=== PATIENT | male | born 1950 | race Caucasian/White ===

== ENCOUNTER → 2021-09-20 02:31 | Outpatient (CLI) | payer MEDICARE, SELFPAY ==
[2021-09-20 20:10] LABS: SARS-CoV-2 RNA PCR Negative
== END ==
PROVIDERS: PCP Family Medicine; Visit Provider Internal Medicine Gastroenterology
DX: Z01.812 Encounter for preprocedural laboratory examination (principal); Z20.822 Contact with and (suspected) exposure to COVID-19
CPT/HCPCS: C9803; U0003; U0005

== ENCOUNTER 2021-09-23 02:07 | Day surgery (SDC) | payer MEDICARE, SELFPAY ==
[2021-09-06 09:28] VITALS: BMI 26.7
--- NOTE | 2021-09-23 07:57 | WPDANESEPPF ---
Anes - Initial Pre Proc Eval Procedure: Operation Date: 09/23/21 10:30 Proposed Procedures p Screening Colonoscopy - Matheus Oliva MD Date/Time: 09/23/21 07:57 Surgeon: Matheus Oliva MD Pre Op Diagnosis: hx of colon polyps Patient Data Age: 71 Gender: M Height: 1.8 m Weight: 87 kg Allergies Allergy/AdvReac Type Severity Reaction Status Date / Time No Known Allergies Allergy Mild Verified 09/23/21 09:46 Home Medications Medication Instructions Recorded Confirmed Type albuterol sulfate 90 mcg/actuation 2 puff INHALATION Q4-6H PRN gm 10/06/19 09/23/21 History aerosol inhaler atorvastatin 10 mg tablet 10 mg PO DAILY #90 tablet 06/27/21 09/23/21 Rx amlodipine 10 mg tablet 10 mg PO DAILY #90 tablet 08/01/21 09/23/21 Rx cholecalciferol (vitamin D3) 25 mcg PO DAILY 09/06/21 09/23/21 History [Vitamin D3] fluticasone propionate 50 2 spray INTRANASAL DAILY #8.8 ml 09/06/21 09/23/21 Rx mcg/actuation nasal spray,suspension glucos sul 8MWj-[id number]-rocwh-C-Mn 1 cap PO DAILY 09/06/21 09/23/21 History [Glucosamine Chondroitin] methylprednisolone 4 mg tablets in See Rx Instructions PO PER PKG DIR 09/06/21 09/23/21 Rx a dose pack #21 ea doywrtaf-kgc-ffois-vit K-lycop 1 tablet PO DAILY 09/06/21 09/23/21 History [One-A-Day Men's Multivitamin] azelastine 137 mcg (0.1 %) nasal 1 spray INTRANASAL Q12H #30 ml 09/08/21 09/23/21 Rx spray aerosol Patient hx anesthesia problems: none Family hx anesthesia problems: none Results Review: All pre-operative results and documents have been reviewed as part of the pre-operative evaluation. [facility] Past Medical History Medical History Asthma Benign hypertension Eczema Heart murmur History of colon polyps Hypertension Osteoarthritis of left knee Surgical History Surgical History History of tonsillectomy S/P excision of lipoma 1980s - Back Family History Family History Mother Carcinoma of colon Social History Social History Smoking status: Never smoker Second hand tobacco smoke exposure: No Alcohol intake: never Substance use: never Substance use type: does not use Living arrangements: with family Gender identity (if verbalized by the patient): Male Spiritual care concerns: No Anes - Eval Final PreProcedure Day of Procedure 09/23/21 07:57 Patient weight: overweight Heart: regular rate and rhythm Lungs: clear to auscultation and normal air movement Airway: Mallampati scale class II Neurological: alert and oriented Last oral intake: >/= 8 hours ASA classification: II Emergent: no Anesthetic plan: proceed Anesthesia type and monitoring: general GIVS and standard monitoring Results Review: All pre-operative results and documents have been reviewed as part of the pre-operative evaluation. Informed Consent: The patient's anesthetic plan and its attendant risks and benefits were discussed with the patient/family/POA. Questions were solicited and answers provided to the satisfaction of the patient/family/POA.
[2021-09-23 09:47] VITALS: BP 153/92; PULSE 96; RESP 18; TEMP 36.3; O2SAT 100; BMI 26.6
[2021-09-23] MEDS: LACTATED RINGERS 1,000 ML 150 ML IV CONT (09:51)
--- NOTE | 2021-09-23 10:30 | WPDGICN ---
Assessment and Plan Assessment and plan (1) Encounter for screening colonoscopy: Code(s): Z12.11 - Encounter for screening for malignant neoplasm of colon Status: Acute Assessment and Plan: Patient presents today for screening colonoscopy. Family history is significant his father had metastatic cancer to the liver presumed to be from colon primary. Further recommendations will be given after colonoscopy. GI Consult Note Consult date/time: 09/23/21 10:30 HPI: Grupo Perez is a 71 year old male Presents for screening colonoscopy. Patient's current weight appetite bowel movements are normal. He denies abdominal pain. He has had no bleeding. Patient's last colonoscopy 7 years ago was unremarkable. Family history is significant that is father had liver cancer that was felt to be metastatic in presumed to be from the colon but never proven. Patient presents today for neoplasia screening colonoscopy. Review of Systems Review of Systems: All systems reviewed & are unremarkable except as noted in HPI and below PMFSH Past Medical History Medical History Asthma Benign hypertension Eczema Heart murmur History of colon polyps Hypertension Osteoarthritis of left knee Surgical History Surgical History History of tonsillectomy S/P excision of lipoma 1980s - Back Family History Family History Mother Carcinoma of colon Social History Social History Smoking status: Never smoker Second hand tobacco smoke exposure: No Alcohol intake: never Substance use: never Substance use type: does not use Living arrangements: with family Gender identity (if verbalized by the patient): Male Spiritual care concerns: No Meds Home Medications and Allergies Home Medications Medication Instructions Recorded Confirmed Type albuterol sulfate 90 mcg/actuation 2 puff INHALATION Q4-6H PRN gm 10/06/19 09/23/21 History aerosol inhaler atorvastatin 10 mg tablet 10 mg PO DAILY #90 tablet 06/27/21 09/23/21 Rx amlodipine 10 mg tablet 10 mg PO DAILY #90 tablet 08/01/21 09/23/21 Rx cholecalciferol (vitamin D3) 25 mcg PO DAILY 09/06/21 09/23/21 History [Vitamin D3] fluticasone propionate 50 2 spray INTRANASAL DAILY #8.8 ml 09/06/21 09/23/21 Rx mcg/actuation nasal spray,suspension glucos sul 5VNj-tsl-zhcjv-C-Mn 1 cap PO DAILY 09/06/21 09/23/21 History [Glucosamine Chondroitin] methylprednisolone 4 mg tablets in See Rx Instructions PO PER PKG DIR 09/06/21 09/23/21 Rx a dose pack #21 ea bqensqbi-nqt-mgxvz-vit K-lycop 1 tablet PO DAILY 09/06/21 09/23/21 History [One-A-Day Men's Multivitamin] azelastine 137 mcg (0.1 %) nasal 1 spray INTRANASAL Q12H #30 ml 09/08/21 09/23/21 Rx spray aerosol Allergies Allergy/AdvReac Type Severity Reaction Status Date / Time No Known Allergies Allergy Mild Verified 09/23/21 09:46 Vital Signs Vital Signs - 24 hr 09/23/21 09:47 Temperature 97.4 F L Pulse Rate 96 Respiratory Rate 18 Blood Pressure 153/92 H Pulse Oximetry 100 Exam Narrative: Physical exam reveals patient to be alert. Vital signs stable. HEENT exam is unremarkable. Lungs are clear to auscultation and percussion heart is without murmur or extra sounds. Abdominal exam bowel sounds are present soft nontender with no hepatosplenomegaly. Digital external rectal exam is normal.
[2021-09-23 10:47] VITALS: BP 83/52; PULSE 60; RESP 17; O2SAT 98
[2021-09-23 10:57] VITALS: BP 94/61; PULSE 82; RESP 18; O2SAT 99
[2021-09-23 11:07] VITALS: BP 121/86; PULSE 76; RESP 18; O2SAT 99
== END 2021-09-23 11:16 | disposition home or self-care (01) ==
PROVIDERS: PCP Family Medicine; Visit Provider Internal Medicine Gastroenterology
PROC: 0DJD8ZZ Inspection of Lower Intestinal Tract, Via Natural or Artificial Opening Endoscopic (ICD-10-PCS; CPT 45378; principal; 2021-09-23 10:30)
DX: Z12.11 Encounter for screening for malignant neoplasm of colon (principal); K64.8 Other hemorrhoids; K57.30 Diverticulosis of large intestine without perforation or abscess without bleeding; I10 Essential (primary) hypertension; J45.909 Unspecified asthma, uncomplicated; L30.9 Dermatitis, unspecified; R01.1 Cardiac murmur, unspecified; M17.12 Unilateral primary osteoarthritis, left knee; Z79.51 Long term (current) use of inhaled steroids
CPT/HCPCS: G0121; J2704; J7120

== ENCOUNTER 2022-08-16 09:16 | Outpatient (CLI) | payer MEDICARE, SELFPAY ==
[2022-08-16 18:52] LABS: Basophils Percent Auto 0.6 % (0.2-1.2); Eosinophils Absolute Auto 0.3 K/mm3 (0-0.3); Eosinophils Percent Auto 4.5 % (0-4.4); Hematocrit 48.1 % (42.0-52.0); Hemoglobin 15.7 g/dL (14.0-18.0); Immature Granulocyte Absolute 0.01 K/mm3 (0.00-0.031); Immature Granulocyte Percent A 0.2 % (0-0.5); Lymphocytes Absolute Auto 1.43 K/mm3 (0.9-3.2); Lymphocytes Percent Auto 22.3 % (18.3-44.2); Mean Corpuscular HGB Conc 32.6 g/dl (32-36); Mean Corpuscular Hemoglobin 30.1 pg (26-34); Mean Corpuscular Volume 92.3 fl (80-100); Monocytes Absolute Auto 0.5 K/mm3 (0.1-0.6); Monocytes Percent Auto 8.1 % (2.6-8.5); Neutrophils Absolute Auto 4.1 K/mm3 (1.3-6.7); Neutrophils Percent Auto 64.3 % (45.5-73.1); Platelet Count Result 249 k/mm3 (150-375); Red Blood Count 5.21 M/mm3 (4.6-6.20); Red Cell Distribution Width 12.8 % (11.5-14.5); White Blood Count 6.4 K/mm3 (4.5-10.0)
[2022-08-16 18:57] LABS: Alanine Aminotransferase 46 U/L (6-50); Albumin Level 5.1 g/dL (3.5-5.1); Alkaline Phosphatase 114 U/L (38-126); Anion Gap 10 mmol/L (8-16); Aspartate Amino Transferase 82 U/L (17-59); Blood Urea Nitrogen 15 mg/dL (9-20); Calcium 9.5 mg/dL (8.4-10.2); Carbon Dioxide 26 mmol/L (22-30); Chloride 104 mmol/L (98-107); Cholesterol 193 mg/dL (0-200); Estimated Glomerular Filt Rate > 60; Glucose 100 mg/dL (65-110); HDL Direct 71 mg/dL; Potassium 4.2 mmol/L (3.4-5.0); Sodium 140 mmol/L (137-145); Triglycerides 55 mg/dL (<150)
[2022-08-16 19:11] LABS: LDL Cholesterol Direct 73 mg/dL
[2022-08-16 19:30] LABS: Prostate Specific Antigen 4.3 ng/mL (< OR = 4.0)
[2022-08-16 19:38] LABS: Vitamin D 25 Hydroxy 48.1 ng/mL
== END 2022-08-16 09:17 | disposition home or self-care (01) ==
PROVIDERS: PCP Family Medicine; Visit Provider Family Medicine
DX: E78.5 Hyperlipidemia, unspecified (principal); I10 Essential (primary) hypertension; Z12.5 Encounter for screening for malignant neoplasm of prostate; Z79.899 Other long term (current) drug therapy; E53.8 Deficiency of other specified B group vitamins; E55.9 Vitamin D deficiency, unspecified
CPT/HCPCS: 36415; 80053; 80061; 82306; 82607; 84153; 84443; 85025; G0103

== ENCOUNTER 2022-09-15 08:11 | Outpatient (CLI) | payer MEDICARE, SELFPAY ==
[2022-09-15 21:35] LABS: Alanine Aminotransferase 51 U/L (6-50); Albumin Level 4.7 g/dL (3.5-5.1); Alkaline Phosphatase 106 U/L (38-126); Anion Gap 4 mmol/L (8-16); Aspartate Amino Transferase 47 U/L (17-59); Bilirubin,Total 0.6 mg/dL (0.2-1.3); Blood Urea Nitrogen 14 mg/dL (9-20); Calcium 9.2 mg/dL (8.4-10.2); Carbon Dioxide 32 mmol/L (22-30); Chloride 105 mmol/L (98-107); Estimated Glomerular Filt Rate > 60; Glucose 102 mg/dL (65-110); Potassium 3.9 mmol/L (3.4-5.0); Sodium 141 mmol/L (137-145)
[2022-09-18 20:20] LABS: PSA, Total 3.1 ng/mL (<=4.0); Percent Free Prostate Spec Ag 26 % (>25)
== END 2022-09-15 08:12 | disposition home or self-care (01) ==
LOC: ANHGOSHLAB 08:16
PROVIDERS: PCP Family Medicine; Visit Provider Family Medicine
DX: R97.20 Elevated prostate specific antigen [PSA] (principal); R79.89 Other specified abnormal findings of blood chemistry
CPT/HCPCS: 36415; 80053; 84153; 84154

== ENCOUNTER 2022-10-04 14:07 | Outpatient (CLI) | payer MEDICARE, SELFPAY ==
[2022-10-04 16:07] LABS: SARS-CoV-2 RNA PCR Negative
== END 2022-10-04 14:08 | disposition home or self-care (01) ==
LOC: ANHLAB 14:10
PROVIDERS: PCP Family Medicine; Visit Provider Nurse Practitioner
DX: Z11.52 Encounter for screening for COVID-19 (principal); Z20.822 Contact with and (suspected) exposure to COVID-19
CPT/HCPCS: U0003; U0005

== ENCOUNTER 2023-08-23 09:20 | Outpatient (CLI) | payer MEDICARE, SELFPAY ==
[2023-08-23 12:00] LABS: Basophils Absolute Auto 0.1 K/mm3 (0.0-0.1); Basophils Percent Auto 0.7 % (0.2-1.2); Eosinophils Absolute Auto 0.3 K/mm3 (0-0.3); Hematocrit 45.1 % (42.0-52.0); Hemoglobin 14.9 g/dL (14.0-18.0); Immature Granulocyte Absolute 0.02 K/mm3 (0.00-0.031); Immature Granulocyte Percent A 0.3 % (0-0.5); Lymphocytes Absolute Auto 1.72 K/mm3 (0.9-3.2); Mean Corpuscular Hemoglobin 29.7 pg (26-34); Mean Corpuscular Volume 89.8 fl (80-100); Mean Platelet Volume 10.1 fl (7.4-10.4); Monocytes Absolute Auto 0.6 K/mm3 (0.1-0.6); Monocytes Percent Auto 7.5 % (2.6-8.5); Neutrophils Absolute Auto 4.8 K/mm3 (1.3-6.7); Neutrophils Percent Auto 64.5 % (45.5-73.1); Platelet Count Result 262 k/mm3 (150-375); Red Blood Count 5.02 M/mm3 (4.6-6.20); Red Cell Distribution Width 12.4 % (11.5-14.5); White Blood Count 7.5 K/mm3 (4.5-10.0)
[2023-08-23 12:12] LABS: Alanine Aminotransferase 32 U/L (6-50); Albumin Level 4.7 g/dL (3.5-5.1); Alkaline Phosphatase 117 U/L (38-126); Anion Gap 9 mmol/L (8-16); Aspartate Amino Transferase 51 U/L (17-59); Bilirubin,Total 0.7 mg/dL (0.2-1.3); Blood Urea Nitrogen 14 mg/dL (9-20); Carbon Dioxide 30 mmol/L (22-30); Chloride 101 mmol/L (98-107); Cholesterol 176 mg/dL (0-200); Estimated Glomerular Filt Rate > 60; Glucose 105 mg/dL (65-110); HDL Direct 62 mg/dL; Potassium 3.7 mmol/L (3.4-5.0); Sodium 140 mmol/L (137-145); Triglycerides 57 mg/dL (<150)
[2023-08-23 12:24] LABS: LDL Cholesterol Direct 74 mg/dL
[2023-08-23 12:42] LABS: Prostate Specific Antigen 3.4 ng/mL (< OR = 4.0)
[2023-08-23 13:39] LABS: Hemoglobin A1C 5.5 % (<5.7)
[2023-08-23 18:13] LABS: Vitamin D 25 Hydroxy 44.3 ng/mL
== END 2023-08-23 09:21 | disposition home or self-care (01) ==
PROVIDERS: PCP Family Medicine; Visit Provider Family Medicine
DX: Z12.5 Encounter for screening for malignant neoplasm of prostate (principal); I10 Essential (primary) hypertension; R73.9 Hyperglycemia, unspecified; E78.5 Hyperlipidemia, unspecified; E55.9 Vitamin D deficiency, unspecified; N52.9 Male erectile dysfunction, unspecified; E53.8 Deficiency of other specified B group vitamins
CPT/HCPCS: 36415; 80053; 80061; 82306; 82607; 83036; 84153; 84443; 85025; G0103

== ENCOUNTER 2024-01-15 10:54 | Outpatient (CLI) | payer MEDICARE, SELFPAY ==
[2024-01-15 19:45] LABS: Anion Gap 8 mmol/L (4-12); Blood Urea Nitrogen 13 mg/dL (9-20); Calcium 9.4 mg/dL (8.4-10.2); Carbon Dioxide 28 mmol/L (22-30); Chloride 105 mmol/L (98-107); Estimated Glomerular Filt Rate > 60; Glucose 113 mg/dL (65-110); Potassium 3.8 mmol/L (3.4-5.0); Sodium 141 mmol/L (137-145)
[2024-01-15 20:11] LABS: Appearance Urine Clear (Clear); Bilirubin Urine Negative (Negative); Blood Urine Negative (Negative); Color Urine Yellow (Yellow); Glucose Urine UA Negative (Negative); Ketones Urine Negative (Negative); Leukocyte Esterase Ur Negative LEU/UL (Negative); Nitrate Urine Negative (Negative); Protein Urine Negative (Negative); Specific Grav Ur 1.018 (1.001-1.035); pH Urine 6.5 (5.0-9.0)
[2024-01-15 20:11] LABS: Prostate Specific Antigen 46.2 ng/mL (< OR = 4.0)
[2024-01-15 20:24] LABS: Add Urine Microscopic? NO
== END 2024-01-15 10:55 | disposition home or self-care (01) ==
LOC: ANHGOSHLAB 10:56
PROVIDERS: PCP Family Medicine; Visit Provider Emergency Medicine
DX: R30.0 Dysuria (principal); R10.2 Pelvic and perineal pain; R97.20 Elevated prostate specific antigen [PSA]
CPT/HCPCS: 36415; 80048; 81003; 84153

== ENCOUNTER 2024-05-27 15:40 | Outpatient (CLI) | payer MEDICARE, SELFPAY ==
[2024-05-27 18:58] LABS: Alanine Aminotransferase 41 U/L (6-50); Albumin Level 4.4 g/dL (3.5-5.1); Alkaline Phosphatase 98 U/L (38-126); Anion Gap 9 mmol/L (4-12); Aspartate Amino Transferase 48 U/L (17-59); Bilirubin,Total 0.5 mg/dL (0.2-1.3); Blood Urea Nitrogen 21 mg/dL (9-20); Calcium 9.2 mg/dL (8.4-10.2); Carbon Dioxide 30 mmol/L (22-30); Chloride 101 mmol/L (98-107); Estimated Glomerular Filt Rate > 60; Glucose 119 mg/dL (65-110); Potassium 3.8 mmol/L (3.4-5.0); Sodium 140 mmol/L (137-145)
[2024-05-27 20:41] LABS: Hemoglobin A1C 5.9 % (<5.7)
== END 2024-05-27 15:41 | disposition home or self-care (01) ==
LOC: ANHGOSHLAB 15:41
PROVIDERS: PCP Family Medicine; Visit Provider Family Medicine
DX: R73.9 Hyperglycemia, unspecified (principal); I10 Essential (primary) hypertension
CPT/HCPCS: 36415; 80053; 83036

== ENCOUNTER 2024-10-21 14:08 | Outpatient (CLI) | payer MEDICARE, SELFPAY ==
[2024-10-21 16:52] LABS: Basophils Absolute Auto 0.1 K/mm3 (0.0-0.1); Eosinophils Absolute Auto 0.3 K/mm3 (0-0.3); Eosinophils Percent Auto 4.2 % (0-4.4); Hemoglobin 14.6 g/dL (14.0-18.0); Immature Granulocyte Absolute 0.02 K/mm3 (0.00-0.031); Immature Granulocyte Percent A 0.3 % (0-0.5); Lymphocytes Absolute Auto 1.56 K/mm3 (0.9-3.2); Lymphocytes Percent Auto 25.4 % (18.3-44.2); Mean Corpuscular HGB Conc 32.4 g/dl (32-36); Mean Corpuscular Hemoglobin 29.6 pg (26-34); Mean Corpuscular Volume 91.1 fl (80-100); Mean Platelet Volume 9.8 fl (7.4-10.4); Monocytes Absolute Auto 0.5 K/mm3 (0.1-0.6); Neutrophils Absolute Auto 3.8 K/mm3 (1.3-6.7); Neutrophils Percent Auto 61.1 % (45.5-73.1); Platelet Count Result 324 k/mm3 (150-375); Red Blood Count 4.94 M/mm3 (4.6-6.20); Red Cell Distribution Width 13.2 % (11.5-14.5); White Blood Count 6.1 K/mm3 (4.5-10.0)
[2024-10-21 16:57] LABS: Add Urine Microscopic? YES; Appearance Urine Clear (Clear); Bilirubin Urine 2+ (Negative); Blood Urine Negative (Negative); Color Urine Dark Yellow (Yellow); Glucose Urine UA Negative (Negative); Ketones Urine 1+ mg/dL (Negative); Leukocyte Esterase Ur Negative LEU/UL (Negative); Nitrate Urine Negative (Negative); Protein Urine Negative (Negative); Specific Grav Ur 1.017 (1.001-1.035); Urobilinogen Urine 0.2 mg/dL (<2.0); pH Urine 5.5 (5.0-9.0)
[2024-10-21 18:51] LABS: Vitamin D 25 Hydroxy 57.6 ng/mL
[2024-10-21 19:41] LABS: Alanine Aminotransferase 469 U/L (6-50); Albumin Level 4.7 g/dL (3.5-5.1); Alkaline Phosphatase 1012 U/L (38-126); Anion Gap 14 mmol/L (4-12); Aspartate Amino Transferase 286 U/L (17-59); Bilirubin,Total 6.1 mg/dL (0.2-1.3); Blood Urea Nitrogen 12 mg/dL (9-20); Calcium 9.9 mg/dL (8.4-10.2); Carbon Dioxide 27 mmol/L (22-30); Chloride 101 mmol/L (98-107); Cholesterol 176 mg/dL (0-200); Estimated Glomerular Filt Rate > 60; Glucose 95 mg/dL (65-110); HDL Direct 85 mg/dL; Potassium 3.5 mmol/L (3.4-5.0); Sodium 142 mmol/L (137-145); Triglycerides 58 mg/dL (<150)
[2024-10-21 19:52] LABS: LDL Cholesterol Direct 58 mg/dL
[2024-10-24 14:54] LABS: PSA, Free 0.4 ng/mL; PSA, Total 2.6 ng/mL (< OR = 4.0); Percent Free Prostate Spec Ag 15 % (calc) (>25)
== END 2024-10-21 14:09 | disposition home or self-care (01) ==
LOC: ANHGOSHLAB 14:09
PROVIDERS: PCP Family Medicine; Visit Provider Family Medicine
DX: R30.0 Dysuria (principal); I10 Essential (primary) hypertension; E55.9 Vitamin D deficiency, unspecified; E53.8 Deficiency of other specified B group vitamins; E78.2 Mixed hyperlipidemia; R73.03 Prediabetes; E78.5 Hyperlipidemia, unspecified; R97.20 Elevated prostate specific antigen [PSA]
CPT/HCPCS: 36415; 80053; 80061; 81001; 82306; 82607; 83036; 84153; 84154; 84443; 85025

== ENCOUNTER 2024-10-22 12:14 | Emergency (ER) | payer MEDICARE, SELFPAY ==
--- NOTE | ~2024-10-22 | CT_ITS ---
CLINICAL INDICATION: Abnormal blood work with his primary care physician/Alexandra the common to the emerge ncy department for full evaluation. COMPARISON: None. TECHNIQUE: Multiple contiguous axial images of the abdomen and pelvis were performed following the ad ministration of with 100 mL Omnipaque-350 intravenous contrast The dose-length product (DLP) was 635.81 mGy-cm. Automated exposure control and iterative reconstruction technique were employed. FINDINGS/OBSERVATIONS: Chest: The lungs are clear. No pulmonary nodules or discrete pulmonary masses are appreciated. No pathologically enlarged or morphologically suspicious lymph nodes within the mediastinum, bilatera l axilla or bilateral pulmonary kyle. The heart is of normal size, without pericardial effusion. Small hiatal hernia is present. Liver: Within segment 6 is a well-circumscribed focus of decreased attenuation measuring 34 x 38 x 39 mm (anterior to posterior x medial to lateral x cranial to caudal dimension), with attenuation value s minimally denser than simple fluid. This focus within segment 6 effaces the biliary radicals and in trahepatic vasculature for which a mass is suspected. An additional well-circumscribed focus of decreased attenuation is identified within segment 8 of the liver measuring 9.8 x 10.6 x 11.2 mm. Scattered smaller foci of decreased attenuation are also present, too small to characterize. Gallbladder and biliary system: Significant intrahepatic and extrahepatic biliary ductal dilatation is identified. The common bile duct measures 18 mm in caliber The gallbladder is distended and hydropic. . Pancreas: Dilatation of the main pancreatic duct is also noted, extending to the head of the pancreas. An irreg ular focus of mixed attenuation with angular margins is identified within the left, likely the source of obstruction. Alternatively, mixed attenuation is identified within the head of the pancreas with surrounding inflammatory change for which a pancreatic mass is not excluded. Spleen: The spleen enhances homogeneously and is not enlarged measuring 6 cm in longitudinal dimension. Kidneys: The bilateral kidneys enhance symmetrically without hydronephrosis or renal calculi. Adrenal glands: Unremarkable. Gastrointestinal tract: Colonic diverticulosis without surrounding inflammatory change. Appendix: The appendix is not definitively visualized. However, no pericecal inflammatory change is identified suggest the presence of acute appendicitis. Vasculature: A clear fat plane is identified surrounding both the celiac axis and the superior mesenteric artery o rigin. The superior mesenteric artery traverses the pancreas, adjacent to this mass, likely involved. Irregular flow detected along the posterior wall of the portal vein, which is likely involved. Filling defects are suspected within the inferior vena cava, at the level of the left renal vein, whi ch may represent tumor thrombus. Lymph nodes: Lymphadenopathy is identified within the retroperitoneum, and within the lesser sac. A morphologically suspicious lymph node is also detected at the vikki hepatis measuring 9 mm in short axis dimension. Pelvic structures: The bladder is distended, and otherwise unremarkable. The prostate gland is not enlarged, but contains punctate calcifications.. Body wall and musculoskeletal: Small fat-containing umbilical hernia. Bridging endplate osteophytes at multiple levels in the lower thoracic and lumbosacral spine are iden tified, consistent with diffuse idiopathic skeletal hyperostosis (DISH). No lytic or blastic lesions are identified. IMPRESSION: Findings within the upper abdomen which most likely represent a primary pancreatic malignancy, with i ntra and extrahepatic biliary ductal dilatation, likely metastatic disease within the liver and possi ble vascular involvement (with the superior mesenteric artery, portal vein and IVC), as detailed abov e. Consultation with surgical oncology and medical oncology is recommended. Further evaluation may be performed with MRI, with pancreatic mass protocol and MRCP. These findings were discussed with Senia Schwartz APRN at 8:00 PM on 10/22/2024 Reviewed, dictated and finalized at location A. D SEISMOLOGIST IMPRESSION: Findings within the upper abdomen which most likely represent a primary pancrea tic malignancy, with intra and extrahepatic biliary ductal dilatation, likely m etastatic disease within the liver and possible vascular involvement (with the superior mesenteric artery, portal vein and IVC), as detailed above. Consultation with surgical oncology and medical oncology is recommended. Further evaluation may be performed with MRI, with pancreatic mass protocol and MRCP. These findings were discussed with Senia Schwartz APRN at 8:00 PM on 10/22/2024
[2024-10-22 12:35] VITALS: BP 135/77; PULSE 86; RESP 18; TEMP 36.6; O2SAT 99
--- NOTE | 2024-10-22 15:05 | ECG_ITS ---
Test Date: 2024-10-22 18:20:39 Measurements Intervals [place] Rate: 72 P: 73 AK: 189 QRS: 31 QRSD: 97 T: 44 QT: 406 QTc: 445 Interpretive Statements SINUS RHYTHM WITH OCCASIONAL VENTRICULAR PREMATURE COMPLEXES DELAYED PRECORDIAL R/S TRANSITION BORDERLINE ECG No previous ECG available for comparison Electronically Signed On 10-23-2024 06:07:35 [employer] by Jonnathan Lomax D.O.
--- NOTE | 2024-10-22 15:09 | ED.RECABL ---
HPI - Recheck/Abnormal Lab/Rx General Chief Complaint: Recheck/Abnormal Lab/Rx <Beverly Schwartz APRN - Last Filed: 10/22/24 15:16> Stated Complaint: Elevated liver enzymes <Beverlybita Schwartz APRN - Last Filed: 10/22/24 15:16> Time Seen by Provider: 10/22/24 15:00 <Beverly Schwartz APRN - Last Filed: 10/22/24 15:16> Focused HPI: Patient is a 74-year-old male who presents to the ER following abnormal blood work at his primary care provider's office. He reports for the last 2 weeks he has experienced dark urine and increased lethargy. Patient's last bowel movement was yesterday and it was ?loose and forrest/cream colored. He denies any recent abdominal pain or alcohol use. Patient endorses a history of respiratory issues, hyperlipidemia and hypertension. He denies any chest pain, shortness of breath, recent fevers, or back pain. GENERAL: Ill-appearing (mild jaundice), well-nourished, and in no acute distress. HEAD: Normocephalic, atraumatic. CHEST: Clear to auscultation. ?No respiratory distress. HEART: Regular rate and rhythm.? NEURO: ?Alert and oriented x3. Patient screened in triage and initial orders placed.? ?Additional care and disposition to be based upon?diagnostic testing and treatment. <Beverly Schwartz APRN - Last Filed: 10/22/24 15:16> Source: patient <Jamari Mcadams PA-C - Last Filed: 10/22/24 23:05> Mode of arrival: ambulatory <Jamari Mcadams PA-C - Last Filed: 10/22/24 23:05> Limitations: no limitations <Jamari Mcadams PA-C - Last Filed: 10/22/24 23:05> History of Present Illness HPI narrative: Agree with triage note above. <Jamari Mcadams PA-C - Last Filed: 10/22/24 23:05> Related Data Home Medications: Home Medications ?Medication ?Instructions ?Recorded ?Confirmed ?Last Taken ?Type cholecalciferol (vitamin D3) 25 25 mcg PO DAILY 09/06/21 10/22/24 10/22/24 History mcg (1,000 unit) tablet (Vitamin D3) glucosamine sulf dipot 1 cap PO DAILY 09/06/21 10/22/24 10/22/24 History chlr,msm,chond 550 mg-C 30 mg-jonah 1 mg capsule (Glucosamine Chondroitin) bwdbgklf-zoemtxog-ggxbx acid 400 1 tablet PO DAILY 09/06/21 10/22/24 10/22/24 History mcg-vit K 20 mcg-lycop 300 mcg tablet (One-A-Day Men's Multivitamin) finasteride 5 mg tablet 5 mg PO DAILY 05/27/24 10/22/24 10/22/24 History amlodipine 10 mg tablet 10 mg PO DAILY 10/21/24 10/22/24 10/22/24 History <Beverly Schwartz APRN - Last Filed: 10/22/24 15:16> Allergies/Adverse Reactions: Allergies Allergy/AdvReac Type Severity Reaction Status Date / Time No Known Allergies Allergy Mild Verified 10/22/24 19:00 <Beverly Schwartz APRN - Last Filed: 10/22/24 15:16> Review of Systems Review of Systems: All systems as dictated in HPI <Jamari Mcadams PA-C - Last Filed: 10/22/24 23:05> [facility] Past Medical History Medical History: Medical History Prediabetes Chronic venous insufficiency of lower extremity Vitamin D deficiency Erectile dysfunction History of colon polyps Heart murmur Exercise-induced asthma Benign hypertension Hypertension Asthma Osteoarthritis of left knee Eczema <Beverly Schwartz APRN - Last Filed: 10/22/24 15:16> Surgical History Surgical History: Surgical History S/P excision of lipoma 1980s - Back History of tonsillectomy <Beverly Schwartz APRN - Last Filed: 10/22/24 15:16> Family History Family History: Family History Mother Carcinoma of colon <Beverly Schwartz APRN - Last Filed: 10/22/24 15:16> Social History Social History: Social History Smoking status: Never smoker Second hand tobacco smoke exposure: No Alcohol intake: never Substance use: never Substance use type: does not use Lack of Transportation: No Lack of Food: Never True Current Housing: I Have Housing Concerned About Future Housing: No Difficulty Paying Gas/Electric Bills: No Difficulty Paying for Meds: No Currently Unemployed: No Education: Bachelor's Degree Difficulty w/ Childcare or Family Care: No Living arrangements: with family Occupation/Education: retired Gender identity (if verbalized by the patient): Male Spiritual care concerns: No Agree to blood products: Yes <Beverly Schwartz APRN - Last Filed: 10/22/24 15:16> Exam Narrative: GENERAL: Well-appearing, well-nourished, and in no acute distress. HEAD: Normocephalic, atraumatic. EYES: PERRLA and EOMI. ENT: Nares clear, no rhinorrhea or epistaxis. Mucous membranes moist. Oropharynx without tonsillar hypertrophy exudate or other lesions. NECK: Supple. No adenopathy or masses. CHEST: No respiratory distress. Clear to auscultation. No wheezes rales or rhonchi HEART: Regular rate and rhythm. No murmur heard. Normal peripheral pulses. ABDOMEN: Soft, nontender, nondistended, normal active bowel sounds. MSK: Normal range of motion. No edema. SKIN: Warm, dry, no rash. NEURO: Alert and oriented x4. No focal deficits. PSYCH: Normal mood and affect. <Jamari Mcadams PA-C - Last Filed: 10/22/24 23:05> Course Vital Signs Vital signs: Vital Signs Temperature 97.9 F 10/22/24 12:35 Pulse Rate 86 10/22/24 12:35 Respiratory Rate 18 10/22/24 12:35 Blood Pressure 135/77 10/22/24 12:35 Pulse Oximetry 99 10/22/24 12:35 Temperature 97 F L 10/22/24 16:05 Pulse Rate 71 10/22/24 21:27 Respiratory Rate 16 10/22/24 21:27 Blood Pressure 138/70 10/22/24 21:27 Pulse Oximetry 97 10/22/24 21:27 <Beverly Schwartz APRN - Last Filed: 10/22/24 15:16> Vital Signs Temperature 97.9 F 10/22/24 12:35 Pulse Rate 86 10/22/24 12:35 Respiratory Rate 18 10/22/24 12:35 Blood Pressure 135/77 10/22/24 12:35 Pulse Oximetry 99 10/22/24 12:35 Temperature 97 F L 10/22/24 16:05 Pulse Rate 71 10/22/24 21:27 Respiratory Rate 16 10/22/24 21:27 Blood Pressure 138/70 10/22/24 21:27 Pulse Oximetry 97 10/22/24 21:27 <Jamari Mcadams PA-C - Last Filed: 10/22/24 23:05> MDM - Recheck/Abnormal Lab/Rx MDM Narrative Medical decision making narrative: This patient has elected to leave against medical advice. In my opinion, the patient has capacity to leave AMA. The patient is clinically sober, free from distracting injury, appears to have intact insight and judgment and reason, and in my opinion has capacity to make decisions. I explained to the patient that his symptoms may represent severe compression of the gall bladder/liver and the patient verbalized understanding of my concerns. I had a discussion with the patient about their workup and results, and that they may still have life threatening illness. I informed the patient that the next step in diagnosis and treatment would be transfer to higher level of care for further testing and treatment and they verbalized understanding of this as well. I explained the risks of leaving without further workup or treatment, which included reasonably foreseeable complications such as , serious injury, permanent disability. The patient is refusing any further care, specifically transfer to tertiary care, and is leaving against medical advice. I am unable to convince the patient to stay. I have asked them to return as soon as possible to complete their evaluation, and also explained that they were welcome to return to the ER for further evaluation whenever they choose. I have asked the patient to follow up with their primary doctor as soon as possible. I have answered all their questions. Patient signed AMA paperwork. <Jamari Mcadams PA-C - Last Filed: 10/22/24 23:05> Lab Data Result diagrams: 10/22/24 15:22 10/22/24 15:22 <Beverly Kristi Schwartz, [employer] ATTENDANT - Last Filed: 10/22/24 15:16> Labs: Lab Results 10/22/24 Range/Units 15:22 WBC 6.4 (4.5-10.0) K/mm3 RBC 4.75 (4.6-6.20) M/mm3 Hgb 14.2 (14.0-18.0) g/dL Hct 42.9 (42.0-52.0) % MCV 90.3 (80-100) fl MCH 29.9 (26-34) pg MCHC 33.1 (32-36) g/dl RDW 13.1 (11.5-14.5) % Plt Count 299 (150-375) k/mm3 MPV 9.5 (7.4-10.4) fl Immature Gran % (Auto) 0.2 (0-0.5) % Neut % (Auto) 64.3 (45.5-73.1) % Lymph % (Auto) 21.7 (18.3-44.2) % Whiteside % (Auto) 9.0 H (2.6-8.5) % Eos % (Auto) 3.9 (0-4.4) % Baso % (Auto) 0.9 (0.2-1.2) % Lymph # (Auto) 1.40 (0.9-3.2) K/mm3 Whiteside # (Auto) 0.6 (0.1-0.6) K/mm3 Eos # (Auto) 0.3 (0-0.3) K/mm3 Baso # (Auto) 0.1 (0.0-0.1) K/mm3 Abs Immat Gran (auto) 0.01 (0.00-0.031) K/mm3 Absolute Neuts (auto) 4.1 (1.3-6.7) K/mm3 Absolute Nucleated RBC 0.000 (0.0-0.012) K/mm3 Nucleated RBC % 0.0 (0.0-0.2) % PT 14.3 (11.1-14.7) Seconds INR 1.1 APTT 27.9 (22.3-36.8) Seconds Sodium 141 (137-145) mmol/L Potassium 3.8 (3.4-5.0) mmol/L Chloride 101 (98-107) mmol/L Carbon Dioxide 26 (22-30) mmol/L Anion Gap 14 H (4-12) mmol/L BUN 12 (9-20) mg/dL Creatinine 0.72 (0.7-1.3) mg/dL Estim Creat Clear Calc 80 ml/min Estimated GFR > 60 (59 - ) Glucose 111 H (65-110) mg/dL Calcium 9.3 (8.4-10.2) mg/dL Total Bilirubin 5.6 H (0.2-1.3) mg/dL AST 269 H (17-59) U/L ALT 449 H (6-50) U/L Alkaline Phosphatase 864 H (38-126) U/L Troponin I < 0.012 (0.000-0.034) ng/mL Total Protein 8.0 (6.3-8.2) g/dL Albumin 4.3 (3.5-5.1) g/dL Lipase 3290 H (23-300) U/L Urine Color Dark yellow (Yellow) Urine Appearance Cloudy H (Clear) Urine pH 5.5 (5.0-9.0) Ur Specific [place] 1.023 (1.001-1.035) Urine Protein Trace (Negative) mg/dL Urine Glucose (UA) Negative (Negative) mg/dL Urine Ketones Trace H (Negative) mg/dL Ur Blood (Man) Negative (Negative) Urine Nitrate Negative (Negative) Urine Bilirubin 3+ H (Negative) Urine Urobilinogen 1.0 (<2.0) mg/dL Add Ur Microanalysis Reviewed Leukocyte Esterase Rfl Trace H (Negative) OLLIE/UL Urine RBC 3-5 H (0-2) /hpf Urine WBC 0-5 (0-3) /hpf Ur Squamous Epith Cells None seen (Few) /hpf Urine Bacteria None seen /hpf Urine Casts 0-2 <Beverly Schwartz, [employer] ATTENDANT - Last Filed: 10/22/24 15:16> Lab Results 10/22/24 Range/Units 15:22 WBC 6.4 (4.5-10.0) K/mm3 RBC 4.75 (4.6-6.20) M/mm3 Hgb 14.2 (14.0-18.0) g/dL Hct 42.9 (42.0-52.0) % MCV 90.3 (80-100) fl MCH 29.9 (26-34) pg MCHC 33.1 (32-36) g/dl RDW 13.1 (11.5-14.5) % Plt Count 299 (150-375) k/mm3 MPV 9.5 (7.4-10.4) fl Immature Gran % (Auto) 0.2 (0-0.5) % Neut % (Auto) 64.3 (45.5-73.1) % Lymph % (Auto) 21.7 (18.3-44.2) % Whiteside % (Auto) 9.0 H (2.6-8.5) % Eos % (Auto) 3.9 (0-4.4) % Baso % (Auto) 0.9 (0.2-1.2) % Lymph # (Auto) 1.40 (0.9-3.2) K/mm3 Whiteside # (Auto) 0.6 (0.1-0.6) K/mm3 Eos # (Auto) 0.3 (0-0.3) K/mm3 Baso # (Auto) 0.1 (0.0-0.1) K/mm3 Abs Immat Gran (auto) 0.01 (0.00-0.031) K/mm3 Absolute Neuts (auto) 4.1 (1.3-6.7) K/mm3 Absolute Nucleated RBC 0.000 (0.0-0.012) K/mm3 Nucleated RBC % 0.0 (0.0-0.2) % PT 14.3 (11.1-14.7) Seconds INR 1.1 APTT 27.9 (22.3-36.8) Seconds Sodium 141 (137-145) mmol/L Potassium 3.8 (3.4-5.0) mmol/L Chloride 101 (98-107) mmol/L Carbon Dioxide 26 (22-30) mmol/L Anion Gap 14 H (4-12) mmol/L BUN 12 (9-20) mg/dL Creatinine 0.72 (0.7-1.3) mg/dL Estim Creat Clear Calc 80 ml/min Estimated GFR > 60 (59 - ) Glucose 111 H (65-110) mg/dL Calcium 9.3 (8.4-10.2) mg/dL Total Bilirubin 5.6 H (0.2-1.3) mg/dL AST 269 H (17-59) U/L ALT 449 H (6-50) U/L Alkaline Phosphatase 864 H (38-126) U/L Troponin I < 0.012 (0.000-0.034) ng/mL Total Protein 8.0 (6.3-8.2) g/dL Albumin 4.3 (3.5-5.1) g/dL Lipase 3290 H (23-300) U/L Urine Color Dark yellow (Yellow) Urine Appearance Cloudy H (Clear) Urine pH 5.5 (5.0-9.0) Ur Specific [place] 1.023 (1.001-1.035) Urine Protein Trace (Negative) mg/dL Urine Glucose (UA) Negative (Negative) mg/dL Urine Ketones Trace H (Negative) mg/dL Ur Blood (Man) Negative (Negative) Urine Nitrate Negative (Negative) Urine Bilirubin 3+ H (Negative) Urine Urobilinogen 1.0 (<2.0) mg/dL Add Ur Microanalysis Reviewed Leukocyte Esterase Rfl Trace H (Negative) OLLIE/UL Urine RBC 3-5 H (0-2) /hpf Urine WBC 0-5 (0-3) /hpf Ur Squamous Epith Cells None seen (Few) /hpf Urine Bacteria None seen /hpf Urine Casts 0-2 <Jamari Mcadams PA-C - Last Filed: 10/22/24 23:05> Discharge Plan Discharge Clinical Impression: Abnormal CT of the abdomen, Mass of pancreas, Liver mass, Hyperbilirubinemia <Beverly Schwartz APRN - Last Filed: 10/22/24 15:16> Patient Disposition: Left Against Medical Advice <Beverly Schwartz APRN - Last Filed: 10/22/24 15:16> Condition: Stable <Beverly Schwartz APRN - Last Filed: 10/22/24 15:16> Patient Language: [place]ian <Beverly Schwartz APRN - Last Filed: 10/22/24 15:16> Prescriptions: No Action tadalafil [Cialis] 20 mg tablet 20 mg PO DAILY PRN (Reason: sexual activity) Qty: 30 0RF Rx Instructions: administer approximately 30min before sexual activity; do not use more than 1 dose per 24hrs finasteride 5 mg tablet 5 mg PO DAILY amlodipine 10 mg tablet 10 mg PO DAILY cholecalciferol (vitamin D3) [Vitamin D3] 25 mcg (1,000 unit) Tablet 25 mcg PO DAILY One-A-Day Men's Multivitamin 400-20-300 mcg Tablet 1 tablet PO DAILY Glucosamine Chondroitin 550-30-1 mg Capsule 1 cap PO DAILY albuterol sulfate 90 mcg/actuation HFA aerosol inhaler 2 puff INHALATION Q4-6H PRN (Reason: Shortness Of Breath) Qty: 8.5 1RF Rx Instructions: inhale 2 puff by inhalation route every 4 - 6 hours as needed fluticasone propionate 50 mcg/actuation spray,suspension 2 spray intranasal DAILY Qty: 16 5RF atorvastatin 10 mg tablet 10 mg PO QHS Qty: 90 1RF <Beverly Schwartz APRN - Last Filed: 10/22/24 15:16> Follow-up/Referrals: Rahat Moore MD [Primary Care Provider] - <Beverly Schwartz APRN - Last Filed: 10/22/24 15:16>
[2024-10-22 15:30] LABS: Basophils Absolute Auto 0.1 K/mm3 (0.0-0.1); Basophils Percent Auto 0.9 % (0.2-1.2); Eosinophils Absolute Auto 0.3 K/mm3 (0-0.3); Eosinophils Percent Auto 3.9 % (0-4.4); Hematocrit 42.9 % (42.0-52.0); Hemoglobin 14.2 g/dL (14.0-18.0); Immature Granulocyte Absolute 0.01 K/mm3 (0.00-0.031); Immature Granulocyte Percent A 0.2 % (0-0.5); Lymphocytes Percent Auto 21.7 % (18.3-44.2); Mean Corpuscular HGB Conc 33.1 g/dl (32-36); Mean Corpuscular Hemoglobin 29.9 pg (26-34); Mean Corpuscular Volume 90.3 fl (80-100); Mean Platelet Volume 9.5 fl (7.4-10.4); Monocytes Absolute Auto 0.6 K/mm3 (0.1-0.6); Neutrophils Absolute Auto 4.1 K/mm3 (1.3-6.7); Neutrophils Percent Auto 64.3 % (45.5-73.1); Platelet Count Result 299 k/mm3 (150-375); Red Blood Count 4.75 M/mm3 (4.6-6.20); Red Cell Distribution Width 13.1 % (11.5-14.5); White Blood Count 6.4 K/mm3 (4.5-10.0)
[2024-10-22 15:39] LABS: INR 1.1; Prothrombin Time 14.3 Seconds (11.1-14.7)
[2024-10-22 15:40] LABS: Partial Thromboplastin Time 27.9 Seconds (22.3-36.8)
[2024-10-22 15:42] LABS: Alanine Aminotransferase 449 U/L (6-50); Albumin Level 4.3 g/dL (3.5-5.1); Alkaline Phosphatase 864 U/L (38-126); Anion Gap 14 mmol/L (4-12); Aspartate Amino Transferase 269 U/L (17-59); Bilirubin,Total 5.6 mg/dL (0.2-1.3); Blood Urea Nitrogen 12 mg/dL (9-20); Calcium 9.3 mg/dL (8.4-10.2); Carbon Dioxide 26 mmol/L (22-30); Chloride 101 mmol/L (98-107); Estimated CRCL calculation 80 ml/min; Estimated Glomerular Filt Rate > 60; Glucose 111 mg/dL (65-110); Potassium 3.8 mmol/L (3.4-5.0); Sodium 141 mmol/L (137-145)
[2024-10-22 15:47] LABS: Add Urine Microscopic? YES; Appearance Urine Cloudy (Clear); Bacteria Urine None Seen /hpf; Bilirubin Urine 3+ (Negative); Blood Urine Negative (Negative); Color Urine Dark Yellow (Yellow); Glucose Urine UA Negative (Negative); Ketones Urine Trace mg/dL (Negative); Leukocyte Esterase Ur Trace LEU/UL (Negative); Need Manual Microscopic Reviewed; Nitrate Urine Negative (Negative); Non Pathogenic Casts 0-2; Protein Urine Trace mg/dL (Negative); Specific Grav Ur 1.023 (1.001-1.035); Squamous Epithelial Cell Urine None Seen /hpf (Few); WBC Urine 0-5 /hpf (0-3); pH Urine 5.5 (5.0-9.0)
[2024-10-22 15:52] LABS: Troponin I < 0.012 ng/mL (0.000-0.034)
[2024-10-22 15:55] LABS: Lipase 3290 U/L (23-300)
[2024-10-22 16:05] VITALS: BP 130/77; PULSE 75; RESP 17; TEMP 36.1; O2SAT 98
[2024-10-22 18:47] VITALS: BP 134/74; PULSE 79; RESP 18; O2SAT 100
--- OUTSIDE RECORDS SUMMARY | 2024-10-22 19:15 | XMS_ITS | Data Portability ---
Author Organization [place] [facility], Main Office Address [address] [place] [address] Care Team Providers Care Exchange Administrator Name Role Phone JUAN JOSÉ SALAZAR Primary Care Provider JUAN JOSÉ SALAZAR Referring Provider Assessment Encounter Date Assessment Date Assessment LastModified by Organization Details LastModified Time 09/24/2024 09/24/2024 HPI: 74 year old male who presents today for chronic left knee pain. He has history of knee osteoarthritis. He reports that while flying home on September 11, his knees became stiff, and he was unable to walk the following day. He was recently treated for a cold and prescribed prednisone, which improved his symptoms. He describes the pain as intermittent, with a severity of 3 out of 10. The pain is non-radiating, and he has no associated symptoms. He denies any recent injuries. His previous treatments include anti-inflammator ies and physical therapy, which has been helpful in the past. Significant PMHx: Hypertension ROS: Per patient questionnaire Physical Exam: General: Normal appearance. No acute distress. Inspection: No evidence of swelling, erythema, bruising or deformity. Palpation: Nontender to palpation. ROM: 0-140. Crepitus with ROM Gait: Nonantalgic gait. Special Test: Negative Abel, Negative Lachmann. No valgus or varus instability. Motor: 5/5 strength in all other planes. Sensation: Lower extremity sensation intact. Imaging: Xray reviewed. Bilateral knee osteoarthritis, more advanced in the left knee. Medial joint space narrowing (left > right). Subchondral sclerosis, especially medially. Mild varus alignment deformity. Assessment & Plan: We will continue with conservative management. He is not interested in surgery. PT ordered. He states its been years since he had PT for his knee, but believed it did help. Patient will take at home ibuprofen as needed for pain. Follow Up: As needed. If he fails PT and anti-inflammator ies next step would be a cortisone injection or gel shots. All questions were answered. Patient verbalized understanding of treatment plan jose Not available 09/24/2024 21:31:41 Plan of Treatment Reminders Order Date Submit Date Provider Last Modified By Organization Details Last Modified Time Details Appointments None recorded. Lab None recorded. Referral physical therapist referral - please contact pt to schedule apt for L knee. Thanks 2024 025 [email or web address] [facility] [place] [facility], [address], [place], [address], 23:54:52 Procedures None recorded. Surgeries None recorded. Imaging XR, knee [facility] [place], [address], [place], [address], 23:54:52 Medication Orders None recorded. Patient TargetsNo targets recorded. Patient InstructionsNo instructions recorded. Reason for Referral Physical Therapist Referral for Pain of left knee joint L knee pain please contact pt to schedule apt for L knee. Thanks Referring Physician: Lindsay Stephen, Orthopedic Surgery, Encounter Date: 09/24/2024 Results Created Date Observation Date Name Description Value Unit Range Abnormal Flag Note LastModifiedBy Organization Detail LastModifiedTime 09/24/19 25 XR, knee No observ ation record ed. jose [facility] [place] [address], [place], [address], 09/24/2024 21:31:17 Result Notes None recorded. Problems Name Problem SNOMED Code Status Onset Date Resolution Date Notes Provider Name and Address Organization Details Recorded Time Pain of left knee joint 9500423150720 07 Active 2024 KAMLESH Weeks - [facility] [employer] [facility] 15:00:33 Osteoarthri tis of left knee joint 8774649712051 09 Active 2024 Lindsay Stephen PA-C [address], [address], [place], [address], [employer] 21:24:07 Bilateral osteoarthri tis of knees 4274002287714 07 Active 2024 Lindsay Stephen PA-C [address], [address], [place], [address], [employer] 21:28:01 Problem Notes None recorded. Procedures Surgical History Date Name Laterality Status Provider Name and Address Organization Details Recorded Time excision of lipoma completed [employer] 09/24/2024 14:59:32 ethmoidotomy completed [employer] 09/24/2024 14:59:50 Imaging Results Imaging Date Name Status LastModified by Organiz ation Details LastModified Time 09/24/2024 XR, knee completed [facility] [place] [address], [place], [address], 09/24/2024 21:31:17 Procedure Notes None recorded. Medical Equipment None Reported. Allergies No known drug allergies Medications Name Sig Start Date Stop Date Status Note LastModified by Organization Details LastModified Time atorvastati n 10 mg tablet TAKE 1 TABLET BY MOUTH EVERY DAY AT BEDTIME active Not Available Not Available No t Available azithromyci n 250 mg tablet TAKE 2 TABLETS BY MOUTH FOR 1 DAY THEN TAKE 1 TABLET BY MOUTH DAILY FOR 4 DAYS 09/24 completed Not Available Not Available Not Available prednisone 20 mg tablet TAKE 1 TABLET BY MOUTH TWICE DAILY 09/24 completed Not Available Not Available Not Available ciprofloxac in 500 mg tablet TAKE 1 TABLET BY MOUTH EVERY 12 HOURS 09/24 completed Not Available Not Available Not Available amoxicillin 875 mg tablet TAKE 1 TABLET BY MOUTH TWICE DAILY 09/24 completed Not Available Not Available Not Available amlodipine 10 mg tablet TAKE 1 TABLET BY MOUTH DAILY active Not Available Not Available No t Available albuterol sulfate HFA 90 mcg/actuati on aerosol inhaler INHALE 2 PUFFS BY MOUTH EVERY 4 TO 6 HOURS NEEDED FOR SHORTNESS OF BREATH active Not Available Not Available No t Available fluticasone propionate 50 mcg/actuati on nasal spray,suspe nsion SHAKE LIQUID AND USE 2 SPRAYS IN EACH NOSTRIL DAILY active Not Available Not Available No t Available finasteride 5 mg tablet TAKE 1 TABLET BY MOUTH DAILY active Not Available Not Available No t Available Vitals Date Recorded Body height Body mass index (BMI) Body weight Provider Name and Address Organization Details Last Updated DateTime 09/24/2024 177.8 cm 25.3 kg/m2 67048.26 g Teena Velásquez [place] [facility] 09/24/2024 14:57:28 Social History None recorded. Functional Status None recorded. Mental Status None recorded. Family History Relationship Description Onset Age of this Age Resolved Age Notes LastModified by Organization Details LastModified Time Father Hypertensive disorder [email or web address] Not available 2024 14:59:01 Notes:CANCER: mother Medical History No medical history recorded. Past Encounters Encounter ID Performer Location Encounter Start Date Encounter Closed Date Diagnosis/Indication Diagnosis SNOMED-CT Code Diagnosis ICD10 Code Diagnosis Note [id number] Lindsay Stephen PA-C [facility] [place] [address] [place] [address] 09/24/2024 14:33:50 09/24/2024 15:33:38 Pain of left knee joint 9490304354 00864 M25.562 Bilateral osteoarthritis of knees 5090666386 78962 M17.0 Health Concerns Section Related Observation LastModified by Organization Detai ls LastModified Time None Recorded Concern Status LastModified by Organization Details LastModified Time None Recorded Advance Directives Directive None Recorded Payers Encounter Date Sequence Insurance Name Policy Number Policy Kunz Covered Member ID Kunz Member ID Guarantor Name 09/24/2024 1 [place] [employer] [id number] [employer] 09/24/2024 2 [place] [id number] [employer] [id number] [employer]
[2024-10-22 21:27] VITALS: BP 138/70; PULSE 71; RESP 16; O2SAT 97
== END 2024-10-22 21:29 | disposition left against medical advice (07) ==
PROVIDERS: Registered Nurse; Emergency Provider Physician Assistant; PCP Family Medicine
DX: R16.0 Hepatomegaly, not elsewhere classified (principal); K86.9 Disease of pancreas, unspecified; E80.6 Other disorders of bilirubin metabolism; E78.5 Hyperlipidemia, unspecified; I10 Essential (primary) hypertension; E55.9 Vitamin D deficiency, unspecified; J45.909 Unspecified asthma, uncomplicated
CPT/HCPCS: 36415; 71260; 74177; 80053; 81001; 83690; 84484; 85025; 85610; 85730; 93005; 99284; Q9967

== ENCOUNTER 2024-11-05 10:27 | Outpatient (CLI) | payer MEDICARE, SELFPAY ==
--- OUTSIDE RECORDS SUMMARY | 2024-11-05 10:41 | XMS_ITS ---
Author Organization [facility] Address [address] [place] [address] Care Team Providers Care Printing Equipment Mechanic Name Role Phone Nura Moore MD Primary Care Provider Carie Garcia FAMILY PARTNER Unavailable [phone] Active Problems Problem Noted Date Diagnosed Date Malignant neoplasm of pancre as, unspecified location of malignancy 10/24/2024 Elevated bilirubin 10/23/2024 Current Treatment and Therapy Plans No current plan information found. Past Treatment and Therapy Plans No past plan information found. Lifetime Dose Tracking * Chemical Lifetime Dose Automatic Entry Manual Entr y Fluoro Time 3.7 minutes 3.7 minutes 0 minutes Air kerma at the reference point (Ka,r) 132 mGy 1 32 mGy 0 mGy
--- OUTSIDE RECORDS SUMMARY | 2024-11-05 10:41 | XMS_ITS | Clinical Summary ---
Author Organization [facility] Address [address] [place] [address] Care Team Providers Care Electronics Repair Technician Name Role Phone Nura Moore MD Primary Care Provider Carie Garcia RESIDENTIAL HOUSEKEEPER Unavailable [phone] Allergies No known active allergies Medications amLODIPine (NORVASC) 5 mg tablet Take 2 tablets (10 mg total) by mouth daily Active atorvastatin (LIPITOR) 10 mg tablet Take 1 tablet (10 mg total) by mouth daily Active finasteride (PROSCAR) 5 mg tablet Take 1 tablet (5 mg total) by mouth daily Active fluticasone propionate (FLONASE) 50 mcg/actuation nasal spray Administer 1 spray into each nostril 2 (two) times a day Active cholecalciferol (VITAMIN D-3) 2000 unit tablet Take 0.5 tablets (1,000 Units total) by mouth daily Active abetfrla-boz-qh lic-vit K-lycop 400-20-370 mcg tablet Take 1 tablet by mouth daily Active glucosamine HCl 1,500 mg tablet Take 1,500 mg by mouth 2 (two) times a day Active potassium chloride ER (KLOR-CON) 20 mEq CR tablet Take 2 tablets (40 mEq total) by mouth every 4 (four) hours for 1 dose 2 tablet 10/30/19 25 Active Problems Problem Noted Date Diagnosed Date Malignant neoplasm of pancre as, unspecified location of malignancy 10/24/2024 Elevated bilirubin 10/23/2024 Encounters Date Type Department Care Team Description 10/30/2024 SHOP/CHAP Initial Outreach [facility] [address] [place] [address] Carie Garcia LCSW 10/30/2024 Telephone Oncology Edmond Crawford MD PhD 10/30/2024 Orders Only [facility] [address] [place] [address] Ese Butler MD Malignant neoplasm of pancreas, unspecified location of malignancy (HCC) (Primary Dx) 10/30/2024 Orders Only [facility] [address] [place] [address] [address] [place] [address] Ese Butler MD Malignant neoplasm of pancreas, unspecified location of malignancy (HCC) (Primary Dx) 10/30/2024 SHOP/CHAP Initial Eligibility Review [facility] [address] [place] [address] Carie Garcia LCSW 10/27/2024 1:50 PM TURBINE ROOM ATTENDANT Anesthesia Event [facility] [address] [place] [address] Nancy Sarkar MD 10/27/2024 12:30 PM TURBINE ROOM ATTENDANT - 10/27/2024 1:35 PM TURBINE ROOM ATTENDANT Surgery [facility] [address] [place] [address] Tres Olsen MD ESOPHAGOGASTRODUODENOSCOPY ULTRASOUND FINE NEEDLE ASPIRATION/BIOPSY [GI534] 10/24/2024 1:11 AM TURBINE ROOM ATTENDANT - 10/29/2024 1:57 PM TURBINE ROOM ATTENDANT Hospital Encounter [facility] [address] [place] [address] Matheus Mayfield MD Thomas, MD Siomara Daugherty, MD Lb Werner Safia, MD Malignant neoplasm of pancreas, unspecified location of malignancy (HCC) (Primary Dx); Elevated lipase; Elevated bilirubin; Elevated liver enzymes Discharge Disposition: Discharge to home or self care from Last 3 Months Surgical History Surgery Date Site/Laterality Comments OTHER SURGICAL HISTORY 09/17/1987 - 09/16/1988 per pt report - 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 No 10/30/2024 Humiliation, Afraid, Rape, and Kick questionnair e Answer Date Recorded Within the last year, have y ou been afraid of your partner or ex-partner? No 10/24/2024 Within the last year, have y ou been humiliated or emotionally abused in other ways by your partner or ex-partner? No Within the last year, have y ou been kicked, hit, slapped, or otherwise physically hurt by your partner or ex-partner? No 10/24/2024 Within the last year, have y ou been raped or forced to have any kind of sexual activity by your partner or ex-partner? No 10/24/2024 Social Connection and Isolat ion Panel [NHANES] Answer Date Recorded In a typical week, how many times do you talk on the phone with family, friends, or neighbors? More than three times a week 10/30/2024 How often do you get togethe r with friends or relatives? Three times a week 10/30/2024 How often do you attend chur ch or samaritan services? More than 4 times per year 10/30/2024 Do you belong to any clubs o r organizations such as zoroastrian groups, unions, fraternal or athletic groups, or school groups? Yes 10/30/2024 How often do you attend meet ings of the clubs or organizations you belong to? More than 4 times per year 10/30/2024 Are you , , di vorced, , never , or living with a partner? 10/30/2024 AUDIT-C Answer Date Recorded Q1: How often do you have a drink containing alcohol? Never 10/27/2024 Q2: How many drinks containi ng alcohol do you have on a typical day when you are drinking? Patient does not drink Q3: How often do you have si x or more drinks on one occasion? Never 10/27/2024 Overall Financial Resource Strain (CARDIA) Answe r Date Recorded How hard is it for you to pa y for the very basics like food, housing, medical care, and heating? Not hard at all 10/30/2024 [facility] Occupat ional Health - Occupational Stress Questionnaire Answer Date Recorded Do you feel stress - tense, restless, nervous, or anxious, or unable to sleep at night because your mind is troubled all the time - these days? Not at all 10/24/2024 Exercise Vital Sign Answer Date Recorde d On average, how many days pe r week do you engage in moderate to strenuous exercise (like a brisk walk)? 2 days 10/24/2024 On average, how many minutes do you engage in exercise at this level? 20 min 10/24/2024 Hunger Vital Sign Answer Date Recorded Within the past 12 months, y ou worried that your food would run out before you got the money to buy more. Never true 10/30/19 25 Within the past 12 months, t he food you bought just didn't last and you didn't have money to get more. Never true 10/30/2024 PRAPARE - Transportation Answer Date Re corded In the past 12 months, has l ack of transportation kept you from medical appointments or from getting medications? No 10/18 In the past 12 months, has l ack of transportation kept you from meetings, work, or from getting things needed for daily living? No 10/30/2024 Housing Stability Vital Sign Answer Howard e Recorded In the last 12 months, was t here a time when you were not able to pay the mortgage or rent on time? No 10/30/2024 In the past 12 months, how m any times have you moved where you were living? 0 10/30/2024 At any time in the past 12 m [facility], were you homeless or living in a snf (including now)? No 10/30/2024 Personal Safety Answer Date Recorded Have you ever been in or are you currently in a harmful physical or emotional relationship or is someone making you feel afraid or unsafe? Denies 10/23/2024 Sex and Gender Information Value Date Recorded Sex Assigned at Not on file Legal Sex Male 6:43 PM TURBINE ROOM ATTENDANT Gender Identity Not on file Sexual Orientation Not on file Obstetrics History Last Filed Vital Signs Vital Sign Reading Time Taken Comments Blood Pressure 111/62 10/29/2024 7:17 AM TURBINE ROOM ATTENDANT Pulse 86 10/29/2024 7:17 AM TURBINE ROOM ATTENDANT Temperature 36.7 C (98.1 F) 10/29/2024 7:18 AM TURBINE ROOM ATTENDANT Respiratory Rate 18 10/29/2024 7:17 AM TURBINE ROOM ATTENDANT Oxygen Saturation 95% 10/29/2024 7:17 AM TURBINE ROOM ATTENDANT Inhaled Oxygen Concentration - - Weight 76.1 kg (167 lb 12.3 oz) 10/29/2024 4:39 AM TURBINE ROOM ATTENDANT Height 177.8 cm (5' 10 ) 10/27/2024 12: 31 PM TURBINE ROOM ATTENDANT Body Mass Index 24.07 10/27/2024 12:31 PM TURBINE ROOM ATTENDANT Plan of Treatment Health Maintenance Due Date Last Done Comments Colon Cancer Screening-Colonoscopy 1950 Depression Screening 1950 Hepatitis C Screening 1950 Hepatitis B Screening 02/05/1968 Pneumococcal vaccine 65+ (1 of 2 - PCV) 1969 Well Visit 65+ 2015 Zoster Vaccine (2 of 3) 10/27/2018 09/01/2018 Influenza Vaccine (#1) 2024 DTaP/Tdap/Td Vaccine (2 - Td or Tdap) 07/28/202407/2014, 02/09/2004 Fall Risk Assessment 10/29/2025 10/29/2024 Goals Goal Patient Goal Type Associated Problems Recent Progress Patient-Stated? Author Patient will have kept initial appointment and will show signs of improvement to baseline Care Plan Initial Follow-Up Appointment Carie De Oliveira LCSW Note: 10/30 - Pt has a Primary Care appointment on 11/05. Patient will have plan for follow-up with recommended nurses medical assistants phlebotomists Care Plan Follow-Up with an Appropriate Specialist Needed Carie De Oliveira LCSW Note: 10/30 - Oncology Medical Devices Implanted Type Area Mail Rider Device Identifier Shelf Expiration Date Model / Serial / Lot Conmed Maulik Viabil 10mm X 6cm Shortwire [id number] - [id number] - [id number] Implanted:Qty: 1 on 10/27/2024 by Tres Olsen MD at [facility] N/A: Bile Duct Conmed Maulik 07/28/2027 [id number] / [id number] / Procedures Procedure Name Priority Date/Time Associated Diagnosis Comments EGFR Routine 10/29/2024 2:38 AM TURBINE ROOM ATTENDANT DIFFERENTIAL AUTO Routine 10/29/2024 2:38 AM TURBINE ROOM ATTENDANT COMPREHENSIVE METABOLIC PANEL Routine 2:38 AM TURBINE ROOM ATTENDANT CBC WITH AUTO DIFFERENTIAL Routine 10/29 2:38 AM TURBINE ROOM ATTENDANT MRI ABDOMEN LIVER W WO CONTRAST IP Routine 10/27/2024 10:21 PM TURBINE ROOM ATTENDANT EGFR Routine 10/27/2024 8:58 PM TURBINE ROOM ATTENDANT DIFFERENTIAL AUTO Routine 10/27/2024 8:58 PM TURBINE ROOM ATTENDANT COMPREHENSIVE METABOLIC PANEL Routine 8:58 PM TURBINE ROOM ATTENDANT CBC WITH AUTO DIFFERENTIAL Routine 10/27 8:58 PM TURBINE ROOM ATTENDANT ERCP IP Routine 10/27/2024 2:50 PM TURBINE ROOM ATTENDANT Malignant neoplasm of pancreas, unspecified location of malignancy (HCC) Elevated bilirubin US ENDOSCOPIC IP Routine 10/27/2024 2:50 PM TURBINE ROOM ATTENDANT Malignant neoplasm of pancreas, unspecified location of malignancy (HCC) Elevated bilirubin FL ERCP BILIARY DUCT IP Routine 10/27/2024 2:48 PM TURBINE ROOM ATTENDANT SURGICAL PATHOLOGY Routine 10/27/2024 2:08 PM TURBINE ROOM ATTENDANT Malignant neoplasm of pancreas, unspecified location of malignancy (HCC) Elevated bilirubin RAD S AND I BILIARY DUCTAL SYSTEM 10/27/2024 1:50 PM TURBINE ROOM ATTENDANT Malignant neoplasm of pancreas, unspecified location of malignancy (HCC) Elevated bilirubin ENDO ADD ON ESOPHAGOGASTRODUODENOSCOPY BIOPSY 10/27/2024 1:50 PM TURBINE ROOM ATTENDANT Malignant neoplasm of pancreas, unspecified location of malignancy (HCC) Elevated bilirubin UPPER EUS 10/27/2024 1:48 PM TURBINE ROOM ATTENDANT ERCP 10/27/2024 1:47 PM TURBINE ROOM ATTENDANT EGFR Routine 10/26/2024 8:11 PM TURBINE ROOM ATTENDANT DIFFERENTIAL AUTO Routine 10/26/2024 8:11 PM TURBINE ROOM ATTENDANT PROTIME-INR Timed 10/26/2024 8:11 PM TURBINE ROOM ATTENDANT COMPREHENSIVE METABOLIC PANEL Routine 8:11 PM TURBINE ROOM ATTENDANT CBC WITH AUTO DIFFERENTIAL Routine 10/26 8:11 PM TURBINE ROOM ATTENDANT EGFR Routine 10/25/2024 8:10 PM TURBINE ROOM ATTENDANT DIFFERENTIAL AUTO Routine 10/25/2024 8:10 PM TURBINE ROOM ATTENDANT COMPREHENSIVE METABOLIC PANEL Routine 8:10 PM TURBINE ROOM ATTENDANT CBC WITH AUTO DIFFERENTIAL Routine 10/25 8:10 PM TURBINE ROOM ATTENDANT HEPATIC FUNCTION PANEL Timed 8:59 AM TURBINE ROOM ATTENDANT CHROMOGRANIN A Timed 10/24/2024 8:59 AM TURBINE ROOM ATTENDANT LACTATE DEHYDROGENASE Timed 10/24/2024 8:59 AM TURBINE ROOM ATTENDANT CEA Timed 10/24/2024 8:59 AM TURBINE ROOM ATTENDANT CANCER ANTIGEN 19-9 Timed 10/24/2024 8:59 AM TURBINE ROOM ATTENDANT EGFR STAT 10/24/2024 2:26 AM TURBINE ROOM ATTENDANT BASIC METABOLIC PANEL STAT 10/24/2024 2:26 AM TURBINE ROOM ATTENDANT URINALYSIS, MICROSCOPIC ONLY STAT 03/2025 2:11 AM TURBINE ROOM ATTENDANT URINALYSIS AND REFLEX TO MICROSCOPIC STAT 10/24/2024 2:[address] BODY OUTSIDE CONSULT Routine 10/24/19 1:56 AM TURBINE ROOM ATTENDANT EGFR STAT 10/23/2024 9:55 PM TURBINE ROOM ATTENDANT BASIC METABOLIC PANEL STAT 10/23/2024 9:55 PM TURBINE ROOM ATTENDANT CRITICAL RESULT CALLBACK CHEMISTRY STAT 10/23/2024 9:55 PM TURBINE ROOM ATTENDANT DIFFERENTIAL AUTO STAT 10/23/2024 9:55 PM TURBINE ROOM ATTENDANT LIPASE STAT 10/23/2024 9:55 PM TURBINE ROOM ATTENDANT APTT STAT 10/23/2024 9:55 PM TURBINE ROOM ATTENDANT PROTIME-INR STAT 10/23/2024 9:55 PM TURBINE ROOM ATTENDANT HEPATIC FUNCTION PANEL STAT 9:55 PM TURBINE ROOM ATTENDANT CBC WITH AUTO DIFFERENTIAL STAT 10/23 9:55 PM TURBINE ROOM ATTENDANT from Last 3 Months Results * eGFR (10/29/2024 2:38 AM TURBINE ROOM ATTENDANT) eGFR 74 >=60 mL/min/1. 73 m2 Comment: Interpretive Data Reference Interval Normal >/= 90 mL/min/1.73m2 Mildly decreased* 60 - 89 mL/min/1.73m2 Mildly to moderately decreased 45 - 59 mL/min/1.73m2 Moderately to severely decreased 30 - 44 mL/min/1.73m2 Severely decreased 15 - 29 mL/min/1.73m2 Kidney Failure < 15 mL/min/1.73m2 *Relative to young adult level Estimated glomerular filtration rate is determined by the 2020 CKD-EPI equation recommended by the National Kidney Foundation (A Unifying Approach to GFR Estimation: Recommendations of the NKF-ASK Task Force on Reassessing the Inclusion of Race in Diagnosing Kidney Disease, JASN 2020). The CKD-EPI equation should not be used for patients with unstable renal function and has not been validated in children and those over 70. Current interpretive data was last reviewed 2021. Blood 10/29/2024 2:38 AM TURBINE ROOM ATTENDANT 10/29/2024 2:49 AM TURBINE ROOM ATTENDANT us Kiara Asher MD LAB BLOOD ORDERABLES Final Resul t [facility] [address] [facility] Department [place] [address] * (ABNORMAL) Differential, auto (10/29/2024 2:38 AM TURBINE ROOM ATTENDANT) Neutrophil abs 11.1(H) 1.5 - 6.5 K/cumm Imm gran abs 0.1 0.0 - 0.1 K/cumm [facility] Lymphocyte abs 0.7(L) 0.8 - 3.3 K/cumm [facility] Monocyte abs 0.9(H) 0.2 - 0.8 K/cumm [facility] Eosinophil abs 0.1 0.0 - 0.5 K/cumm [facility] Basophil abs 0.0 0.0 - 0.1 K/cumm [facility] Neutrophil pct 86.4 % [facility] Comment: Interpretive Data Percent cell count reference ranges are not reported, since discordance with absolute values may lead to misinterpretation of CBC data. Current Interpretive Data was last revised on 2017. Imm gran pct 0.7 % [facility] Comment: Interpretive Data Percent cell count reference ranges are not reported, since discordance with absolute values may lead to misinterpretation of CBC data. Current Interpretive Data was last revised on 2017. Lymphocyte pct 5.5 % [facility] Comment: Interpretive Data Percent cell count reference ranges are not reported, since discordance with absolute values may lead to misinterpretation of CBC data. Current Interpretive Data was last revised on 2017. Monocyte pct 6.7 % [facility] Comment: Interpretive Data Percent cell count reference ranges are not reported, since discordance with absolute values may lead to misinterpretation of CBC data. Current Interpretive Data was last revised on 2017. Eosinophil pct 0.5 % [facility] Comment: Interpretive Data Percent cell count reference ranges are not reported, since discordance with absolute values may lead to misinterpretation of CBC data. Current Interpretive Data was last revised on 2017. Basophil pct 0.2 % [facility] Comment: Interpretive Data Percent cell count reference ranges are not reported, since discordance with absolute values may lead to misinterpretation of CBC data. Current Interpretive Data was last revised on 2017. Blood 10/29/2024 2:38 AM TURBINE ROOM ATTENDANT 10/29/2024 2:50 AM TURBINE ROOM ATTENDANT us Kiara Asher MD LAB BLOOD ORDERABLES Final Resul t [facility] [address] [facility] Department [place] [address] * (ABNORMAL) CBC with auto differential (10/29/2024 2:38 AM TURBINE ROOM ATTENDANT) WBC 12.8(H) 3.8 - 9.9 K/cumm Hgb 12.4(L) 13.0 - 17.5 g/dL [facility] Hct 37.5(L) 38.9 - 50.3 % [facility] Plt 209 150 - 400 K/cumm [facility] MPV 10.2 9.1 - 12.3 fL [facility] RBC 4.16(L) 4.30 - 5.80 M/cumm [facility] MCV 90.1 81.3 - 96.4 fL [facility] MCH 29.8 27.1 - 33.3 pg [facility] MCHC 33.1 32.3 - 35.7 g/dL [facility] RDW CV 13.1 11.1 - 14.9 % [facility] RDW SD 43.3 35.7 - 48.1 fL [facility] NRBC abs 0.00 0.00 - 0.01 K/cumm [facility] Blood 10/29/2024 2:38 AM TURBINE ROOM ATTENDANT 10/29/2024 2:50 AM TURBINE ROOM ATTENDANT us Kiara Asher MD LAB BLOOD ORDERABLES Final Resul t [facility] [address] [facility] Department [place] [address] * (ABNORMAL) Comprehensive metabolic panel (10/29/2024 2:38 AM TURBINE ROOM ATTENDANT) Sodium 143 135 - 145 mmol/L Potassium, pl 2.9(L) 3.3 - 4.9 mmol/L [facility] Chloride 110 97 - 110 mmol/L [facility] CO2 21(L) 22 - 32 mmol/L [facility] Anion gap 12 2 - 15 mmol/L [facility] BUN 12 6 - 25 mg/dL [facility] Creatinine 1.06 0.80 - 1.30 mg/dL [facility] Glucose 134 70 - 199 mg/dL [facility] Comment: Interpretive Data Fasting glucose >/= 126 mg/dl is diagnostic for diabetes. Fasting is defined as no caloric intake for at least 8 hours. Fasting glucose between 100 mg/dl to 125 mg/dl is diagnostic of prediabetes. In a patient with classic symptoms of hyperglycemia or hyperglycemic crisis, a random glucose >/= 200 mg/dl is diagnostic for diabetes. In the absence of unequivocal hyperglycemia, results should be confirmed by repeat testing. The classification and Diagnosis of Diabetes Diabetes Care 2021; 46: S19-S40. Current interpretive data was last revised 2022. Calcium 7.0(L) 8.5 - 10.3 mg/dL [facility] Bilirubin, total 2.9(H) 0.1 - 1.2 mg/dL [facility] Protein, pl 5.9(L) 6.5 - 8.5 g/dL [facility] Albumin 3.0(L) 3.5 - 5.0 g/dL [facility] Alk phos 769(H) 40 - 130 Units/L [facility] ALT 511(H) 7 - 55 Units/L [facility] AST 253(H) 10 - 50 Units/L [facility] Blood 10/29/2024 2:38 AM TURBINE ROOM ATTENDANT 10/29/2024 2:49 AM TURBINE ROOM ATTENDANT us Kiara Asher MD LAB BLOOD ORDERABLES Final Resul t [facility] [address] [facility] Department [place] [address] * MRI Abdomen Liver W WO Contrast (10/27/2024 10:21 PM TURBINE ROOM ATTENDANT) Anatomical Region Laterality Modality Body N/A Magnetic Resonan ce 10/28/2024 9:21 AM TURBINE ROOM ATTENDANT Impressions 10/28/2024 10:14 AM TURBINE ROOM ATTENDANT 1. Hypoenhancing mass centered in the uncinate process of the pancreas, which abuts the superior mesenteric artery and vein, in keeping pancreatic adenocarcinoma. Slightly improved biliary duct dilatation status post stent placement. Borderline enlarged peripancreatic lymph node which is indeterminate. 2. Multiple hepatic cysts, without suspicious hepatic lesion. Dictated by: David Ybarra M.D. The radiology attending physician has personally reviewed this study, and had reviewed and/or edited this written report and agrees with it. Electronically signed by: Cameron Roman M.D. Narrative 10/28/2024 10:14 AM TURBINE ROOM ATTENDANT EXAMINATION: MAGNETIC RESONANCE IMAGING OF THE ABDOMEN WITH AND WITHOUT CONTRAST HISTORY: Pancreatic mass, liver lesions TECHNIQUE: Magnetic resonance imaging of the abdomen was performed prior to and following the uneventful administration of intravenous Gadolinium contrast. Protocol: Liver Dual Contrast Contrast: Gadoterate 14 mL; Eovist 7 mL COMPARISON: 10/22/2024 FINDINGS: Liver: No significant fat or iron deposition. No surface nodularity. - Bile ducts: Slight interval improvement in biliary ductal dilatation status post stent placement. The common bile duct measures up to 18 mm in diameter, previously 20 mm. There is moderate focal narrowing along the proximal aspect of the stent. Pneumobilia. - Focal liver lesions: Scattered hepatic cysts. No suspicious hepatic lesion identified. - Vasculature: Vascular involvement of the mass as detailed below. Portal and hepatic veins are patent. Conventional hepatic arterial anatomy. Gallbladder: Distended. Contains small amount of gas. Pancreas: Ill-defined mass centered in the uncinate process measures up to 4.4 x 3.3 cm (series 24, image 96). There is invasion of the second and third portions of the duodenum. There is a upstream dilatation of the main pancreatic duct up to 6 mm. There are also numerous associated dilated sidebranches. There is abutment of the superior mesenteric vein by the mass. There is apparent abutment of the superior mesenteric artery. Spleen: Normal Adrenals: Normal Kidneys: Tiny renal cysts. No hydronephrosis. Other Findings: Imaged lung bases are clear. Similar prominent peripancreatic lymph node measuring up to 10 mm (series 15, image 30).. No suspicious osseous lesion. Osseous hemangioma noted in the L1 vertebral body. Likely sebaceous cyst noted along the right flank. Procedure Note Cameron Roman MD - 10/28/2024 EXAMINATION: MAGNETIC RESONANCE IMAGING OF THE ABDOMEN WITH AND WITHOUT CONTRAST HISTORY: Pancreatic mass, liver lesions TECHNIQUE: Magnetic resonance imaging of the abdomen was performed prior to and following the uneventful administration of intravenous Gadolinium contrast. Protocol: Liver Dual Contrast Contrast: Gadoterate 14 mL; Eovist 7 mL COMPARISON: 10/22/2024 FINDINGS: Liver: No significant fat or iron deposition. No surface nodularity. - Bile ducts: Slight interval improvement in biliary ductal dilatation status post stent placement. The common bile duct measures up to 18 mm in diameter, previously 20 mm. There is moderate focal narrowing along the proximal aspect of the stent. Pneumobilia. - Focal liver lesions: Scattered hepatic cysts. No suspicious hepatic lesion identified. - Vasculature: Vascular involvement of the mass as detailed below. Portal and hepatic veins are patent. Conventional hepatic arterial anatomy. Gallbladder: Distended. Contains small amount of gas. Pancreas: Ill-defined mass centered in the uncinate process measures up to 4.4 x 3.3 cm (series 24, image 96). There is invasion of the second and third portions of the duodenum. There is a upstream dilatation of the main pancreatic duct up to 6 mm. There are also numerous associated dilated sidebranches. There is abutment of the superior mesenteric vein by the mass. There is apparent abutment of the superior mesenteric artery. Spleen: Normal Adrenals: Normal Kidneys: Tiny renal cysts. No hydronephrosis. Other Findings: Imaged lung bases are clear. Similar prominent peripancreatic lymph node measuring up to 10 mm (series 15, image 30).. No suspicious osseous lesion. Osseous hemangioma noted in the L1 vertebral body. Likely sebaceous cyst noted along the right flank. IMPRESSION: 1. Hypoenhancing mass centered in the uncinate process of the pancreas, which abuts the superior mesenteric artery and vein, in keeping pancreatic adenocarcinoma. Slightly improved biliary duct dilatation status post stent placement. Borderline enlarged peripancreatic lymph node which is indeterminate. 2. Multiple hepatic cysts, without suspicious hepatic lesion. Dictated by: David Ybarra M.D. The radiology attending physician has personally reviewed this study, and had reviewed and/or edited this written report and agrees with it. Electronically signed by: Cameron Roman M.D. Kiara Asher MD IMG MRI PROCEDURES Final Result * eGFR (10/27/2024 8:58 PM TURBINE ROOM ATTENDANT) eGFR 79 >=60 mL/min/1. 73 m2 Comment: Interpretive Data Reference Interval Normal >/= 90 mL/min/1.73m2 Mildly decreased* 60 - 89 mL/min/1.73m2 Mildly to moderately decreased 45 - 59 mL/min/1.73m2 Moderately to severely decreased 30 - 44 mL/min/1.73m2 Severely decreased 15 - 29 mL/min/1.73m2 Kidney Failure < 15 mL/min/1.73m2 *Relative to young adult level Estimated glomerular filtration rate is determined by the 2020 CKD-EPI equation recommended by the National Kidney Foundation (A Unifying Approach to GFR Estimation: Recommendations of the NKF-ASK Task Force on Reassessing the Inclusion of Race in Diagnosing Kidney Disease, JASN 2020). The CKD-EPI equation should not be used for patients with unstable renal function and has not been validated in children and those over 70. Current interpretive data was last reviewed 2021. Blood 10/27/2024 8:58 PM TURBINE ROOM ATTENDANT 10/27/2024 9:16 PM TURBINE ROOM ATTENDANT us Kiara Asher MD LAB BLOOD ORDERABLES Final Resul t [facility] Department [place] [address] * (ABNORMAL) Differential, auto (10/27/2024 8:58 PM TURBINE ROOM ATTENDANT) Neutrophil abs 7.6(H) 1.5 - 6.5 K/cumm Imm gran abs 0.0 0.0 - 0.1 K/cumm [facility] Lymphocyte abs 1.5 0.8 - 3.3 K/cumm [facility] Monocyte abs 1.0(H) 0.2 - 0.8 K/cumm [facility] Eosinophil abs 0.3 0.0 - 0.5 K/cumm [facility] Basophil abs 0.1 0.0 - 0.1 K/cumm [facility] Neutrophil pct 72.6 % [facility] Comment: Interpretive Data Percent cell count reference ranges are not reported, since discordance with absolute values may lead to misinterpretation of CBC data. Current Interpretive Data was last revised on 2017. Imm gran pct 0.3 % [facility] Comment: Interpretive Data Percent cell count reference ranges are not reported, since discordance with absolute values may lead to misinterpretation of CBC data. Current Interpretive Data was last revised on 2017. Lymphocyte pct 14.0 % [facility] Comment: Interpretive Data Percent cell count reference ranges are not reported, since discordance with absolute values may lead to misinterpretation of CBC data. Current Interpretive Data was last revised on 2017. Monocyte pct 10.0 % [facility] Comment: Interpretive Data Percent cell count reference ranges are not reported, since discordance with absolute values may lead to misinterpretation of CBC data. Current Interpretive Data was last revised on 2017. Eosinophil pct 2.6 % [facility] Comment: Interpretive Data Percent cell count reference ranges are not reported, since discordance with absolute values may lead to misinterpretation of CBC data. Current Interpretive Data was last revised on 2017. Basophil pct 0.5 % [facility] Comment: Interpretive Data Percent cell count reference ranges are not reported, since discordance with absolute values may lead to misinterpretation of CBC data. Current Interpretive Data was last revised on 2017. Blood 10/27/2024 8:58 PM TURBINE ROOM ATTENDANT 10/27/2024 9:16 PM TURBINE ROOM ATTENDANT Kiara Asher MD LAB BLOOD ORDERABLES Final Resul t Performing Organization Address City/[facility]/ZIP Co de Phone Number [facility] [place] [address] * (ABNORMAL) CBC with auto differential (10/27/2024 8:58 PM TURBINE ROOM ATTENDANT) WBC 10.4(H) 3.8 - 9.9 K/cumm Hgb 13.8 13.0 - 17.5 g/dL [facility] Hct 39.7 38.9 - 50.3 % [facility] Plt 301 150 - 400 K/cumm [facility] MPV 10.4 9.1 - 12.3 fL [facility] RBC 4.66 4.30 - 5.80 M/cumm [facility] MCV 85.2 81.3 - 96.4 fL [facility] MCH 29.6 27.1 - 33.3 pg [facility] MCHC 34.8 32.3 - 35.7 g/dL [facility] RDW CV 13.3 11.1 - 14.9 % [facility] RDW SD 41.0 35.7 - 48.1 fL [facility] NRBC abs 0.00 0.00 - 0.01 K/cumm [facility] Blood 10/27/2024 8:58 PM TURBINE ROOM ATTENDANT 10/27/2024 9:16 PM TURBINE ROOM ATTENDANT us Kiara Asher MD LAB BLOOD ORDERABLES Final Resul t [facility] Department [place] [employer] [address] * (ABNORMAL) Comprehensive metabolic panel (10/27/2024 8:58 PM TURBINE ROOM ATTENDANT) Sodium 141 135 - 145 mmol/L Potassium, pl 3.9 3.3 - 4.9 mmol/L [facility] Comment:Hemolyzed; Potassium value may be falsely elevated by as much as 0.3-0.5 mmol/L. Suggest redraw and reanalysis. Chloride 101 97 - 110 mmol/L [facility] CO2 28 22 - 32 mmol/L [facility] Anion gap 12 2 - 15 mmol/L [facility] BUN 11 6 - 25 mg/dL [facility] Creatinine 1.00 0.80 - 1.30 mg/dL [facility] Glucose 193 70 - 199 mg/dL [facility] Comment: Interpretive Data Fasting glucose >/= 126 mg/dl is diagnostic for diabetes. Fasting is defined as no caloric intake for at least 8 hours. Fasting glucose between 100 mg/dl to 125 mg/dl is diagnostic of prediabetes. In a patient with classic symptoms of hyperglycemia or hyperglycemic crisis, a random glucose >/= 200 mg/dl is diagnostic for diabetes. In the absence of unequivocal hyperglycemia, results should be confirmed by repeat testing. The classification and Diagnosis of Diabetes Diabetes Care 202; 46: S19-S40. Current interpretive data was last revised 2022. Calcium 8.9 8.5 - 10.3 mg/dL [facility] Bilirubin, total 4.3(H) 0.1 - 1.2 mg/dL [facility] Protein, pl 7.5 6.5 - 8.5 g/dL [facility] Albumin 4.0 3.5 - 5.0 g/dL [facility] Alk phos 920(H) 40 - 130 Units/L [facility] ALT 686(H) 7 - 55 Units/L [facility] AST 392(H) 10 - 50 Units/L [facility] Comment:Hemolyzed; result ma y be falsely elevated Blood 10/27/2024 8:58 PM TURBINE ROOM ATTENDANT 10/27/2024 9:16 PM TURBINE ROOM ATTENDANT us Kiara Asher MD LAB BLOOD ORDERABLES Final Resul t Performing Organization Address City/[facility]/ZIP Co de Phone Number [facility] Department [place] [address] * FL ERCP Biliary Duct (10/27/2024 2:48 PM TURBINE ROOM ATTENDANT) Narrative [facility] - 10/27/2024 2:48 PM TURBINE ROOM ATTENDANT The images from this study are not interpreted by Radiology. Please refer to the physician's procedure / OR operative note. us Tres Olsen MD IMG FLUOROSCOPY PROCEDURES Final Result Performing Organization Address [facility] Co de Phone Number [email or web address] * Surgical pathology (10/27/2024 2:08 PM TURBINE ROOM ATTENDANT) Tissue (Duodenum, Biopsy) 10/27/2024 2:08 PM TURBINE ROOM ATTENDANT Tissue (Pancreas, Biopsy) 10/27/2024 2:13 PM TURBINE ROOM ATTENDANT Narrative PATHOLOGY [facility] - 10/29/2024 5:06 PM TURBINE ROOM ATTENDANT EPIC results best viewed via link to PDF [facility] [place] [address] Note to Patients: This report may contain a detailed description of human tissue sent by a health care provider to the laboratory for pathologic evaluation. The content of this report is essential for diagnosis and may provide important critical findings. This information may be unfamiliar to patients to review without a medical professional present. It is advised that the patient review this report in the presence of a health care provider who can answer questions and explain the details. SURGICAL PATHOLOGY REPORT FINAL Patient Name: GRUPO BOLIVAR Gender: M : 1950 (Age: 74) Address: [address] [place] [id number] Hospital #: [id number] Taken:10/27/2024 Received:10/27/2024 Reported: 10/29/2024 Patient Type: [facility] Inpatient Service: Gastroenterology Location: [facility] Physician(s): Tres Olsen M.D. MD Ronnie Correa M.D. Diagnosis: A. Small intestine, duodenum, mass , biopsy: - Adenocarcinoma, with involvement of surface epithelium (see comment) B. Pancreas, head, mass , endoscopic ultrasound-guided fine needle biopsy: - Adenocarcinoma, moderately to poorly differentiated - See comment lixk/10/29/2024 17:06 By this signature, I attest that the above diagnosis is based upon my personal examination of the slides(and/or other material indicated in the diagnosis). Shaheen Mckeon M.D., Ph.D. Report Electronically Reviewed and Signed Out By Shaheen Mckeon M.D., Ph.D. 10/29/2024 17:06:11 Diagnosis Comment The duodenum mass biopsy (part A) shows fragments of duodenal mucosa involved by adenocarcinoma with similar cytologic features as the pancreatic head mass biopsy (part B). There are a few glands invading the lamina propria, but the majority of the neoplastic epithelium involves the surface epithelium, most likely representing cancerization from the underlying pancreatic mass. The pancreatic head mass fine needle biopsy shows multiple fragments of fibrous tissue involved by moderately to poorly differentiated adenocarcinoma. A few of the fragments show adenocarcinoma adjacent to ampullary glands; however, no background pancreatic parenchyma is identified in the biopsy. The imaging finding of a pancreatic head mass is noted; the findings could represent pancreatic adenocarcinoma with extension into the ampulla, although an ampullary/periampullary primary with extension to the pancreas cannot be excluded histologically. Radiologic and clinical correlation is recommended. This result was flagged as significant and was sent to Dr. Tres Olsen via email on 10/29/2024. Reason(s): To the best of our knowledge, this is the first diagnosis of this type of malignancy rendered for this patient. Microscopic Description and Comment: Microscopic examination substantiates the above cited diagnosis. Slides from this case were shown in intradepartmental consultation to Dr. Franky Robert, who agrees with the assessment. History: The patient is a 74-year-old man presenting for malignant neoplasm of pancreas, unspecified location malignancy elevated bilirubin. Operative procedure: Upper endoscopy ultrasound fine-needle aspiration/biopsy, endo add on upper endoscopy biopsy, endo ERCP with stent placement, and RAD S and I biliary ductal system. Specimen(s) Received: A: Duodenum mass bx B: Pancreas head mass FNB Gross Description: Received in two formalin jars labeled with the patient's identifiers. A. Labeled duodenum mass biopsy and consists of multiple forrest-pink fragment(s) of soft tissue with an aggregate measurement 0.8 by 0.5 x 0.1 cm. Labeled A1. Jar 0. B. Labeled pancreas head mass FNB are multiple cores and fragments of tissue admixed with hemorrhagic material (measuring 2.8 by 1.0 x 0.2 cm in aggregate). Labeled B1. Jar 0. elsw/10/27/2024 17:33 PA(s): Mavis Mason By this signature, I attest that the above diagnosis is based upon my personal examination of the slides(and/or other material). Addenda/Procedures The performance characteristics of some immunohistochemical stains, fluorescence in-situ hybridization tests and immunophenotyping by flow cytometry cited in this report (if any) were determined by the Surgical Pathology and Flow Cytometry Departments at [facility] as part of an ongoing advanced quality engineer program and in compliance with federally mandated regulations drawn from the Clinical Laboratory Improvement Act of 1988 (CLIA '88). Some of these tests rely on the use of analyte specific reagents and are subject to specific labeling requirements by the US Food and Drug Administration. Such diagnostic tests may only be performed in a facility that is certified by the Department of Health and Human Services as a high complexity laboratory under CLIA '88. The FDA has determined that such clearance or approval is not necessary. This test is used for clinical purposes. It should not be regarded as investigational or for research. Nevertheless, federal rules concerning the medical use of analyte specific reagents require that the following disclaimer be attached to the report: This test was developed and its performance characteristics determined by the Surgical Pathology and Flow Cytometry Departments of [facility]. It has not been cleared or approved by the U. S. Food and Drug Administration. IMAGES AND SCANNED DOCUMENTS, IF INCLUDED, ONLY VIEWABLE IN PDF VERSION OF REPORT us Tres Olsen MD LAB PATHOLOGY ORDERABLES Fi nal Result PATHOLOGY [facility] 3rd Floor [place], [place] [phone] * Upper EUS (10/27/2024 1:48 PM TURBINE ROOM ATTENDANT) Anatomical Region Laterality Modality Other Narrative Procedure Note Tres Olsen MD - 10/27/2024 1:48 PM CST [facility] Patient Name: Grupo Bolivar Procedure Date: 10/27/2024 1:48 PM Date of : 1950 Admit Type: Inpatient Age: 74 Gender: Male Attending MD: Tres Olsen M.D. Room: [facility] ENDOSCOPY ROOM 2 Note Status: Finalized Procedure: Upper EUS Indications: Suspected mass in pancreas on CT scan Referring MD: Ronnie Stringer M.D. Providers: Tres Olsen M.D. Comorbidities See the other procedure note for documentation of comorbidities Medicines: Monitored Anesthesia Care Complications: No immediate complications. Estimated Blood Loss: Estimated blood loss was minimal. Procedure: Pre-Anesthesia Assessment: - Prior to the procedure, a History and Physicalwas performed, and patient medications, allergies and sensitivities were reviewed. The patient'stolerance of previous anesthesia was reviewed. - Immediately prior to administration ofmedications, the patient was re-assessed for adequacy to receive sedatives. The risks, benefits and alternatives were discussed and informed consent was obtained.The wasintroduced through the mouth, and advanced to the second partof duodenum The GIF [id number] endoscope was introduced through the mouth, and advanced to the second part of duodenum The upper EUS wasaccomplished without difficulty. The patient tolerated the procedure well. Findings: ENDOSCOPIC FINDING: : The examined esophagus was endoscopically normal. The entire examined stomach was endoscopically normal. At the level of the ampulla and immediately post-ampulla, evidence of infiltrative mass with stigmata of recent bleeding was found in the second portion of the duodenum. Biopsies were taken with a coldforceps for histology. The upper endoscope could not traverse ENDOSONOGRAPHIC FINDING: : The esophagus, stomach and duodenum were visualizedendosonographically. An irregular mass was identified in the pancreatic head. The mass was anechoic. The mass measured 30 mm by 28 mm in maximal cross-sectional diameter. The endosonographic borders were poorly-defined. An intact interface was seen between the mass and the second portion ofduodenum and region of major papilla suggesting a lack of invasion. Theremainder of the pancreas was examined. The endosonographic appearance of parenchyma and the upstream pancreatic duct indicated duct dilationand a maximum duct diameter of 5 mm. Fine needle biopsy was performed.Color Doppler imaging was utilized prior to needle puncture to confirm alack of significant vascular structures within the needle path. Threepasses were made with the 22 gauge Acquire biopsy needle using atransduodenal approach. A visible core of tissue was obtained. Final cytologyresults are pending. There was dilation in the common bile duct which measured up to 11 mm with abrupt cut off at the level of the pancreas head mass. There was no sign of significant endosonographic abnormality in the visualized portion of the liver. Impression: - Evidence of likely duodenal invasion ofpancreatic head mass distorting area of ampulla andpost-ampulla, biopsied. The upper endoscope could not traversethis area. - An irregular ~3 cm mass was identified in the pancreatic head. Fine needle biopsy performed. - There was dilation in the common bile duct which measured up to 11 mm with abrupt cut off at thelevel of the pancreas head mass. - There was no evidence of significant pathology in the visualized portion of the liver. Recommendation: - Await pathology results. - Monitor for outlet obstruction symptoms. - Proceed with ERCP. Attending Participation: I personally performed the entire procedure. Electronically signed by Tres Olsen MD Tres Olsen M.D. 10/27/2024 3:08:24 PM . Number of Addenda: 0 Note Initiated On: 10/27/2024 1:48 PM us Tres Olsen MD ENDOSCOPY PROCEDURES Final Result * ERCP (10/27/2024 1:47 PM TURBINE ROOM ATTENDANT) Anatomical Region Laterality Modality Other Narrative Procedure Note Tres Olsen MD - 10/27/2024 1:47 PM CST [facility] Patient Name: Grupo Bolivar Procedure Date: 10/27/2024 1:47 PM Date of : 1950 Admit Type: Inpatient Age: 74 Gender: Male Attending MD: Tres Olsen M.D. 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 Providers: Tres Olsen M.D. Comorbidities See the other procedure note for documentation of comorbidities Medicines: Monitored Anesthesia Care Complications: No immediate complications. Estimated Blood Loss: Estimated blood loss: none. Procedure: Pre-Anesthesia Assessment: - Prior to the procedure, a History and Physicalwas performed, and patient medications, allergies and sensitivities were reviewed. The patient'stolerance of previous anesthesia was reviewed. - Immediately prior to administration ofmedications, the patient was re-assessed for adequacy to receive sedatives. The benefits, risks, and alternatives to theprocedure and sedation were discussed and informed consentwas obtained. The [id number] Duodenoscope wasintroduced through the mouth, and used to inject contrast into and used to inject contrast into the bile duct. The ERCP was technically difficult and complex due to challenging cannulation. Findings: A biliary stent was visible on the bilingual sales consultant film. The esophagus was successfully intubated under direct vision. The scope was advanced to the major papilla in the descending duodenum without detailed examination of the pharynx, larynx and associated structures, andupper GI tract. The upper GI tract was grossly normal. Evidence of tumor infiltration resulting in distortion and friability of ampullaryarea. With great difficulty, a 0.025 inch x 450 cm angled Visiglide wirewas passed into the biliary tree. The CleverCut [id number] was passed over the guidewire and the bile duct was then deeply cannulated. Contrast was injected. I personally interpreted the bile duct images. Ductal flow of contrast was adequate. Image quality was adequate. Contrast extended to the hepatic ducts. The lower third ofthe main bile duct contained a single severe stenosis 10 mm in lengthwith associated upstream dilatation of the main bile duct to 12 mm. Given distorted anatomy, biliary sphincterotomy was deferred. Instead, one10 mm by 6 cm covered metal stent was placed into the common bile duct. Copious amounts of dark bile flowed through the stent. The stent wasin good position. The endoscope was withdrawn from the patient. Impression: - Ampullary distortion from duodenal invasion from underlying pancreatic process making cannulation difficult. - A single severe biliary stricture was found inthe lower third of the main bile duct. The stricturewas malignant appearing. There was upstream dilatationof the main bile duct noted. - Given distorted anatomy and significantfriability, sphincterotomy was deferred. Instead, one covered metal stent was placed into the common bile duct. Recommendation: - Return patient to floor for ongoing care. - Observe patient's clinical course followingtoday's procedure with therapeutic intervention. - Avoid aspirin and nonsteroidal anti-inflammatory medicines for 2 weeks. - Watch for pancreatitis, bleeding, perforation,and cholangitis. - Continue trending liver enzymes. Attending Participation: I personally performed the entire procedure. Electronically signed by Tres Olsen MD Tres Olsen M.D. 10/27/2024 3:26:39 PM . Number of Addenda: 0 Note Initiated On: 10/27/2024 1:47 PM us Tres Olsen MD ENDOSCOPY PROCEDURES Final Result * eGFR (10/26/2024 8:11 PM TURBINE ROOM ATTENDANT) eGFR 83 >=60 mL/min/1. 73 m2 Comment: Interpretive Data Reference Interval Normal >/= 90 mL/min/1.73m2 Mildly decreased* 60 - 89 mL/min/1.73m2 Mildly to moderately decreased 45 - 59 mL/min/1.73m2 Moderately to severely decreased 30 - 44 mL/min/1.73m2 Severely decreased 15 - 29 mL/min/1.73m2 Kidney Failure < 15 mL/min/1.73m2 *Relative to young adult level Estimated glomerular filtration rate is determined by the 2020 CKD-EPI equation recommended by the National Kidney Foundation (A Unifying Approach to GFR Estimation: Recommendations of the NKF-ASK Task Force on Reassessing the Inclusion of Race in Diagnosing Kidney Disease, JASN 2020). The CKD-EPI equation should not be used for patients with unstable renal function and has not been validated in children and those over 70. Current interpretive data was last reviewed 2021. Blood 10/26/2024 8:11 PM TURBINE ROOM ATTENDANT 10/26/2024 8:24 PM TURBINE ROOM ATTENDANT us Kiara Asher MD LAB BLOOD ORDERABLES Final Resul t [facility] Department [place] [address] * Differential, auto (10/26/2024 8:11 PM TURBINE ROOM ATTENDANT) Neutrophil abs 5.8 1.5 - 6.5 K/cumm Imm gran abs 0.0 0.0 - 0.1 K/cumm [facility] Lymphocyte abs 1.8 0.8 - 3.3 K/cumm [facility] Monocyte abs 0.8 0.2 - 0.8 K/cumm [facility] Eosinophil abs 0.5 0.0 - 0.5 K/cumm [facility] Basophil abs 0.1 0.0 - 0.1 K/cumm [facility] Neutrophil pct 64.7 % [facility] Comment: Interpretive Data Percent cell count reference ranges are not reported, since discordance with absolute values may lead to misinterpretation of CBC data. Current Interpretive Data was last revised on 2017. Imm gran pct 0.3 % [facility] Comment: Interpretive Data Percent cell count reference ranges are not reported, since discordance with absolute values may lead to misinterpretation of CBC data. Current Interpretive Data was last revised on 2017. Lymphocyte pct 19.7 % [facility] Comment: Interpretive Data Percent cell count reference ranges are not reported, since discordance with absolute values may lead to misinterpretation of CBC data. Current Interpretive Data was last revised on 2017. Monocyte pct 9.3 % [facility] Comment: Interpretive Data Percent cell count reference ranges are not reported, since discordance with absolute values may lead to misinterpretation of CBC data. Current Interpretive Data was last revised on 2017. Eosinophil pct 5.2 % [facility] Comment: Interpretive Data Percent cell count reference ranges are not reported, since discordance with absolute values may lead to misinterpretation of CBC data. Current Interpretive Data was last revised on 2017. Basophil pct 0.8 % [facility] Comment: Interpretive Data Percent cell count reference ranges are not reported, since discordance with absolute values may lead to misinterpretation of CBC data. Current Interpretive Data was last revised on 2017. Blood 10/26/2024 8:11 PM TURBINE ROOM ATTENDANT 10/26/2024 8:25 PM TURBINE ROOM ATTENDANT Kiara Asher MD LAB BLOOD ORDERABLES Final Resul t Performing Organization Address City/[facility]/ZIP Co de Phone Number [facility] Department [place] [address] * (ABNORMAL) CBC with auto differential (10/26/2024 8:11 PM TURBINE ROOM ATTENDANT) WBC 8.9 3.8 - 9.9 K/cumm Hgb 13.0 13.0 - 17.5 g/dL [facility] Hct 38.7(L) 38.9 - 50.3 % [facility] Plt 284 150 - 400 K/cumm [facility] MPV 10.3 9.1 - 12.3 fL [facility] RBC 4.39 4.30 - 5.80 M/cumm [facility] MCV 88.2 81.3 - 96.4 fL [facility] MCH 29.6 27.1 - 33.3 pg [facility] MCHC 33.6 32.3 - 35.7 g/dL [facility] RDW CV 13.2 11.1 - 14.9 % [facility] RDW SD 42.7 35.7 - 48.1 fL [facility] NRBC abs 0.00 0.00 - 0.01 K/cumm [facility] Blood 10/26/2024 8:11 PM TURBINE ROOM ATTENDANT 10/26/2024 8:25 PM TURBINE ROOM ATTENDANT Kiara Asher MD LAB BLOOD ORDERABLES Final Resul t [facility] Department [place] [address] * (ABNORMAL) Protime-INR (10/26/2024 8:11 PM TURBINE ROOM ATTENDANT) PT 13.9(H) 9.7 - 13.0 sec INR 1.28(H) 0.90 - 1.20 [facility] Comment: Interpretive data Oral anticoagulant therapeutic ranges: Venous thromboembolism prophylaxis or treatment: 2.0-3.0 CARDIOLOGY Standard range: 2.0-3.0 High-intensity range: 2.5-3.5 Refer to indication-specific guidelines for appropriate target ranges for prosthetic heart valve replacement. Current interpretive data was last revised on 2019. Blood 10/26/2024 8:11 PM TURBINE ROOM ATTENDANT 10/26/2024 8:33 PM TURBINE ROOM ATTENDANT Kiara Asher MD LAB BLOOD ORDERABLES Final Resul t Performing Organization Address [facility] de Phone Number [facility] Department [place] [address] * (ABNORMAL) Comprehensive metabolic panel (10/26/2024 8:11 PM TURBINE ROOM ATTENDANT) Pathologist [facility] Sodium 141 135 - 145 mmol/L Potassium, pl 3.8 3.3 - 4.9 mmol/L [facility] Chloride 105 97 - 110 mmol/L [facility] CO2 26 22 - 32 mmol/L [facility] Anion gap 10 2 - 15 mmol/L [facility] BUN 13 6 - 25 mg/dL [facility] Creatinine 0.96 0.80 - 1.30 mg/dL [facility] Glucose 166 70 - 199 mg/dL [facility] Comment: Interpretive Data Fasting glucose >/= 126 mg/dl is diagnostic for diabetes. Fasting is defined as no caloric intake for at least 8 hours. Fasting glucose between 100 mg/dl to 125 mg/dl is diagnostic of prediabetes. In a patient with classic symptoms of hyperglycemia or hyperglycemic crisis, a random glucose >/= 200 mg/dl is diagnostic for diabetes. In the absence of unequivocal hyperglycemia, results should be confirmed by repeat testing. The classification and Diagnosis of Diabetes Diabetes Care 2021; 46: S19-S40. Current interpretive data was last revised 2022. Calcium 9.0 8.5 - 10.3 mg/dL [facility] Bilirubin, total 5.7(H) 0.1 - 1.2 mg/dL [facility] Protein, pl 7.2 6.5 - 8.5 g/dL [facility] Albumin 3.8 3.5 - 5.0 g/dL [facility] Alk phos 841(H) 40 - 130 Units/L [facility] ALT 691(H) 7 - 55 Units/L [facility] AST 404(H) 10 - 50 Units/L [facility] Blood 10/26/2024 8:11 PM TURBINE ROOM ATTENDANT 10/26/2024 8:24 PM TURBINE ROOM ATTENDANT us Kiara Asher MD LAB BLOOD ORDERABLES Final Resul t [facility] Department [place] [address] * eGFR (10/25/2024 8:10 PM TURBINE ROOM ATTENDANT) eGFR 74 >=60 mL/min/1. 73 m2 Comment: Interpretive Data Reference Interval Normal >/= 90 mL/min/1.73m2 Mildly decreased* 60 - 89 mL/min/1.73m2 Mildly to moderately decreased 45 - 59 mL/min/1.73m2 Moderately to severely decreased 30 - 44 mL/min/1.73m2 Severely decreased 15 - 29 mL/min/1.73m2 Kidney Failure < 15 mL/min/1.73m2 *Relative to young adult level Estimated glomerular filtration rate is determined by the 2020 CKD-EPI equation recommended by the National Kidney Foundation (A Unifying Approach to GFR Estimation: Recommendations of the NKF-ASK Task Force on Reassessing the Inclusion of Race in Diagnosing Kidney Disease, JASN 2020). The CKD-EPI equation should not be used for patients with unstable renal function and has not been validated in children and those over 70. Current interpretive data was last reviewed 2021. Blood 10/25/2024 8:10 PM TURBINE ROOM ATTENDANT 10/25/2024 8:24 PM TURBINE ROOM ATTENDANT us Kiara Asher MD LAB BLOOD ORDERABLES Final Resul t [facility] Department [place] [address] * Differential, auto (10/25/2024 8:10 PM TURBINE ROOM ATTENDANT) Neutrophil abs 5.6 1.5 - 6.5 K/cumm Imm gran abs 0.0 0.0 - 0.1 K/cumm [facility] Lymphocyte abs 1.7 0.8 - 3.3 K/cumm [facility] Monocyte abs 0.8 0.2 - 0.8 K/cumm [facility] Eosinophil abs 0.2 0.0 - 0.5 K/cumm [facility] Basophil abs 0.1 0.0 - 0.1 K/cumm [facility] Neutrophil pct 66.4 % [facility] Comment: Interpretive Data Percent cell count reference ranges are not reported, since discordance with absolute values may lead to misinterpretation of CBC data. Current Interpretive Data was last revised on 2017. Imm gran pct 0.4 % [facility] Comment: Interpretive Data Percent cell count reference ranges are not reported, since discordance with absolute values may lead to misinterpretation of CBC data. Current Interpretive Data was last revised on 2017. Lymphocyte pct 19.7 % [facility] Comment: Interpretive Data Percent cell count reference ranges are not reported, since discordance with absolute values may lead to misinterpretation of CBC data. Current Interpretive Data was last revised on 2017. Monocyte pct 10.0 % [facility] Comment: Interpretive Data Percent cell count reference ranges are not reported, since discordance with absolute values may lead to misinterpretation of CBC data. Current Interpretive Data was last revised on 2017. Eosinophil pct 2.7 % [facility] Comment: Interpretive Data Percent cell count reference ranges are not reported, since discordance with absolute values may lead to misinterpretation of CBC data. Current Interpretive Data was last revised on 2017. Basophil pct 0.8 % [facility] Comment: Interpretive Data Percent cell count reference ranges are not reported, since discordance with absolute values may lead to misinterpretation of CBC data. Current Interpretive Data was last revised on 2017. Blood 10/25/2024 8:10 PM TURBINE ROOM ATTENDANT 10/25/2024 8:24 PM TURBINE ROOM ATTENDANT Kiara Asher MD LAB BLOOD ORDERABLES Final Resul t Performing Organization Address City/[facility] Co de Phone Number [facility] Department [place] [address] * CBC with auto differential (10/25/2024 8:10 PM TURBINE ROOM ATTENDANT) WBC 8.4 3.8 - 9.9 K/cumm Hgb 13.2 13.0 - 17.5 g/dL [facility] Hct 40.1 38.9 - 50.3 % [facility] Plt 288 150 - 400 K/cumm [facility] MPV 10.1 9.1 - 12.3 fL [facility] RBC 4.60 4.30 - 5.80 M/cumm [facility] MCV 87.2 81.3 - 96.4 fL [facility] MCH 28.7 27.1 - 33.3 pg [facility] MCHC 32.9 32.3 - 35.7 g/dL [facility] RDW CV 13.3 11.1 - 14.9 % [facility] RDW SD 42.2 35.7 - 48.1 fL [facility] NRBC abs 0.00 0.00 - 0.01 K/cumm [facility] Blood 10/25/2024 8:10 PM TURBINE ROOM ATTENDANT 10/25/2024 8:24 PM TURBINE ROOM ATTENDANT Kiara Asher MD LAB BLOOD ORDERABLES Final Resul t Performing Organization Address City/[facility]/ZIP Co de Phone Number [facility] Department [place] [address] * (ABNORMAL) Comprehensive metabolic panel (10/25/2024 8:10 PM TURBINE ROOM ATTENDANT) Sodium 139 135 - 145 mmol/L Potassium, pl 3.8 3.3 - 4.9 mmol/L [facility] Chloride 103 97 - 110 mmol/L [facility] CO2 28 22 - 32 mmol/L [facility] Anion gap 8 2 - 15 mmol/L [facility] BUN 11 6 - 25 mg/dL [facility] Creatinine 1.06 0.80 - 1.30 mg/dL [facility] Glucose 170 70 - 199 mg/dL [facility] Comment: Interpretive Data Fasting glucose >/= 126 mg/dl is diagnostic for diabetes. Fasting is defined as no caloric intake for at least 8 hours. Fasting glucose between 100 mg/dl to 125 mg/dl is diagnostic of prediabetes. In a patient with classic symptoms of hyperglycemia or hyperglycemic crisis, a random glucose >/= 200 mg/dl is diagnostic for diabetes. In the absence of unequivocal hyperglycemia, results should be confirmed by repeat testing. The classification and Diagnosis of Diabetes Diabetes Care 202; 46: S19-S40. Current interpretive data was last revised 2022. Calcium 9.2 8.5 - 10.3 mg/dL [facility] Bilirubin, total 5.6(H) 0.1 - 1.2 mg/dL [facility] Protein, pl 7.3 6.5 - 8.5 g/dL [facility] Albumin 3.8 3.5 - 5.0 g/dL [facility] Alk phos 810(H) 40 - 130 Units/L [facility] ALT 701(H) 7 - 55 Units/L [facility] AST 451(H) 10 - 50 Units/L [facility] Blood 10/25/2024 8:10 PM TURBINE ROOM ATTENDANT 10/25/2024 8:24 PM TURBINE ROOM ATTENDANT us Kiara Asher MD LAB BLOOD ORDERABLES Final Resul t [facility] Department [place] [address] * Chromogranin A (10/24/2024 8:59 AM TURBINE ROOM ATTENDANT) Chromogranin A 46 <93 ng/mL [facility] Comment: ADDITIONAL INFORMATION The testing method is a homogeneous time-resolved immunofluorescent assay manufactured by [employer] and performed on the [employer] Compact Plus. Values obtained with different assay methods or kits may be different and cannot be used interchangeably. Test results cannot be interpreted as absolute evidence for the presence or absence of malignant disease. In some immunoassays, the presence of unusually high concentrations of analyte may result in a high-dose hook effect. This may result in a lower or even normal measured analyte concentration. If the reported result is inconsistent with the clinical presentation, the laboratory should be alerted for troubleshooting. For diagnostic purposes, these immunoassay results should always be assessed in conjunction with the patients medical history, clinical examination and other findings. Test Performed by: [id number] [place] [address] Check Processing Clerk: Hi De Los Santos Ph.D.; CLIA# [id number] Blood 10/24/2024 8:59 AM TURBINE ROOM ATTENDANT 10/24/2024 9:53 AM TURBINE ROOM ATTENDANT Dewayne Hernandez MD LAB BLOOD ORDERABLES Shannan apple Result Performing Organization Address City/State/[facility] Co de Phone Number [facility] Department [place] [address] [facility] * (ABNORMAL) Cancer antigen 19-9 (10/24/2024 8:59 AM TURBINE ROOM ATTENDANT) CA 19-9 ag 719.0(H) <=35.0 units/mL Comment: Interpretive Data The [place] CA 19-9 assay procedure was used. Results from different manufacturers or methods may not be comparable. Serial testing should be performed using the same method. Blood 10/24/2024 8:59 AM TURBINE ROOM ATTENDANT 10/24/2024 9:23 AM TURBINE ROOM ATTENDANT Result [facility] Dewayne Hernandez MD LAB BLOOD ORDERABLES Shannan l Result Performing Organization Address [facility] de Phone Number [facility] [place] [address] * (ABNORMAL) Lactate dehydrogenase (LD) (10/24/2024 8:59 AM TURBINE ROOM ATTENDANT) Lactate dehydrogenase (LDH) 272(H) 100 - 250 Units/L Blood 10/24/2024 8:59 AM TURBINE ROOM ATTENDANT 10/24/2024 9:23 AM TURBINE ROOM ATTENDANT Result [facility] Dewayne Hernandez MD LAB BLOOD ORDERABLES Shannan l Result Performing Organization Address [facility] [place] [address] * CEA (10/24/2024 8:59 AM TURBINE ROOM ATTENDANT) CEA 2.4 <=5.0 ng/mL Comment: Interpretive Data: Reference Range: Non-Smokers: 0.0 5.0 ng/mL Smokers: 0.0 6.5 ng/mL The [place] CEA assay procedure was used. Results from different manufacturers or methods may not be comparable. Serial testing should be performed using the same method. Current interpretive data was last revised 2022. Blood 10/24/2024 8:59 AM TURBINE ROOM ATTENDANT 10/24/2024 9:23 AM TURBINE ROOM ATTENDANT Result [facility] Dewayne Hernandez MD LAB BLOOD ORDERABLES Shannan l Result Performing Organization Address [facility] de Phone Number [facility] [place] [address] * (ABNORMAL) Hepatic function panel (10/24/2024 8:59 AM TURBINE ROOM ATTENDANT) Bilirubin, total 5.4(H) 0.1 - 1.2 mg/dL Bilirubin, direct 3.9(H) 0.1 - 0.3 mg/dL [facility] Protein, pl 7.0 6.5 - 8.5 g/dL [facility] Albumin 3.8 3.5 - 5.0 g/dL [facility] Alk phos 828(H) 40 - 130 Units/L [facility] ALT 566(H) 7 - 55 Units/L [facility] AST 387(H) 10 - 50 Units/L [facility] Blood 10/24/2024 8:59 AM TURBINE ROOM ATTENDANT 10/24/2024 9:23 AM TURBINE ROOM ATTENDANT Kiara Asher MD LAB BLOOD ORDERABLES Final Resul t [facility] Department [place] [address] * eGFR (10/24/2024 2:26 AM TURBINE ROOM ATTENDANT) eGFR >90 >=60 mL/min/1. 73 m2 Comment: Interpretive Data Reference Interval Normal >/= 90 mL/min/1.73m2 Mildly decreased* 60 - 89 mL/min/1.73m2 Mildly to moderately decreased 45 - 59 mL/min/1.73m2 Moderately to severely decreased 30 - 44 mL/min/1.73m2 Severely decreased 15 - 29 mL/min/1.73m2 Kidney Failure < 15 mL/min/1.73m2 *Relative to young adult level Estimated glomerular filtration rate is determined by the 2020 CKD-EPI equation recommended by the National Kidney Foundation (A Unifying Approach to GFR Estimation: Recommendations of the NKF-ASK Task Force on Reassessing the Inclusion of Race in Diagnosing Kidney Disease, JASN 202). The CKD-EPI equation should not be used for patients with unstable renal function and has not been validated in children and those over 70. Current interpretive data was last reviewed 2021. Blood 10/24/2024 2:26 AM TURBINE ROOM ATTENDANT 10/24/2024 2:43 AM TURBINE ROOM ATTENDANT us Leslie Pena MD LAB BLOOD ORDERABLES Fin al Result Performing Organization Address City/[facility]/ZIP Co de Phone Number [facility] [place] [address] * (ABNORMAL) Basic metabolic panel (10/24/2024 2:26 AM TURBINE ROOM ATTENDANT) Sodium 139 135 - 145 mmol/L Potassium, pl 3.2(L) 3.3 - 4.9 mmol/L [facility] Chloride 103 97 - 110 mmol/L [facility] CO2 27 22 - 32 mmol/L [facility] Anion gap 9 2 - 15 mmol/L [facility] BUN 9 6 - 25 mg/dL [facility] Creatinine 0.86 0.80 - 1.30 mg/dL [facility] Glucose 124 70 - 199 mg/dL [facility] Comment: Interpretive Data Fasting glucose >/= 126 mg/dl is diagnostic for diabetes. Fasting is defined as no caloric intake for at least 8 hours. Fasting glucose between 100 mg/dl to 125 mg/dl is diagnostic of prediabetes. In a patient with classic symptoms of hyperglycemia or hyperglycemic crisis, a random glucose >/= 200 mg/dl is diagnostic for diabetes. In the absence of unequivocal hyperglycemia, results should be confirmed by repeat testing. The classification and Diagnosis of Diabetes Diabetes Care 202; 46: S19-S40. Current interpretive data was last revised 2022. Calcium 9.0 8.5 - 10.3 mg/dL [facility] Blood 10/24/2024 2:26 AM TURBINE ROOM ATTENDANT 10/24/2024 2:43 AM TURBINE ROOM ATTENDANT Leslie Pena MD LAB BLOOD ORDERABLES Fin al Result Performing Organization Address [facility] Co de Phone Number [facility] Department [place] [address] * (ABNORMAL) Urinalysis reflex to microscopic (10/24/2024 2:11 AM TURBINE ROOM ATTENDANT) Color, ur Yellow Yellow Clarity, ur Cloudy(A) Clear [facility] Specific gravity, ur 1.031(H) 1.003 - 1.030 [facility] pH, urine 6.0 [facility] Comment: Interpretive Data U rine pH is affected by diet, medications, systemic acid-base disturbances, and renal tubular function. pH may affect urinary stone formation. For example, urine pH below 6.0 may help reduce the tendency for calcium phosphate stones and pH greater than 6.0 may reduce the tendency for uric acid stone formation. Source: [facility] Current Interpretive Data was last revised on 2017 Protein, ur ql 1+(A) Negative [facility] Glucose, ur ql Negative Negative [facility] Ketones, ur Negative Negative [facility] Bilirubin, ur 2+(A) Negative [facility] Blood, ur Negative Negative [facility] Urobilinogen, ur 2.0(A) <2.0 mg/dL [facility] Nitrite, ur Negative Negative [facility] Leukocyte esterase, ur Negative Negative [facility] UA reflex comment Reflex to microscopic UA will be performed. [facility] Urine 10/24/2024 2:11 AM TURBINE ROOM ATTENDANT 10/24/2024 2:16 AM TURBINE ROOM ATTENDANT Bailey Horta MD LAB URINE ORDERABLES Final Result [facility] [place] [address] * (ABNORMAL) Urinalysis, microscopic only (10/24/2024 2:11 AM TURBINE ROOM ATTENDANT) WBC, ur 0-5 0 - 5 /HPF RBC, ur 0-2 0 - 2 /HPF [facility] Bacteria, ur Trace(A) [facility] Mucous, ur Present(A) [facility] Calcium oxalate crystals, ur Trace(A) [facility] Granular casts, ur 6-10(A) 0 - 0 /LPF [facility] Urine 10/24/2024 2:11 AM TURBINE ROOM ATTENDANT 10/24/2024 2:16 AM TURBINE ROOM ATTENDANT us Bailey Juju Zanaboni MD LAB URINE ORDERABLES Final Result [facility] [place] [address] * CT Body Outside Consult (10/24/2024 1:56 AM TURBINE ROOM ATTENDANT) Anatomical Region Laterality Modality Body N/A Computed Tomogra phy 10/24/2024 4:39 AM TURBINE ROOM ATTENDANT Impressions 10/24/2024 9:03 AM TURBINE ROOM ATTENDANT 1. Pancreatic head mass highly concerning for pancreatic ductal adenocarcinoma with upstream severe biliary ductal dilation and pancreatic ductal dilation. This mass is locally invasive as described above. No definite evidence of distant metastatic disease, however there are multiple hypoattenuating liver lesions, the majority of these likely represent cysts, and others are too small to characterize. MR may be helpful in further characterizing these liver lesions and pancreas protocol CT in the vascular involvement of this mass. 2. Thickening of the colonic hepatic flexure can be seen in mild colitis. The findings, conclusions and recommendations within this report do not replace the initial findings, conclusions and recommendations made at the facility where the study was performed based upon the imaging and clinical condition at that time. Comparison with the prior report and clinical history is necessary. The provided images may or may not represent the kotlik source data set and thus may contain changes that may lower the accuracy of this second-opinion interpretation. Dictated by: Ethan Ramirez MD The radiology attending physician has personally reviewed this study, and had reviewed and/or edited this written report and agrees with it. Electronically signed by: Devon Leavitt M.D. Narrative 10/24/2024 9:03 AM TURBINE ROOM ATTENDANT EXAMINATION: RADIOLOGY CONSULTATION ON OUTSIDE IMAGING STUDY STUDY INITIALLY PERFORMED: 10/22/2024 at [facility]. TYPE OF STUDY: Multiple CT images of the abdomen and pelvis with intravenous contrast are provided at the time of this interpretation. CONTRAST ROUTE: Intravenous The protocol was adequate to address the clinical question. The outside final report was not available at the time of this second opinion interpretation. TYPE OF CONSULTATION: Consult on outside imaging study with images submitted through [employer] DATE OF CONSULTATION: 10/24/2024 4:28 AM HISTORY: Elevated bilirubin, new pancreatic mass COMPARISON: None available. FINDINGS: The heart size is normal. No pericardial effusion. Coronary vascular calcifications. The main pulmonary artery is normal in caliber. The thoracic aorta is normal in caliber. No pleural effusion. No axillary, supraclavicular, mediastinal, or hilar lymphadenopathy. Nondistended esophagus. The central airways are unremarkable. Biapical pleural-parenchymal scarring. No suspicious pulmonary nodule, consolidation, or pneumothorax. There are multiple hypoattenuating hepatic lesions, some of which are too small to characterize, and other represents cyst there is diffuse intrahepatic and extra hepatic biliary ductal dilation with distention of the gallbladder. The portal veins, splenic vein, and proximal superior mesenteric veins are patent. Spleen is normal. The pancreas has diffuse pancreatic ductal dilation with a hypoenhancing mass in the head and uncinate process measuring approximately 3.0 x 1.1 cm. This has approximately 180 degrees abutment of the superior mesenteric vein. There is possible abutment of the superior mesenteric artery (series 3 image 148). There is likely invasion of the surrounding duodenum. This mass likely also abuts the portal splenic confluence and narrows it. Bilateral adrenal glands are normal. The kidneys enhance symmetrically and there is no hydronephrosis. The urinary bladder is normal. The prostate is present. There is moderate stool within the rectum. There is decompression of the proximal transverse and ascending colon. No bowel obstruction. Abdominal aorta is normal in course and caliber with atherosclerotic calcification. No pelvic or abdominal definite lymphadenopathy. No omental or peritoneal nodularity. No ascites. No pneumoperitoneum. Multilevel degenerative changes in the spine. No suspicious osseous lesion. Procedure Note Devon Leavitt MD - 10/24/2024 EXAMINATION: RADIOLOGY CONSULTATION ON OUTSIDE IMAGING STUDY STUDY INITIALLY PERFORMED: 10/22/2024 at [facility]. TYPE OF STUDY: Multiple CT images of the abdomen and pelvis with intravenous contrast are provided at the time of this interpretation. CONTRAST ROUTE: Intravenous The protocol was adequate to address the clinical question. The outside final report was not available at the time of this second opinion interpretation. TYPE OF CONSULTATION: Consult on outside imaging study with images submitted through Outside Image Sharing Service DATE OF CONSULTATION: 10/24/2024 4:28 AM HISTORY: Elevated bilirubin, new pancreatic mass COMPARISON: None available. FINDINGS: The heart size is normal. No pericardial effusion. Coronary vascular calcifications. The main pulmonary artery is normal in caliber. The thoracic aorta is normal in caliber. No pleural effusion. No axillary, supraclavicular, mediastinal, or hilar lymphadenopathy. Nondistended esophagus. The central airways are unremarkable. Biapical pleural-parenchymal scarring. No suspicious pulmonary nodule, consolidation, or pneumothorax. There are multiple hypoattenuating hepatic lesions, some of which are too small to characterize, and other represents cyst there is diffuse intrahepatic and extra hepatic biliary ductal dilation with distention of the gallbladder. The portal veins, splenic vein, and proximal superior mesenteric veins are patent. Spleen is normal. The pancreas has diffuse pancreatic ductal dilation with a hypoenhancing mass in the head and uncinate process measuring approximately 3.0 x 1.1 cm. This has approximately 180 degrees abutment of the superior mesenteric vein. There is possible abutment of the superior mesenteric artery (series 3 image 148). There is likely invasion of the surrounding duodenum. This mass likely also abuts the portal splenic confluence and narrows it. Bilateral adrenal glands are normal. The kidneys enhance symmetrically and there is no hydronephrosis. The urinary bladder is normal. The prostate is present. There is moderate stool within the rectum. There is decompression of the proximal transverse and ascending colon. No bowel obstruction. Abdominal aorta is normal in course and caliber with atherosclerotic calcification. No pelvic or abdominal definite lymphadenopathy. No omental or peritoneal nodularity. No ascites. No pneumoperitoneum. Multilevel degenerative changes in the spine. No suspicious osseous lesion. IMPRESSION: 1. Pancreatic head mass highly concerning for pancreatic ductal adenocarcinoma with upstream severe biliary ductal dilation and pancreatic ductal dilation. This mass is locally invasive as described above. No definite evidence of distant metastatic disease, however there are multiple hypoattenuating liver lesions, the majority of these likely represent cysts, and others are too small to characterize. MR may be helpful in further characterizing these liver lesions and pancreas protocol CT in the vascular involvement of this mass. 2. Thickening of the colonic hepatic flexure can be seen in mild colitis. The findings, conclusions and recommendations within this report do not replace the initial findings, conclusions and recommendations made at the facility where the study was performed based upon the imaging and clinical condition at that time. Comparison with the prior report and clinical history is necessary. The provided images may or may not represent the [place]otlik source data set and thus may contain changes that may lower the accuracy of this second-opinion interpretation. Dictated by: Ethan Ramirez MD The radiology attending physician has personally reviewed this study, and had reviewed and/or edited this written report and agrees with it. Electronically signed by: Devon Leavitt M.D. Leslie Pena MD IMG CT PROCEDURES Final Result * eGFR (10/23/2024 9:55 PM TURBINE ROOM ATTENDANT) eGFR >90 >=60 mL/min/1. 73 m2 Comment: Interpretive Data Reference Interval Normal >/= 90 mL/min/1.73m2 Mildly decreased* 60 - 89 mL/min/1.73m2 Mildly to moderately decreased 45 - 59 mL/min/1.73m2 Moderately to severely decreased 30 - 44 mL/min/1.73m2 Severely decreased 15 - 29 mL/min/1.73m2 Kidney Failure < 15 mL/min/1.73m2 *Relative to young adult level Estimated glomerular filtration rate is determined by the 2020 CKD-EPI equation recommended by the National Kid[employer] (A Unifying Approach to GFR Estimation: Recommendations of the NKF-ASK Task Force on Reassessing the Inclusion of Race in Diagnosing Kidney Disease, JASN 2020). The CKD-EPI equation should not be used for patients with unstable renal function and has not been validated in children and those over 70. Current interpretive data was last reviewed 2021. Blood 10/23/2024 9:55 PM TURBINE ROOM ATTENDANT 10/24/2024 2:28 AM TURBINE ROOM ATTENDANT us Matheus Mayfield MD LAB BLOOD ORDERABLES Final Res ult [facility] Department [place] [address] * (ABNORMAL) Differential, auto (10/23/2024 9:55 PM TURBINE ROOM ATTENDANT) Neutrophil abs 6.6(H) 1.5 - 6.5 K/cumm Imm gran abs 0.0 0.0 - 0.1 K/cumm [facility] Lymphocyte abs 1.2 0.8 - 3.3 K/cumm [facility] Monocyte abs 0.7 0.2 - 0.8 K/cumm [facility] Eosinophil abs 0.1 0.0 - 0.5 K/cumm [facility] Basophil abs 0.1 0.0 - 0.1 K/cumm [facility] Neutrophil pct 75.9 % [facility] Comment: Interpretive Data Percent cell count reference ranges are not reported, since discordance with absolute values may lead to misinterpretation of CBC data. Current Interpretive Data was last revised on 2017. Imm gran pct 0.3 % [facility] Comment: Interpretive Data Percent cell count reference ranges are not reported, since discordance with absolute values may lead to misinterpretation of CBC data. Current Interpretive Data was last revised on 2017. Lymphocyte pct 13.2 % [facility] Comment: Interpretive Data Percent cell count reference ranges are not reported, since discordance with absolute values may lead to misinterpretation of CBC data. Current Interpretive Data was last revised on 2017. Monocyte pct 8.4 % [facility] Comment: Interpretive Data Percent cell count reference ranges are not reported, since discordance with absolute values may lead to misinterpretation of CBC data. Current Interpretive Data was last revised on 2017. Eosinophil pct 1.5 % [facility] Comment: Interpretive Data Percent cell count reference ranges are not reported, since discordance with absolute values may lead to misinterpretation of CBC data. Current Interpretive Data was last revised on 2017. Basophil pct 0.7 % [facility] Comment: Interpretive Data Percent cell count reference ranges are not reported, since discordance with absolute values may lead to misinterpretation of CBC data. Current Interpretive Data was last revised on 2017. Blood 10/23/2024 9:55 PM TURBINE ROOM ATTENDANT 10/23/2024 10:18 PM TURBINE ROOM ATTENDANT us Bailey Horta MD LAB BLOOD ORDERABLES Final Result [facility] Department [place] [address] * Critical Result Callback Chemistry (10/23/2024 9:55 PM TURBINE ROOM ATTENDANT) Pathologist [facility] Date Notified [id number] Time Notified 12 [facility] TestName lipase [facility] Called/Read Back Milena [facility] Credentials RN [facility] Called By [facility] Blood 10/23/2024 9:55 PM TURBINE ROOM ATTENDANT 10/23/2024 10:18 PM TURBINE ROOM ATTENDANT us Bailey Horta MD LAB BLOOD ORDERABLES Final Result [facility] Department [place] [address] * CBC with auto differential (10/23/2024 9:55 PM TURBINE ROOM ATTENDANT) [facility] WBC 8.8 3.8 - 9.9 K/cumm Hgb 13.3 13.0 - 17.5 g/dL [facility] Hct 40.5 38.9 - 50.3 % [facility] Plt 294 150 - 400 K/cumm [facility] MPV 10.3 9.1 - 12.3 fL [facility] RBC 4.57 4.30 - 5.80 M/cumm [facility] MCV 88.6 81.3 - 96.4 fL [facility] MCH 29.1 27.1 - 33.3 pg [facility] MCHC 32.8 32.3 - 35.7 g/dL [facility] RDW CV 13.4 11.1 - 14.9 % [facility] RDW SD 43.1 35.7 - 48.1 fL [facility] NRBC abs 0.00 0.00 - 0.01 K/cumm [facility] Blood 10/23/2024 9:55 PM TURBINE ROOM ATTENDANT 10/23/2024 10:18 PM TURBINE ROOM ATTENDANT us Bailey Horta MD LAB BLOOD ORDERABLES Final Result [facility] [place] [address] * aPTT (10/23/2024 9:55 PM TURBINE ROOM ATTENDANT) aPTT 34 28 - 38 sec Comment: Interpretive Data Heparin therapeutic range: 66.0 - 100.0 seconds. Range based on correlation with therapeutic heparin activity range of 0.3 - 0.7 Units/mL. Current interpretive data was last revised on 2023. Blood 10/23/2024 9:5 5 PM TURBINE ROOM ATTENDANT 10/23/2024 10:27 PM TURBINE ROOM ATTENDANT Bailey Horta MD LAB BLOOD ORDERABLES Final Result Performing Organization Address [facility] [place] [address] * (ABNORMAL) Protime-INR (10/23/2024 9:55 PM TURBINE ROOM ATTENDANT) PT 13.6(H) 9.7 - 13.0 sec INR 1.25(H) 0.90 - 1.20 [facility] Comment: Interpretive data Oral anticoagulant therapeutic ranges: Venous thromboembolism prophylaxis or treatment: 2.0-3.0 CARDIOLOGY Standard range: 2.0-3.0 High-intensity range: 2.5-3.5 Refer to indication-specific guidelines for appropriate target ranges for prosthetic heart valve replacement. Current interpretive data was last revised on 2019. Blood 10/23/2024 9:55 PM TURBINE ROOM ATTENDANT 10/23/2024 10:27 PM TURBINE ROOM ATTENDANT Bailey Horta MD LAB BLOOD ORDERABLES Final Result Performing Organization Address [facility] de Phone Number [facility] [place] [address] * (ABNORMAL) Lipase (10/23/2024 9:55 PM TURBINE ROOM ATTENDANT) Pathologist [facility] Lipase 680(C) 10 - 99 Units/L Blood 10/23/2024 9:55 PM TURBINE ROOM ATTENDANT 10/23/2024 10:18 PM TURBINE ROOM ATTENDANT Bailey Horta MD LAB BLOOD ORDERABLES Final Result [facility] [place] [address] * (ABNORMAL) Hepatic function panel (10/23/2024 9:55 PM TURBINE ROOM ATTENDANT) [facility] Bilirubin, total 5.6(H) 0.1 - 1.2 mg/dL Bilirubin, direct 4.3(H) 0.1 - 0.3 mg/dL [facility] Protein, pl 7.7 6.5 - 8.5 g/dL [facility] Albumin 4.0 3.5 - 5.0 g/dL [facility] Alk phos 912(H) 40 - 130 Units/L [facility] ALT 548(H) 7 - 55 Units/L [facility] AST 367(H) 10 - 50 Units/L [facility] Blood 10/23/2024 9:55 PM TURBINE ROOM ATTENDANT 10/23/2024 10:18 PM TURBINE ROOM ATTENDANT Bailey Horta MD LAB BLOOD ORDERABLES Final Result Performing Organization Address City/[facility]/ZIP Co de Phone Number [facility] [place] [address] * (ABNORMAL) Basic metabolic panel (10/23/2024 9:55 PM TURBINE ROOM ATTENDANT) [facility] Sodium 142 135 - 145 mmol/L Potassium, pl 3.8 3.3 - 4.9 mmol/L [facility] Chloride 103 97 - 110 mmol/L [facility] CO2 23 22 - 32 mmol/L [facility] Anion gap 16(H) 2 - 15 mmol/L [facility] BUN 10 6 - 25 mg/dL [facility] Creatinine 0.87 0.80 - 1.30 mg/dL [facility] Glucose 152 70 - 199 mg/dL [facility] Comment: Interpretive Data Fasting glucose >/= 126 mg/dl is diagnostic for diabetes. Fasting is defined as no caloric intake for at least 8 hours. Fasting glucose between 100 mg/dl to 125 mg/dl is diagnostic of prediabetes. In a patient with classic symptoms of hyperglycemia or hyperglycemic crisis, a random glucose >/= 200 mg/dl is diagnostic for diabetes. In the absence of unequivocal hyperglycemia, results should be confirmed by repeat testing. The classification and Diagnosis of Diabetes Diabetes Care 202; 46: S19-S40. Current interpretive data was last revised 2022. Calcium 9.3 8.5 - 10.3 mg/dL [facility] Blood 10/23/2024 9:55 PM TURBINE ROOM ATTENDANT 10/23/2024 10:18 PM TURBINE ROOM ATTENDANT Matheus Mayfield MD LAB BLOOD ORDERABLES Final Res ult [facility] Department [place] [address] from Last 3 Months Additional Health Concerns Active Problems Noted Date Diagnosed Date Initial Follow-Up Appointment 10/30/2024 Follow-Up with an Appropriate Specialist Needed 10/30/2024 [place] [address] [facility] MEDICARE SUPPLEMENT MEDICARE [facility] MEDICARE SUPPLEMENT Advance Directives For more information, please contact: [phone] * Full Code (Latest Code Status on File) Date Activated Date Inactivated Comments 10/24/2024 7:51 AM 10/29/2024 5:57 PM Care Teams Electronics Repair Technician Relationship Specialty Start Date End Date Nura Moore MD [facility] [facility] [place] [address] PCP - General Family Practice 10/27/24 Carie Garcia, [facility] [address] [facility] ([facility] Mailstop [phone] [place] [address] [facility] Outpatient Echo Technician 10/30/24
--- OUTSIDE RECORDS SUMMARY | 2024-11-05 10:41 | XMS_ITS | Referral Summary ---
Author Organization [facility] Address [address] [place] [address] Care Team Providers Care Inventory And Pricing Associate Name Role Phone Nura Moore MD Primary Care Provider Carie Garcia FLORAL ASSISTANT Unavailable [phone] Encounters Date Type Department Care Team Description 10/30/2024 SHOP/CHAP Initial Outreach [facility] OP CASE MANAGEMENT [address] [place] [address] Carie Garcia LCSW 10/30/2024 Telephone Oncology YvetteEdmond sterling MD PhD 10/30/2024 Orders Only [facility] Surgery [address] [place] [address] [place] [phone] Ese Butler MD Malignant neoplasm of pancreas, unspecified location of malignancy (HCC) (Primary Dx) 10/30/2024 Orders Only [facility] Surgery [address] [place] [address] [address] [place] [address] Ese Butler MD Malignant neoplasm of pancreas, unspecified location of malignancy (HCC) (Primary Dx) 10/30/2024 SHOP/CHAP Initial Eligibility Review [facility] OP CASE MANAGEMENT [address] [place] [address] Carie Garcia LCSW 10/24/2024 1:11 AM AUTO RADIATOR MECHANIC - 10/29/2024 1:57 PM AUTO RADIATOR MECHANIC Hospital Encounter [facility] [address] [place] [address] Matheus Mayfield MD Thomas, MD Siomara Daugherty Nicholas Robert, MD Shaikh, Safia, MD Malignant neoplasm of pancreas, unspecified location of malignancy (HCC) (Primary Dx); Elevated lipase; Elevated bilirubin; Elevated liver enzymes Discharge Disposition: Discharge to home or self care 10/27/2024 1:50 PM AUTO RADIATOR MECHANIC Anesthesia Event [facility] [place] [address] [facility] [address] [place] [address] Nancy Sarkar MD 10/27/2024 12:30 PM AUTO RADIATOR MECHANIC - 10/27/2024 1:35 PM AUTO RADIATOR MECHANIC Surgery [facility] [place] [id number] [address] Tres Olsen MD ESOPHAGOGASTRODUODENOSCOPY ULTRASOUND FINE NEEDLE ASPIRATION/BIOPSY [GI534] from Last 3 Months Allergies No known active allergies Medications amLODIPine [...] (1,000 Units total) by mouth daily Active epvmmcjx-uby-xs lic-vit K-lycop 400-20-370 mcg tablet Take 1 tablet by mouth daily Active glucosamine HCl 1,500 mg tablet Take 1,500 mg by mouth 2 (two) times a day Active potassium chloride ER (KLOR-CON) 20 mEq CR tablet Take 2 tablets (40 mEq total) by mouth every 4 (four) hours for 1 dose 2 tablet 5 10/30/19 25 Active Problems Problem Noted Date Diagnosed Date Malignant neoplasm of pancre as, unspecified location of malignancy 10/24/2024 Elevated bilirubin 10/23/2024 Social History Tobacco Use Types Packs/Day Years Used Date Smoking Tobacco: Never Smokeless Tobacco: Never Tobacco Cessation:Counseling Given: Not Answered [facility] Utilities Answer Date Recorded In the past 12 months has th e [employer], gas, oil, or water company threatened to shut off services in your [...] often do you attend chur ch or congregation services? More than 4 times per year 10/30/2024 Do you belong to any clubs o r organizations such as alevism groups, unions, fraternal or athletic groups, or [...] and heating? Not hard at all 10/30/2024 [facility] [place] of Occupat ional Health - Occupational Stress [...] any time in the past 12 m [facility], were you homeless or living in a long-term (including now)? No 10/30/2024 Personal Safety Answer Date Recorded Have you ever been in or are you currently in a harmful physical or emotional relationship or is someone making you feel afraid or unsafe? Denies 10/23/2024 Sex and Gender Information Value Date Recorded Sex Assigned at Not on file Legal Sex Male 6:43 PM AUTO RADIATOR MECHANIC Gender Identity Not on file Sexual Orientation Not on file Last Filed Vital Signs Vital Sign Reading Time Taken Comments Blood Pressure 111/62 10/29/2024 7:17 AM AUTO RADIATOR MECHANIC Pulse 86 10/29/2024 7:17 AM AUTO RADIATOR MECHANIC Temperature 36.7 C (98.1 F) 10/29/2024 7:18 AM AUTO RADIATOR MECHANIC Respiratory Rate 18 10/29/2024 7:17 AM AUTO RADIATOR MECHANIC Oxygen Saturation 95% 10/29/2024 7:17 AM AUTO RADIATOR MECHANIC Inhaled Oxygen Concentration - - Weight 76.1 kg (167 lb 12.3 oz) 10/29/2024 4:39 AM AUTO RADIATOR MECHANIC Height 177.8 cm (5' 10 ) 10/27/2024 12: 31 PM AUTO RADIATOR MECHANIC Body Mass Index 24.07 10/27/2024 12:31 PM AUTO RADIATOR MECHANIC Plan of Treatment Not on file Goals Goal Patient Goal Type Associated Problems Recent Progress Patient-Stated? Author Patient will have kept initial appointment and will show signs of improvement to baseline Care Plan Initial Follow-Up Appointment Carie De Oliveira LCSW Note: 10/30 - Pt has a Primary Care appointment on 11/05. Patient will have plan for follow-up with recommended medical claims processor Care Plan Follow-Up with an Appropriate Specialist Needed No Carie Garcia LCSW Note: 10/30 - Oncology Medical Devices Implanted Type Area Stitching Machine Feeder Or Offbearer Device Identifier Shelf Expiration Date Model / Serial / Lot Conmed Maulik Viabil 10mm X 6cm Shortwire [id number] - [id number] - [id number] Implanted:Qty: 1 on 10/27/2024 by Tres Olsen MD at [facility] N/A: Bile Duct Conmed Maulik 07/28/2027 [id number] / [id number] / Procedures Procedure Name Priority Date/Time Associated Diagnosis Comments EGFR Routine 10/29/2024 2:38 AM AUTO RADIATOR MECHANIC DIFFERENTIAL AUTO Routine 10/29/2024 2:38 AM AUTO RADIATOR MECHANIC COMPREHENSIVE METABOLIC PANEL Routine 2:38 AM AUTO RADIATOR MECHANIC CBC WITH AUTO DIFFERENTIAL Routine 10/29 2:38 AM AUTO RADIATOR MECHANIC MRI ABDOMEN LIVER W WO CONTRAST IP Routine 10/27/2024 10:21 PM AUTO RADIATOR MECHANIC EGFR Routine 10/27/2024 8:58 PM AUTO RADIATOR MECHANIC DIFFERENTIAL AUTO Routine 10/27/2024 8:58 PM AUTO RADIATOR MECHANIC COMPREHENSIVE METABOLIC PANEL Routine 8:58 PM AUTO RADIATOR MECHANIC CBC WITH AUTO DIFFERENTIAL Routine 10/27 8:58 PM AUTO RADIATOR MECHANIC ERCP IP Routine 10/27/2024 2:50 PM AUTO RADIATOR MECHANIC Malignant neoplasm of pancreas, unspecified location of malignancy (HCC) Elevated bilirubin US ENDOSCOPIC IP Routine 10/27/2024 2:50 PM AUTO RADIATOR MECHANIC Malignant neoplasm of pancreas, unspecified location of malignancy (HCC) Elevated bilirubin FL ERCP BILIARY DUCT IP Routine 10/27/2024 2:48 PM AUTO RADIATOR MECHANIC SURGICAL PATHOLOGY Routine 10/27/2024 2:08 PM AUTO RADIATOR MECHANIC Malignant neoplasm of pancreas, unspecified location of malignancy (HCC) Elevated bilirubin RAD S AND I BILIARY DUCTAL SYSTEM 10/27/2024 1:50 PM AUTO RADIATOR MECHANIC Malignant neoplasm of pancreas, unspecified location of malignancy (HCC) Elevated bilirubin ENDO ADD ON ESOPHAGOGASTRODUODENOSCOPY BIOPSY 10/27/2024 1:50 PM AUTO RADIATOR MECHANIC Malignant neoplasm of pancreas, unspecified location of malignancy (HCC) Elevated bilirubin UPPER EUS 10/27/2024 1:48 PM AUTO RADIATOR MECHANIC ERCP 10/27/2024 1:47 PM AUTO RADIATOR MECHANIC EGFR Routine 10/26/2024 8:11 PM AUTO RADIATOR MECHANIC DIFFERENTIAL AUTO Routine 10/26/2024 8:11 PM AUTO RADIATOR MECHANIC PROTIME-INR Timed 10/26/2024 8:11 PM AUTO RADIATOR MECHANIC COMPREHENSIVE METABOLIC PANEL Routine 8:11 PM AUTO RADIATOR MECHANIC CBC WITH AUTO DIFFERENTIAL Routine 10/26 8:11 PM AUTO RADIATOR MECHANIC EGFR Routine 10/25/2024 8:10 PM AUTO RADIATOR MECHANIC DIFFERENTIAL AUTO Routine 10/25/2024 8:10 PM AUTO RADIATOR MECHANIC COMPREHENSIVE METABOLIC PANEL Routine 8:10 PM AUTO RADIATOR MECHANIC CBC WITH AUTO DIFFERENTIAL Routine 10/25 8:10 PM AUTO RADIATOR MECHANIC HEPATIC FUNCTION PANEL Timed 8:59 AM AUTO RADIATOR MECHANIC CHROMOGRANIN A Timed 10/24/2024 8:59 AM AUTO RADIATOR MECHANIC LACTATE DEHYDROGENASE Timed 10/24/2024 8:59 AM AUTO RADIATOR MECHANIC CEA Timed 10/24/2024 8:59 AM AUTO RADIATOR MECHANIC CANCER ANTIGEN 19-9 Timed 10/24/2024 8:59 AM AUTO RADIATOR MECHANIC EGFR STAT 10/24/2024 2:26 AM AUTO RADIATOR MECHANIC BASIC METABOLIC PANEL STAT 10/24/2024 2:26 AM AUTO RADIATOR MECHANIC URINALYSIS, MICROSCOPIC ONLY STAT 03/2025 2:11 AM AUTO RADIATOR MECHANIC URINALYSIS AND REFLEX TO MICROSCOPIC STAT 10/24/2024 2:11 AM AUTO RADIATOR MECHANIC CT BODY OUTSIDE CONSULT Routine 10/24/19 1:56 AM AUTO RADIATOR MECHANIC EGFR STAT 10/23/2024 9:55 PM AUTO RADIATOR MECHANIC BASIC METABOLIC PANEL STAT 10/23/2024 9:55 PM AUTO RADIATOR MECHANIC CRITICAL RESULT CALLBACK CHEMISTRY STAT 10/23/2024 9:55 PM AUTO RADIATOR MECHANIC DIFFERENTIAL AUTO STAT 10/23/2024 9:55 PM AUTO RADIATOR MECHANIC LIPASE STAT 10/23/2024 9:55 PM AUTO RADIATOR MECHANIC APTT STAT 10/23/2024 9:55 PM AUTO RADIATOR MECHANIC PROTIME-INR STAT 10/23/2024 9:55 PM AUTO RADIATOR MECHANIC HEPATIC FUNCTION PANEL STAT 9:55 PM AUTO RADIATOR MECHANIC CBC WITH AUTO DIFFERENTIAL STAT 10/23 9:55 PM AUTO RADIATOR MECHANIC from Last 3 Months Results * eGFR (10/29/2024 2:38 AM AUTO RADIATOR MECHANIC) eGFR 74 >=60 mL/min/1. 73 m2 Comment: [...] last reviewed 2021. Blood 10/29/2024 2:38 AM AUTO RADIATOR MECHANIC 10/29/2024 2:49 AM AUTO RADIATOR MECHANIC us Kiara Asher MD LAB BLOOD ORDERABLES Final Resul t RIGOBERTO [facility] Department of Laboratories [place], [place] [id number] * (ABNORMAL) Differential, auto (10/29/2024 2:38 AM AUTO RADIATOR MECHANIC) Neutrophil abs 11.1(H) 1.5 - 6.5 K/cumm Imm gran abs 0.1 0.0 - 0.1 K/cumm [facility] Lymphocyte abs 0.7(L) 0.8 - 3.3 K/cumm [facility] Monocyte abs 0.9(H) 0.2 - 0.8 K/cumm [facility] Eosinophil abs 0.1 0.0 - 0.5 K/cumm [facility] Basophil abs 0.0 0.0 - 0.1 K/cumm [facility] Neutrophil pct 86.4 % [facility] Comment: Interpretive Data Percent cell count reference ranges are not reported, since discordance with absolute values may lead to misinterpretation of CBC data. Current Interpretive Data was last revised on 2017. Imm gran pct 0.7 % [facility] Comment: Interpretive Data Percent cell count reference ranges are not reported, since discordance with absolute values may lead to misinterpretation of CBC data. Current Interpretive Data was last revised on 2017. Lymphocyte pct 5.5 % [facility] Comment: Interpretive Data Percent cell count reference ranges are not reported, since discordance with absolute values may lead to misinterpretation of CBC data. Current Interpretive Data was last revised on 2017. Monocyte pct 6.7 % [facility] Comment: Interpretive Data Percent cell count reference ranges are not reported, since discordance with absolute values may lead to misinterpretation of CBC data. Current Interpretive Data was last revised on 2017. Eosinophil pct 0.5 % [facility] Comment: Interpretive Data Percent cell count reference ranges are not reported, since discordance with absolute values may lead to misinterpretation of CBC data. Current Interpretive Data was last revised on 2017. Basophil pct 0.2 % [facility] Comment: Interpretive Data Percent cell count reference ranges are not reported, since discordance with absolute values may lead to misinterpretation of CBC data. Current Interpretive Data was last revised on 2017. Blood 10/29/2024 2:38 AM AUTO RADIATOR MECHANIC 10/29/2024 2:50 AM AUTO RADIATOR MECHANIC us Kiara Asher MD LAB BLOOD ORDERABLES Final Resul t Performing Organization Address [facility] Co de Phone Number [facility] Department [place] [address] * (ABNORMAL) CBC with auto differential (10/29/2024 2:38 AM AUTO RADIATOR MECHANIC) Pathologist [facility] WBC 12.8(H) 3.8 - 9.9 K/cumm Hgb 12.4(L) 13.0 - 17.5 g/dL [facility] Hct 37.5(L) 38.9 - 50.3 % [facility] Plt 209 150 - 400 K/cumm [facility] MPV 10.2 9.1 - 12.3 fL [facility] RBC 4.16(L) 4.30 - 5.80 M/cumm [facility] MCV 90.1 81.3 - 96.4 fL [facility] MCH 29.8 27.1 - 33.3 pg [facility] MCHC 33.1 32.3 - 35.7 g/dL [facility] RDW CV 13.1 11.1 - 14.9 % [facility] RDW SD 43.3 35.7 - 48.1 fL [facility] NRBC abs 0.00 0.00 - 0.01 K/cumm [facility] Blood 10/29/2024 2:38 AM AUTO RADIATOR MECHANIC 10/29/2024 2:50 AM AUTO RADIATOR MECHANIC Kiara Asher MD LAB BLOOD ORDERABLES Final Resul t [facility] Department [place] [address] * (ABNORMAL) Comprehensive metabolic panel (10/29/2024 2:38 AM AUTO RADIATOR MECHANIC) Pathologist [facility] Sodium 143 135 - 145 mmol/L Potassium, pl 2.9(L) 3.3 - 4.9 mmol/L [facility] Chloride 110 97 - 110 mmol/L [facility] CO2 21(L) 22 - 32 mmol/L [facility] Anion gap 12 2 - 15 mmol/L [facility] BUN 12 6 - 25 mg/dL [facility] Creatinine 1.06 0.80 - 1.30 mg/dL [facility] Glucose 134 70 - 199 mg/dL [facility] Comment: Interpretive Data Fasting glucose >/= 126 [...] 2022. Calcium 7.0(L) 8.5 - 10.3 mg/dL [facility] Bilirubin, total 2.9(H) 0.1 - 1.2 mg/dL [facility] Protein, pl 5.9(L) 6.5 - 8.5 g/dL [facility] Albumin 3.0(L) 3.5 - 5.0 g/dL [facility] Alk phos 769(H) 40 - 130 Units/L [facility] ALT 511(H) 7 - 55 Units/L [facility] AST 253(H) 10 - 50 Units/L [facility] Blood 10/29/2024 2:38 AM AUTO RADIATOR MECHANIC 10/29/2024 2:49 AM AUTO RADIATOR MECHANIC us Kiara Asher MD LAB BLOOD ORDERABLES Final Resul t [facility] Department [place] [address] * MRI Abdomen Liver W WO Contrast (10/27/2024 10:21 PM AUTO RADIATOR MECHANIC) Anatomical Region Laterality Modality Body N/A Magnetic Resonan ce 10/28/2024 9:21 AM AUTO RADIATOR MECHANIC Impressions 10/28/2024 10:14 AM AUTO RADIATOR MECHANIC 1. Hypoenhancing mass centered in the uncinate [...] Cameron Roman M.D. Narrative 10/28/2024 10:14 AM AUTO RADIATOR MECHANIC EXAMINATION: MAGNETIC RESONANCE IMAGING OF THE ABDOMEN [...] Final Result * eGFR (10/27/2024 8:58 PM AUTO RADIATOR MECHANIC) eGFR 79 >=60 mL/min/1. 73 m2 Comment: [...] last reviewed 2021. Blood 10/27/2024 8:58 PM AUTO RADIATOR MECHANIC 10/27/2024 9:16 PM AUTO RADIATOR MECHANIC Kiara Asher MD LAB BLOOD ORDERABLES Final Resul t [facility] Department [place] [address] * (ABNORMAL) Differential, auto (10/27/2024 8:58 PM AUTO RADIATOR MECHANIC) Neutrophil abs 7.6(H) 1.5 - 6.5 K/cumm Imm gran abs 0.0 0.0 - 0.1 K/cumm [facility] Lymphocyte abs 1.5 0.8 - 3.3 K/cumm [facility] Monocyte abs 1.0(H) 0.2 - 0.8 K/cumm [facility] Eosinophil abs 0.3 0.0 - 0.5 K/cumm [facility] Basophil abs 0.1 0.0 - 0.1 K/cumm [facility] Neutrophil pct 72.6 % [facility] Comment: Interpretive Data Percent cell count reference ranges are not reported, since discordance with absolute values may lead to misinterpretation of CBC data. Current Interpretive Data was last revised on 2017. Imm gran pct 0.3 % [facility] Comment: Interpretive Data Percent cell count reference ranges are not reported, since discordance with absolute values may lead to misinterpretation of CBC data. Current Interpretive Data was last revised on 2017. Lymphocyte pct 14.0 % [facility] Comment: Interpretive Data Percent cell count reference ranges are not reported, since discordance with absolute values may lead to misinterpretation of CBC data. Current Interpretive Data was last revised on 2017. Monocyte pct 10.0 % [facility] Comment: Interpretive Data Percent cell count reference ranges are not reported, since discordance with absolute values may lead to misinterpretation of CBC data. Current Interpretive Data was last revised on 2017. Eosinophil pct 2.6 % [facility] Comment: Interpretive Data Percent cell count reference ranges are not reported, since discordance with absolute values may lead to misinterpretation of CBC data. Current Interpretive Data was last revised on 2017. Basophil pct 0.5 % [facility] Comment: Interpretive Data Percent cell count reference ranges are not reported, since discordance with absolute values may lead to misinterpretation of CBC data. Current Interpretive Data was last revised on 2017. Blood 10/27/2024 8:58 PM AUTO RADIATOR MECHANIC 10/27/2024 9:16 PM AUTO RADIATOR MECHANIC us Kiara Asher MD LAB BLOOD ORDERABLES Final Resul t [facility] Department [place] [address] * (ABNORMAL) CBC with auto differential (10/27/2024 8:58 PM AUTO RADIATOR MECHANIC) WBC 10.4(H) 3.8 - 9.9 K/cumm Hgb 13.8 13.0 - 17.5 g/dL [facility] Hct 39.7 38.9 - 50.3 % [facility] Plt 301 150 - 400 K/cumm [facility] MPV 10.4 9.1 - 12.3 fL [facility] RBC 4.66 4.30 - 5.80 M/cumm [facility] MCV 85.2 81.3 - 96.4 fL [facility] MCH 29.6 27.1 - 33.3 pg [facility] MCHC 34.8 32.3 - 35.7 g/dL [facility] RDW CV 13.3 11.1 - 14.9 % [facility] RDW SD 41.0 35.7 - 48.1 fL [facility] NRBC abs 0.00 0.00 - 0.01 K/cumm [facility] Blood 10/27/2024 8:58 PM AUTO RADIATOR MECHANIC 10/27/2024 9:16 PM AUTO RADIATOR MECHANIC us Kiara Asher MD LAB BLOOD ORDERABLES Final Resul t [facility] Department [place] [address] * (ABNORMAL) Comprehensive metabolic panel (10/27/2024 8:58 PM AUTO RADIATOR MECHANIC) Sodium 141 135 - 145 mmol/L Potassium, pl 3.9 3.3 - 4.9 mmol/L [facility] Comment:Hemolyzed; Potassium value may be falsely elevated by as much as 0.3-0.5 mmol/L. Suggest redraw and reanalysis. Chloride 101 97 - 110 mmol/L [facility] CO2 28 22 - 32 mmol/L [facility] Anion gap 12 2 - 15 mmol/L [facility] BUN 11 6 - 25 mg/dL [facility] Creatinine 1.00 0.80 - 1.30 mg/dL [facility] Glucose 193 70 - 199 mg/dL [facility] Comment: Interpretive Data Fasting glucose >/= 126 [...] 2022. Calcium 8.9 8.5 - 10.3 mg/dL [facility] Bilirubin, total 4.3(H) 0.1 - 1.2 mg/dL [facility] Protein, pl 7.5 6.5 - 8.5 g/dL [facility] Albumin 4.0 3.5 - 5.0 g/dL [facility] Alk phos 920(H) 40 - 130 Units/L [facility] ALT 686(H) 7 - 55 Units/L [facility] AST 392(H) 10 - 50 Units/L [facility] Comment:Hemolyzed; result ma y be falsely elevated Blood 10/27/2024 8:58 PM AUTO RADIATOR MECHANIC 10/27/2024 9:16 PM AUTO RADIATOR MECHANIC us Kiara Asher MD LAB BLOOD ORDERABLES Final Resul t Performing Organization Address City/[facility]/ZIP Co de Phone Number [facility] Department [place] [address] * [place] ERCP Biliary Duct (10/27/2024 2:48 PM AUTO RADIATOR MECHANIC) Narrative RAD_PACS_[facility] - 10/27/2024 2:48 PM AUTO RADIATOR MECHANIC The images from this study are not interpreted by Radiology. Please refer to the physician's procedure / OR operative note. us Tres Olsen MD IMG FLUOROSCOPY PROCEDURES Final Result Performing Organization Address City/[facility]/ZIP Co de Phone Number [facility] * Surgical pathology (10/27/2024 2:08 PM AUTO RADIATOR MECHANIC) Tissue (Duodenum, Biopsy) 10/27/2024 2:08 PM AUTO RADIATOR MECHANIC Tissue (Pancreas, Biopsy) 10/27/2024 2:13 PM AUTO RADIATOR MECHANIC Narrative PATHOLOGY [facility] - 10/29/2024 5:06 PM AUTO RADIATOR MECHANIC EPIC results best viewed via link to PDF [facility] [place] [address] Note to Patients: This report may contain [...] Gender: M : 1950 (Age: 74) Address: [address] [place], [place] [id number] Hospital #: [id number] Taken:10/27/2024 Received:10/27/2024 Reported: 10/29/2024 Patient Type: [facility] Inpatient Service: Gastroenterology Location: [place] [address] Physician(s): Caryn Bloom MD Nicholas Renz, M.D. Diagnosis: A. Small intestine, duodenum, mass , biopsy: - Adenocarcinoma, with involvement of surface epithelium (see comment) B. Pancreas, head, mass , endoscopic ultrasound-guided fine needle biopsy: - Adenocarcinoma, moderately to poorly differentiated - See comment [facility]/10/29/2024 17:06 By this signature, I attest that the above diagnosis is based upon my personal examination of the slides(and/or other material indicated in the diagnosis). Shaheen Mckoen M.D., Ph.D. Report Electronically Reviewed and Signed [...] cm in aggregate). Labeled B1. Jar 0. [facility]/10/27/2024 17:33 PA(s): Mavis Mason By this signature, I attest that the above diagnosis is based upon my personal examination of the slides(and/or other material). Addenda/Procedures The performance characteristics of some immunohistochemical stains, fluorescence in-situ hybridization tests and immunophenotyping by flow cytometry cited in this report (if any) were determined by the Surgical Pathology and Flow Cytometry Departments at [facility] as part of an ongoing quality assurance representative program and in compliance with federally mandated [...] Surgical Pathology and Flow Cytometry Departments of [facility]. It has not been cleared or approved by the U. [place]. Food and Drug Administration. IMAGES AND SCANNED DOCUMENTS, IF INCLUDED, ONLY VIEWABLE IN PDF VERSION OF REPORT us Tres Olsen MD LAB PATHOLOGY ORDERABLES [facility] Result PATHOLOGY [facility] 3rd Floor [place], [place] [phone] * Upper EUS (10/27/2024 1:48 PM AUTO RADIATOR MECHANIC) Anatomical Region Laterality Modality Other Narrative Procedure Note Tres Olsen MD - 10/27/2024 1:48 PM CST [facility] Patient Name: Grupo Bolivar Procedure Date: 10/27/2024 1:48 PM Date of : 1950 Admit Type: Inpatient Age: 74 Gender: Male Attending MD: Tres Olsen M.D. Room: [facility] ENDOSCOPY ROOM 2 Note Status: Finalized Procedure: [...] the second partof duodenum The GIF [id number] endoscope was introduced through the mouth, and [...] Final Result * ERCP (10/27/2024 1:47 PM AUTO RADIATOR MECHANIC) Anatomical Region Laterality Modality Other Narrative Procedure Note Tres Olsen MD - 10/27/2024 1:47 PM CST [facility] Patient Name: Grupo Bolivar Procedure Date: 10/27/2024 1:47 PM Date of : 1950 Admit Type: Inpatient Age: 74 Gender: Male Attending MD: Tres Olsen M.D. Room: [facility] ENDOSCOPY ROOM 2 Note Status: Finalized Procedure: [...] were discussed and informed consentwas obtained. The [id number] Duodenoscope wasintroduced through the mouth, and used to inject contrast into and used to inject contrast into the bile duct. The ERCP was technically difficult and complex due to challenging cannulation. Findings: A biliary stent was visible on the patent solicitor film. The esophagus was successfully intubated under [...] passed into the biliary tree. The [employer] [id number] was passed over the guidewire and the [...] Final Result * eGFR (10/26/2024 8:11 PM AUTO RADIATOR MECHANIC) eGFR 83 >=60 mL/min/1. 73 m2 Comment: [...] last reviewed 2021. Blood 10/26/2024 8:11 PM AUTO RADIATOR MECHANIC 10/26/2024 8:24 PM AUTO RADIATOR MECHANIC us Kiara Asher MD LAB BLOOD ORDERABLES Final Resul t [facility] Department [place] [address] * Differential, auto (10/26/2024 8:11 PM AUTO RADIATOR MECHANIC) Neutrophil abs 5.8 1.5 - 6.5 K/cumm Imm gran abs 0.0 0.0 - 0.1 K/cumm [facility] Lymphocyte abs 1.8 0.8 - 3.3 K/cumm [facility] Monocyte abs 0.8 0.2 - 0.8 K/cumm [facility] Eosinophil abs 0.5 0.0 - 0.5 K/cumm [facility] Basophil abs 0.1 0.0 - 0.1 K/cumm [facility] Neutrophil pct 64.7 % [facility] Comment: Interpretive Data Percent cell count reference ranges are not reported, since discordance with absolute values may lead to misinterpretation of CBC data. Current Interpretive Data was last revised on 2017. Imm gran pct 0.3 % [facility] Comment: Interpretive Data Percent cell count reference ranges are not reported, since discordance with absolute values may lead to misinterpretation of CBC data. Current Interpretive Data was last revised on 2017. Lymphocyte pct 19.7 % [facility] Comment: Interpretive Data Percent cell count reference ranges are not reported, since discordance with absolute values may lead to misinterpretation of CBC data. Current Interpretive Data was last revised on 2017. Monocyte pct 9.3 % [facility] Comment: Interpretive Data Percent cell count reference ranges are not reported, since discordance with absolute values may lead to misinterpretation of CBC data. Current Interpretive Data was last revised on 2017. Eosinophil pct 5.2 % [facility] Comment: Interpretive Data Percent cell count reference ranges are not reported, since discordance with absolute values may lead to misinterpretation of CBC data. Current Interpretive Data was last revised on 2017. Basophil pct 0.8 % [facility] Comment: Interpretive Data Percent cell count reference ranges are not reported, since discordance with absolute values may lead to misinterpretation of CBC data. Current Interpretive Data was last revised on 2017. Blood 10/26/2024 8:11 PM AUTO RADIATOR MECHANIC 10/26/2024 8:25 PM AUTO RADIATOR MECHANIC us Kiara Asher MD LAB BLOOD ORDERABLES Final Resul t [facility] Department [place] [address] * (ABNORMAL) CBC with auto differential (10/26/2024 8:11 PM AUTO RADIATOR MECHANIC) WBC 8.9 3.8 - 9.9 K/cumm Hgb 13.0 13.0 - 17.5 g/dL [facility] Hct 38.7(L) 38.9 - 50.3 % [facility] Plt 284 150 - 400 K/cumm [facility] MPV 10.3 9.1 - 12.3 fL [facility] RBC 4.39 4.30 - 5.80 M/cumm [facility] MCV 88.2 81.3 - 96.4 fL [facility] MCH 29.6 27.1 - 33.3 pg [facility] MCHC 33.6 32.3 - 35.7 g/dL [facility] RDW CV 13.2 11.1 - 14.9 % [facility] RDW SD 42.7 35.7 - 48.1 fL [facility] NRBC abs 0.00 0.00 - 0.01 K/cumm [facility] Blood 10/26/2024 8:11 PM AUTO RADIATOR MECHANIC 10/26/2024 8:25 PM AUTO RADIATOR MECHANIC Kiara Asher MD LAB BLOOD ORDERABLES Final Resul t Performing Organization Address City/State/[facility] Co de Phone Number [facility] Department [place] [address] * (ABNORMAL) Protime-INR (10/26/2024 8:11 PM AUTO RADIATOR MECHANIC) PT 13.9(H) 9.7 - 13.0 sec INR 1.28(H) 0.90 - 1.20 [facility] Comment: Interpretive data Oral anticoagulant therapeutic ranges: Venous thromboembolism prophylaxis or treatment: 2.0-3.0 CARDIOLOGY Standard range: 2.0-3.0 High-intensity range: 2.5-3.5 Refer to indication-specific guidelines for appropriate target ranges for prosthetic heart valve replacement. Current interpretive data was last revised on 2019. Blood 10/26/2024 8:1 1 PM AUTO RADIATOR MECHANIC 10/26/2024 8:33 PM AUTO RADIATOR MECHANIC Kiara Asher MD LAB BLOOD ORDERABLES Final Resul t [facility] Department [place] [address] * (ABNORMAL) Comprehensive metabolic panel (10/26/2024 8:11 PM AUTO RADIATOR MECHANIC) Sodium 141 135 - 145 mmol/L Potassium, pl 3.8 3.3 - 4.9 mmol/L [facility] Chloride 105 97 - 110 mmol/L [facility] CO2 26 22 - 32 mmol/L [facility] Anion gap 10 2 - 15 mmol/L [facility] BUN 13 6 - 25 mg/dL [facility] Creatinine 0.96 0.80 - 1.30 mg/dL [facility] Glucose 166 70 - 199 mg/dL [facility] Comment: Interpretive Data Fasting glucose >/= 126 [...] 2022. Calcium 9.0 8.5 - 10.3 mg/dL [facility] Bilirubin, total 5.7(H) 0.1 - 1.2 mg/dL [facility] Protein, pl 7.2 6.5 - 8.5 g/dL [facility] Albumin 3.8 3.5 - 5.0 g/dL [facility] Alk phos 841(H) 40 - 130 Units/L [facility] ALT 691(H) 7 - 55 Units/L [facility] AST 404(H) 10 - 50 Units/L [facility] Blood 10/26/2024 8:11 PM AUTO RADIATOR MECHANIC 10/26/2024 8:24 PM AUTO RADIATOR MECHANIC Kiara Asher MD LAB BLOOD ORDERABLES [facility] [place] [address] * eGFR (10/25/2024 8:10 PM AUTO RADIATOR MECHANIC) eGFR 74 >=60 mL/min/1. 73 m2 Comment: [...] last reviewed 2021. Blood 10/25/2024 8:10 PM AUTO RADIATOR MECHANIC 10/25/2024 8:24 PM AUTO RADIATOR MECHANIC us Kiara Asher MD LAB BLOOD ORDERABLES Final Resul t Performing Organization Address [facility] Co de Phone Number [facility] [place] [address] * Differential, auto (10/25/2024 8:10 PM AUTO RADIATOR MECHANIC) Neutrophil abs 5.6 1.5 - 6.5 K/cumm Imm gran abs 0.0 0.0 - 0.1 K/cumm [facility] Lymphocyte abs 1.7 0.8 - 3.3 K/cumm [facility] Monocyte abs 0.8 0.2 - 0.8 K/cumm [facility] Eosinophil abs 0.2 0.0 - 0.5 K/cumm [facility] Basophil abs 0.1 0.0 - 0.1 K/cumm [facility] Neutrophil pct 66.4 % [facility] Comment: Interpretive Data Percent cell count reference ranges are not reported, since discordance with absolute values may lead to misinterpretation of CBC data. Current Interpretive Data was last revised on 2017. Imm gran pct 0.4 % [facility] Comment: Interpretive Data Percent cell count reference ranges are not reported, since discordance with absolute values may lead to misinterpretation of CBC data. Current Interpretive Data was last revised on 2017. Lymphocyte pct 19.7 % [facility] Comment: Interpretive Data Percent cell count reference ranges are not reported, since discordance with absolute values may lead to misinterpretation of CBC data. Current Interpretive Data was last revised on 2017. Monocyte pct 10.0 % [facility] Comment: Interpretive Data Percent cell count reference ranges are not reported, since discordance with absolute values may lead to misinterpretation of CBC data. Current Interpretive Data was last revised on 2017. Eosinophil pct 2.7 % [facility] Comment: Interpretive Data Percent cell count reference ranges are not reported, since discordance with absolute values may lead to misinterpretation of CBC data. Current Interpretive Data was last revised on 2017. Basophil pct 0.8 % [facility] Comment: Interpretive Data Percent cell count reference ranges are not reported, since discordance with absolute values may lead to misinterpretation of CBC data. Current Interpretive Data was last revised on 2017. Blood 10/25/2024 8:10 PM AUTO RADIATOR MECHANIC 10/25/2024 8:24 PM AUTO RADIATOR MECHANIC us Kiara Asher MD LAB BLOOD ORDERABLES Final Resul t [facility] Department of Laboratories [place], [place] [id number] * CBC with auto differential (10/25/2024 8:10 PM AUTO RADIATOR MECHANIC) WBC 8.4 3.8 - 9.9 K/cumm Hgb 13.2 13.0 - 17.5 g/dL [facility] Hct 40.1 38.9 - 50.3 % [facility] Plt 288 150 - 400 K/cumm [facility] MPV 10.1 9.1 - 12.3 fL [facility] RBC 4.60 4.30 - 5.80 M/cumm [facility] MCV 87.2 81.3 - 96.4 fL [facility] MCH 28.7 27.1 - 33.3 pg [facility] MCHC 32.9 32.3 - 35.7 g/dL [facility] RDW CV 13.3 11.1 - 14.9 % [facility] RDW SD 42.2 35.7 - 48.1 fL [facility] NRBC abs 0.00 0.00 - 0.01 K/cumm [facility] Blood 10/25/2024 8:10 PM AUTO RADIATOR MECHANIC 10/25/2024 8:24 PM AUTO RADIATOR MECHANIC Kiara Asher MD LAB BLOOD ORDERABLES Final Resul t [facility] Department [place] [address] * (ABNORMAL) Comprehensive metabolic panel (10/25/2024 8:10 PM AUTO RADIATOR MECHANIC) Sodium 139 135 - 145 mmol/L Potassium, pl 3.8 3.3 - 4.9 mmol/L [facility] Chloride 103 97 - 110 mmol/L [facility] CO2 28 22 - 32 mmol/L [facility] Anion gap 8 2 - 15 mmol/L [facility] BUN 11 6 - 25 mg/dL [facility] Creatinine 1.06 0.80 - 1.30 mg/dL [facility] Glucose 170 70 - 199 mg/dL [facility] Comment: Interpretive Data Fasting glucose >/= 126 [...] 2022. Calcium 9.2 8.5 - 10.3 mg/dL [facility] Bilirubin, total 5.6(H) 0.1 - 1.2 mg/dL [facility] Protein, pl 7.3 6.5 - 8.5 g/dL [facility] Albumin 3.8 3.5 - 5.0 g/dL [facility] Alk phos 810(H) 40 - 130 Units/L [facility] ALT 701(H) 7 - 55 Units/L [facility] AST 451(H) 10 - 50 Units/L [facility] Blood 10/25/2024 8:10 PM AUTO RADIATOR MECHANIC 10/25/2024 8:24 PM AUTO RADIATOR MECHANIC us Kiara Asher MD LAB BLOOD ORDERABLES Final Resul t [facility] Department [place] [address] * Chromogranin A (10/24/2024 8:59 AM AUTO RADIATOR MECHANIC) Chromogranin A 46 <93 ng/mL [place] ref Lab Comment: ADDITIONAL INFORMATION The testing method is a homogeneous time-resolved immunofluorescent assay manufactured by [employer] and performed on the [employer] Krypt[employer] Compact Plus. Values obtained with different assay [...] examination and other findings. Test Performed by: [facility] [address] [place] [address] Victim Advocate: Hi De Los Santos Ph.D.; CLIA# [id number] Blood 10/24/2024 8:59 AM AUTO RADIATOR MECHANIC 10/24/2024 9:53 AM AUTO RADIATOR MECHANIC Result [facility] Dewayne Hernandez MD LAB BLOOD ORDERABLES Shannan l Result Performing Organization Address [facility] Co de Phone Number [facility] [place] [address] [place] ref [facility] * (ABNORMAL) Cancer antigen 19-9 (10/24/2024 8:59 AM AUTO RADIATOR MECHANIC) CA 19-9 ag 719.0(H) <=35.0 units/mL Comment: Interpretive Data The [employer] CA 19-9 assay procedure was used. Results from different manufacturers or methods may not be comparable. Serial testing should be performed using the same method. Blood 10/24/2024 8:59 AM AUTO RADIATOR MECHANIC 10/24/2024 9:23 AM AUTO RADIATOR MECHANIC Result [facility] Dewayne Hernandez MD LAB BLOOD ORDERABLES Shannan l Result Performing Organization Address [facility] de Phone Number [facility] [place] [address] * (ABNORMAL) Lactate dehydrogenase (LD) (10/24/2024 8:59 AM AUTO RADIATOR MECHANIC) Lactate dehydrogenase (LDH) 272(H) 100 - 250 Units/L Blood 10/24/2024 8:59 AM AUTO RADIATOR MECHANIC 10/24/2024 9:23 AM AUTO RADIATOR MECHANIC Result [facility] Dewayne Hernandez MD LAB BLOOD ORDERABLES Shannan l Result Performing Organization Address [facility] Co de Phone Number [facility] [place] [address] * CEA (10/24/2024 8:59 AM AUTO RADIATOR MECHANIC) CEA 2.4 <=5.0 ng/mL Comment: Interpretive Data: Reference Range: Non-Smokers: 0.0 5.0 ng/mL Smokers: 0.0 6.5 ng/mL The [employer] CEA assay procedure was used. Results from different manufacturers or methods may not be comparable. Serial testing should be performed using the same method. Current interpretive data was last revised 2022. Blood 10/24/2024 8:59 AM AUTO RADIATOR MECHANIC 10/24/2024 9:23 AM AUTO RADIATOR MECHANIC Dewayne Hernandez MD LAB BLOOD ORDERABLES Shannan apple Result Performing Organization Address [facility] Co de Phone Number [facility] Department [place] [address] * (ABNORMAL) Hepatic function panel (10/24/2024 8:59 AM AUTO RADIATOR MECHANIC) Pathologist [facility] Bilirubin, total 5.4(H) 0.1 - 1.2 mg/dL Bilirubin, direct 3.9(H) 0.1 - 0.3 mg/dL [facility] Protein, pl 7.0 6.5 - 8.5 g/dL [facility] Albumin 3.8 3.5 - 5.0 g/dL [facility] Alk phos 828(H) 40 - 130 Units/L [facility] ALT 566(H) 7 - 55 Units/L [facility] AST 387(H) 10 - 50 Units/L [facility] Blood 10/24/2024 8:59 AM AUTO RADIATOR MECHANIC 10/24/2024 9:23 AM AUTO RADIATOR MECHANIC Kiara Asher MD LAB BLOOD ORDERABLES Final Resul t Performing Organization Address [facility] Co de Phone Number [facility] Department [place] [address] * eGFR (10/24/2024 2:26 AM AUTO RADIATOR MECHANIC) [facility] eGFR >90 >=60 mL/min/1. 73 m2 Comment: [...] last reviewed 2021. Blood 10/24/2024 2:26 AM AUTO RADIATOR MECHANIC 10/24/2024 2:43 AM AUTO RADIATOR MECHANIC Leslie Pena MD LAB BLOOD ORDERABLES Fin al Result [facility] Department [place] [address] * (ABNORMAL) Basic metabolic panel (10/24/2024 2:26 AM AUTO RADIATOR MECHANIC) [facility] Sodium 139 135 - 145 mmol/L Potassium, pl 3.2(L) 3.3 - 4.9 mmol/L [facility] Chloride 103 97 - 110 mmol/L [facility] CO2 27 22 - 32 mmol/L [facility] Anion gap 9 2 - 15 mmol/L [facility] BUN 9 6 - 25 mg/dL [facility] Creatinine 0.86 0.80 - 1.30 mg/dL [facility] Glucose 124 70 - 199 mg/dL [facility] Comment: Interpretive Data Fasting glucose >/= 126 [...] 2022. Calcium 9.0 8.5 - 10.3 mg/dL [facility] Blood 10/24/2024 2:26 AM AUTO RADIATOR MECHANIC 10/24/2024 2:43 AM AUTO RADIATOR MECHANIC us Leslie Pena MD LAB BLOOD ORDERABLES Fin al Result [facility] Department [place] [address] * (ABNORMAL) Urinalysis reflex to microscopic (10/24/2024 2:11 AM AUTO RADIATOR MECHANIC) Color, ur Yellow Yellow Clarity, ur Cloudy(A) Clear [facility] Specific gravity, ur 1.031(H) 1.003 - 1.030 [facility] pH, urine 6.0 [facility] Comment: Interpretive Data U rine pH is affected by diet, medications, systemic acid-base disturbances, and renal tubular function. pH may affect urinary stone formation. For example, urine pH below 6.0 may help reduce the tendency for calcium phosphate stones and pH greater than 6.0 may reduce the tendency for uric acid stone formation. Source: [facility] Current Interpretive Data was last revised on 2017 Protein, ur ql 1+(A) Negative [facility] Glucose, ur ql Negative Negative [facility] Ketones, ur Negative Negative [facility] Bilirubin, ur 2+(A) Negative [facility] Blood, ur Negative Negative [facility] Urobilinogen, ur 2.0(A) <2.0 mg/dL [facility] Nitrite, ur Negative Negative [facility] Leukocyte esterase, ur Negative Negative [facility] UA reflex comment Reflex to microscopic UA will be performed. [facility] Urine 10/24/2024 2:11 AM AUTO RADIATOR MECHANIC 10/24/2024 2:16 AM AUTO RADIATOR MECHANIC Bailey Horta MD LAB URINE ORDERABLES Final Result Performing Organization Address [facility] Co de Phone Number [facility] [place] [address] * (ABNORMAL) Urinalysis, microscopic only (10/24/2024 2:11 AM AUTO RADIATOR MECHANIC) WBC, ur 0-5 0 - 5 /HPF RBC, ur 0-2 0 - 2 /HPF [facility] Bacteria, ur Trace(A) [facility] Mucous, ur Present(A) [facility] Calcium oxalate crystals, ur Trace(A) [facility] Granular casts, ur 6-10(A) 0 - 0 /LPF [facility] Urine 10/24/2024 2:11 AM AUTO RADIATOR MECHANIC 10/24/2024 2:16 AM AUTO RADIATOR MECHANIC Bailey Horta MD LAB URINE ORDERABLES Final Result Performing Organization Address [facility] Co de Phone Number [facility] [place] [address] * CT Body Outside Consult (10/24/2024 1:56 AM AUTO RADIATOR MECHANIC) Anatomical Region Laterality Modality Body N/A Computed Tomogra phy 10/24/2024 4:39 AM AUTO RADIATOR MECHANIC Impressions 10/24/2024 9:03 AM AUTO RADIATOR MECHANIC 1. Pancreatic head mass highly concerning for [...] images may or may not represent the [place] [employer] [place] source data set and thus may contain changes that may lower the accuracy of this second-opinion interpretation. Dictated by: Ethan Ramirez MD The radiology attending physician has personally reviewed this study, and had reviewed and/or edited this written report and agrees with it. Electronically signed by: Devon Leavitt M.D. Narrative 10/24/2024 9:03 AM AUTO RADIATOR MECHANIC EXAMINATION: RADIOLOGY CONSULTATION ON OUTSIDE IMAGING STUDY STUDY INITIALLY PERFORMED: 10/22/[address] [facility] [place]. TYPE OF STUDY: Multiple CT images of [...] IMAGING STUDY STUDY INITIALLY PERFORMED: 10/22/[address] [facility] [place]. TYPE OF STUDY: Multiple CT images of [...] images may or may not represent the [place] source data set and thus may contain changes that may lower the accuracy of this second-opinion interpretation. Dictated by: Ethan Ramirez MD The radiology attending physician has personally reviewed this study, and had reviewed and/or edited this written report and agrees with it. Electronically signed by: Devon Leavitt M.D. Leslie Pena MD [facility] CT PROCEDURES Final Result * eGFR (10/23/2024 9:55 PM AUTO RADIATOR MECHANIC) eGFR >90 >=60 mL/min/1. 73 m2 Comment: [...] last reviewed 2021. Blood 10/23/2024 9:55 PM AUTO RADIATOR MECHANIC 10/24/2024 2:28 AM AUTO RADIATOR MECHANIC us Matheus Mayfield MD LAB BLOOD ORDERABLES Final Res ult [facility] [place] [address] * (ABNORMAL) Differential, auto (10/23/2024 9:55 PM AUTO RADIATOR MECHANIC) Neutrophil abs 6.6(H) 1.5 - 6.5 K/cumm Imm gran abs 0.0 0.0 - 0.1 K/cumm [facility] Lymphocyte abs 1.2 0.8 - 3.3 K/cumm [facility] Monocyte abs 0.7 0.2 - 0.8 K/cumm [facility] Eosinophil abs 0.1 0.0 - 0.5 K/cumm [facility] Basophil abs 0.1 0.0 - 0.1 K/cumm [facility] Neutrophil pct 75.9 % [facility] Comment: Interpretive Data Percent cell count reference ranges are not reported, since discordance with absolute values may lead to misinterpretation of CBC data. Current Interpretive Data was last revised on 2017. Imm gran pct 0.3 % [facility] Comment: Interpretive Data Percent cell count reference ranges are not reported, since discordance with absolute values may lead to misinterpretation of CBC data. Current Interpretive Data was last revised on 2017. Lymphocyte pct 13.2 % [facility] Comment: Interpretive Data Percent cell count reference ranges are not reported, since discordance with absolute values may lead to misinterpretation of CBC data. Current Interpretive Data was last revised on 2017. Monocyte pct 8.4 % [facility] Comment: Interpretive Data Percent cell count reference ranges are not reported, since discordance with absolute values may lead to misinterpretation of CBC data. Current Interpretive Data was last revised on 2017. Eosinophil pct 1.5 % [facility] Comment: Interpretive Data Percent cell count reference ranges are not reported, since discordance with absolute values may lead to misinterpretation of CBC data. Current Interpretive Data was last revised on 2017. Basophil pct 0.7 % [facility] Comment: Interpretive Data Percent cell count reference ranges are not reported, since discordance with absolute values may lead to misinterpretation of CBC data. Current Interpretive Data was last revised on 2017. Blood 10/23/2024 9:55 PM AUTO RADIATOR MECHANIC 10/23/2024 10:18 PM AUTO RADIATOR MECHANIC us Bailey Horta MD LAB BLOOD ORDERABLES Final Result Performing Organization Address City/[facility]/ZIP Co de Phone Number [facility] Department [place] [address] * Critical Result Callback Chemistry (10/23/2024 9:55 PM AUTO RADIATOR MECHANIC) Date Notified [id number] Time Notified 12 [facility] TestName rochelle FRANKLIN [facility] Called/Read Back Milena FRANKLIN [facility] Credentials CAROL FRANKLIN [facility] Called By KELVIN FRANKLIN [facility] Blood 10/23/2024 9:55 PM AUTO RADIATOR MECHANIC 10/23/2024 10:18 PM AUTO RADIATOR MECHANIC Bailey Horta MD LAB BLOOD ORDERABLES Final Result [facility] Department [place] [address] * CBC with auto differential (10/23/2024 9:55 PM AUTO RADIATOR MECHANIC) WBC 8.8 3.8 - 9.9 K/cumm Hgb 13.3 13.0 - 17.5 g/dL [facility] Hct 40.5 38.9 - 50.3 % [facility] Plt 294 150 - 400 K/cumm [facility] MPV 10.3 9.1 - 12.3 fL [facility] RBC 4.57 4.30 - 5.80 M/cumm [facility] MCV 88.6 81.3 - 96.4 fL [facility] MCH 29.1 27.1 - 33.3 pg [facility] MCHC 32.8 32.3 - 35.7 g/dL [facility] RDW CV 13.4 11.1 - 14.9 % [facility] RDW SD 43.1 35.7 - 48.1 fL [facility] NRBC abs 0.00 0.00 - 0.01 K/cumm [facility] Blood 10/23/2024 9:55 PM AUTO RADIATOR MECHANIC 10/23/2024 10:18 PM AUTO RADIATOR MECHANIC Bailey Horta MD LAB BLOOD ORDERABLES Final Result Performing Organization Address City/[facility] Co de Phone Number [facility] [place] [address] * aPTT (10/23/2024 9:55 PM AUTO RADIATOR MECHANIC) aPTT 34 28 - 38 sec Comment: Interpretive Data Heparin therapeutic range: 66.0 - 100.0 seconds. Range based on correlation with therapeutic heparin activity range of 0.3 - 0.7 Units/mL. Current interpretive data was last revised on 2023. Blood 10/23/2024 9:55 PM AUTO RADIATOR MECHANIC 10/23/2024 10:27 PM AUTO RADIATOR MECHANIC Bailey Horta MD LAB BLOOD ORDERABLES Final Result Performing Organization Address City/[facility] Co de Phone Number [facility] [place] [address] * (ABNORMAL) Protime-INR (10/23/2024 9:55 PM AUTO RADIATOR MECHANIC) PT 13.6(H) 9.7 - 13.0 sec INR 1.25(H) 0.90 - 1.20 [facility] Comment: Interpretive data Oral anticoagulant therapeutic ranges: Venous thromboembolism prophylaxis or treatment: 2.0-3.0 CARDIOLOGY Standard range: 2.0-3.0 High-intensity range: 2.5-3.5 Refer to indication-specific guidelines for appropriate target ranges for prosthetic heart valve replacement. Current interpretive data was last revised on 2019. Blood 10/23/2024 9:55 PM AUTO RADIATOR MECHANIC 10/23/2024 10:27 PM AUTO RADIATOR MECHANIC Bailey Horta MD LAB BLOOD ORDERABLES Final Result Performing Organization Address [facility] Co de Phone Number [facility] [place] [address] * (ABNORMAL) Lipase (10/23/2024 9:55 PM AUTO RADIATOR MECHANIC) Pathologist [facility] Lipase 680(C) 10 - 99 Units/L Blood 10/23/2024 9:55 PM AUTO RADIATOR MECHANIC 10/23/2024 10:18 PM AUTO RADIATOR MECHANIC Bailey Horta MD LAB BLOOD ORDERABLES Final Result Performing Organization Address [facility] de Phone Number [facility] [place] [address] * (ABNORMAL) Hepatic function panel (10/23/2024 9:55 PM AUTO RADIATOR MECHANIC) Pathologist [facility] Bilirubin, total 5.6(H) 0.1 - 1.2 mg/dL Bilirubin, direct 4.3(H) 0.1 - 0.3 mg/dL [facility] Protein, pl 7.7 6.5 - 8.5 g/dL [facility] Albumin 4.0 3.5 - 5.0 g/dL [facility] Alk phos 912(H) 40 - 130 Units/L [facility] ALT 548(H) 7 - 55 Units/L [facility] AST 367(H) 10 - 50 Units/L [facility] Blood 10/23/2024 9:55 PM AUTO RADIATOR MECHANIC 10/23/2024 10:18 PM AUTO RADIATOR MECHANIC us Bailey Horta MD LAB BLOOD ORDERABLES Final Result Performing Organization Address City/[facility]/ZIP Co de Phone Number [facility] Department [place] [address] * (ABNORMAL) Basic metabolic panel (10/23/2024 9:55 PM AUTO RADIATOR MECHANIC) Sodium 142 135 - 145 mmol/L Potassium, pl 3.8 3.3 - 4.9 mmol/L [facility] Chloride 103 97 - 110 mmol/L [facility] CO2 23 22 - 32 mmol/L [facility] Anion gap 16(H) 2 - 15 mmol/L [facility] BUN 10 6 - 25 mg/dL [facility] Creatinine 0.87 0.80 - 1.30 mg/dL [facility] Glucose 152 70 - 199 mg/dL [facility] Comment: Interpretive Data Fasting glucose >/= 126 [...] 2022. Calcium 9.3 8.5 - 10.3 mg/dL [facility] Blood 10/23/2024 9:55 PM AUTO RADIATOR MECHANIC 10/23/2024 10:18 PM AUTO RADIATOR MECHANIC us Matheus Mayfield MD LAB BLOOD ORDERABLES Final Res ult Performing Organization Address City/[facility] Co de Phone Number [facility] Department [place] [address] from Last 3 Months Additional Health Concerns Active Problems Noted Date Diagnosed Date Initial Follow-Up Appointment 10/30/2024 Follow-Up with an Appropriate Specialist Needed 10/30/2024 Insurance MEDICARE [facility] MEDICARE SUPPLEMENT MEDICARE [facility] MEDICARE SUPPLEMENT Advance Directives For more information, please contact: [phone] * Full Code (Latest Code Status on File) Date Activated Date Inactivated Comments 10/24/2024 7:51 AM 10/29/2024 5:57 PM Care Teams Inventory And Pricing Associate Relationship Specialty Start Date End Date Nura Moore MD [address] [address] PCP - General Family Practice 10/27/24 Carie Garcia, FLORAL ASSISTANT [address] [facility] ([facility]) Mailstop [phone] [place] [address] [facility] Outpatient Patient Services Coordinator 10/30/24
--- OUTSIDE RECORDS SUMMARY | 2024-11-05 10:41 | XMS_ITS ---
Care Plan Created on: November 05, 2024 RajwinderhaydenKotay : 1950 Sex: Male Author Organization [facility] Address [address] [place] [address] Care Team Providers Care Defence Intelligence Analyst Name Role Phone Nura Moore MD Primary Care Provider Carie GarciaW Unavailable [phone] Active Problems Problem Noted Date Diagnosed Date Malignant neoplasm of pancre as, unspecified location of malignancy 10/24/2024 Elevated bilirubin 10/23/2024 Additional Health Concerns Active Problems Noted Date Diagnosed Date Initial Follow-Up Appointment 10/30/2024 Follow-Up with an Appropriate Specialist Needed 10/30/2024 Goals Goal Patient Goal Type Associated Problems Recent Progress Patient-Stated? Author Patient will have kept initial appointment and will show signs of improvement to baseline Care Plan Initial Follow-Up Appointment Carie De Oliveira LCSW Note: 10/30 - Pt has a Primary Care appointment on 11/05. Patient will have plan for follow-up with recommended medical supply technician Care Plan Follow-Up with an Appropriate Specialist Needed Carie De Oliveira LCSW Note: 10/30 - Oncology Interventions Care Plan Interventions Intervention Entry Date Outcome Coordinate with PCP, inpatient providers, or other professionals who may be needed to schedule appointment 10/30/2024 Acquire or follow-up on referrals from referring providers 10/30/2024 Identify and address other barriers to scheduling appointment 10/30/2024 Identify and address other barriers to keeping appointment 10/30/2024 Follow up with patient/ caregivers after appointment to ensure patient understands the care plan and need for subsequent specialized care 10/30/2024 Follow up with patient 2 days after Post Hospital Visit office visit to ensure understanding of changes and follow-up plan 10/30/2024 Coordinate with patient/caregiver(s) to ensure patient is able to keep scheduled appointment 10/30/2024 Address any barriers for keeping scheduled appointment 10/30/2024 Related Goals and Interventions Goal Associated Intervent ions Patient will have kept initi al appointment and will show signs of improvement to baseline Follow up with patient 2 days after Post Hospital Visit office visit to ensure understanding of changes and follow-up plan; Coordinate with patient/caregiver(s) to ensure patient is able to keep scheduled appointment; Address any barriers for keeping scheduled appointment Patient will have plan for f ollow-up with recommended medical supply technician Coordinate with PCP, inpatient providers , or other professionals who may be needed to schedule appointment; Acquire or follow-up on referrals from referring providers; Identify and address other barriers to scheduling appointment; Identify and address other barriers to keeping appointment; Follow up with patient/ caregivers after appointment to ensure patient understands the care plan and need for subsequent specialized care
[2024-11-05 20:11] LABS: Basophils Absolute Auto 0.1 K/mm3 (0.0-0.1); Basophils Percent Auto 0.6 % (0.2-1.2); Eosinophils Absolute Auto 0.3 K/mm3 (0-0.3); Eosinophils Percent Auto 2.7 % (0-4.4); Hematocrit 40.4 % (42.0-52.0); Hemoglobin 12.9 g/dL (14.0-18.0); Immature Granulocyte Absolute 0.13 K/mm3 (0.00-0.031); Immature Granulocyte Percent A 1.4 % (0-0.5); Lymphocytes Absolute Auto 1.63 K/mm3 (0.9-3.2); Lymphocytes Percent Auto 17.4 % (18.3-44.2); Mean Corpuscular HGB Conc 31.9 g/dl (32-36); Mean Corpuscular Volume 90.8 fl (80-100); Mean Platelet Volume 10.5 fl (7.4-10.4); Monocytes Absolute Auto 0.5 K/mm3 (0.1-0.6); Monocytes Percent Auto 5.3 % (2.6-8.5); Neutrophils Absolute Auto 6.8 K/mm3 (1.3-6.7); Neutrophils Percent Auto 72.6 % (45.5-73.1); Platelet Count Result 327 k/mm3 (150-375); Red Blood Count 4.45 M/mm3 (4.6-6.20); Red Cell Distribution Width 12.6 % (11.5-14.5); White Blood Count 9.4 K/mm3 (4.5-10.0)
[2024-11-05 20:47] LABS: Schistocytes None Seen
[2024-11-05 20:49] LABS: Burr Cells 3+
[2024-11-05 20:54] LABS: Alanine Aminotransferase 195 U/L (6-50); Albumin Level 3.2 g/dL (3.5-5.1); Alkaline Phosphatase 483 U/L (38-126); Anion Gap 7 mmol/L (4-12); Aspartate Amino Transferase 88 U/L (17-59); Bilirubin,Total 1.3 mg/dL (0.2-1.3); Blood Urea Nitrogen 13 mg/dL (9-20); Calcium 8.3 mg/dL (8.4-10.2); Carbon Dioxide 33 mmol/L (22-30); Chloride 96 mmol/L (98-107); Estimated Glomerular Filt Rate > 60; Glucose 160 mg/dL (65-110); Lipase 452 U/L (23-300); Potassium 3.4 mmol/L (3.4-5.0); Sodium 136 mmol/L (137-145)
[2024-11-05 21:22] LABS: Platelet Estimate Adequate (Adequate)
== END 2024-11-05 10:28 | disposition home or self-care (01) ==
PROVIDERS: PCP Family Medicine; Visit Provider Family Medicine
DX: C25.9 Malignant neoplasm of pancreas, unspecified (principal); K83.1 Obstruction of bile duct
CPT/HCPCS: 36415; 80053; 83690; 85025